=== PATIENT | male | born 1935 | race Caucasian/White ===

== ENCOUNTER 2020-12-04 18:33 | Emergency (ER) | payer MEDICARE, OTHER, SELFPAY ==
--- NOTE | ~2020-12-04 | CT_ITS ---
EXAMINATION: CT HEAD WITHOUT CONTRAST CLINICAL INFORMATION: Fall and head injury. COMPARISON: No similar priors. TECHNIQUE: Contiguous axial imaging was performed from the skull base to vertex without intravenous administration of contrast. This CT examination was performed using dose optimization techniques as appropriate, variously including the following: *Automated exposure control *Adjustment of mA and/or kV according to patient size (this includes techniques or standardized protocols for targeted exams where dose is matched to indication/reason for exam; i.e. extremities or head) *Use of iterative reconstruction technique DLP: 1154 mGy-cm FINDINGS: There is a small amount of subarachnoid blood products to the right of the interhemispheric falx on images 5253 of series 7 and to the left of the interhemispheric pole on image 50 of series 7. These are also identified on coronal images 87 and 100 of series 11. There is no evidence of edematous territorial infarction. Maldonado-white matter differentiation is preserved. Scattered hypodensities in the periventricular and deep white matter, most consistent with chronic microangiopathy. Proportional prominence of the ventricles and sulcal spaces. No evidence for obstructive hydrocephalus. No abnormal mass effect or midline shift. No extra-axial fluid collections. Hematoma in the occipital scalp. No acute osseous findings. Mucosal thickening of the right maxillary sinus. Other paranasal sinuses and mastoids are clear. CT/CT head/brain wo con IMPRESSION: Small amount of subarachnoid blood products adjacent to the interhemispheric fall as above. Recommend close observation and short-term follow-up imaging to ensure resolution. This critical result was discussed with Efra Jo at 12/04/2020 8:10 PM and it was ascertained that the content and urgency of the report was understood at the time of direct communication.
--- NOTE | ~2020-12-04 | CT_ITS ---
EXAMINATION: CT ABDOMEN AND PELVIS WITHOUT CONTRAST CLINICAL INFORMATION: Abdominal pain after fall COMPARISON: None TECHNIQUE: Multidetector volumetric imaging was performed from the superior aspect of the liver through the pubic symphysis. Sagittal and coronal reformatted images were obtained on the technologist's workstation. This CT examination was performed using dose optimization techniques as appropriate, variously including the following: *Automated exposure control *Adjustment of mA and/or kV according to patient size (this includes techniques or standardized protocols for targeted exams where dose is matched to indication/reason for exam; i.e. extremities or head) *Use of iterative reconstruction technique DLP: 1858 mGy-cm FINDINGS: Visualized lung bases demonstrate mild dependent atelectasis versus scarring. Coronary artery calcifications are partially visualized. The liver is normal in size but demonstrates diffusely decreased attenuation. Gallstones are noted within otherwise unremarkable appearing gallbladder. Fatty atrophy of the pancreas. The spleen and adrenal glands are unremarkable. Symmetrically sized kidneys. There are several nonobstructing renal calculi of the left kidney, largest is located within the lower pole measures approximately 1 cm. There is only a single 1 mm nonobstructing calculus of the right kidney. There is no hydronephrosis of either kidney. Bilateral renal cysts are demonstrated. Normal caliber loops of small and large bowel. Normal appendix. There is mild diffuse circumferential thickening of the rectum, nonspecific. Normal caliber abdominal aorta which demonstrates moderate atherosclerotic disease. No retroperitoneal lymphadenopathy. Punctate focus of air within the subcutaneous tissues of the right anterior abdomen are likely injection related. The bladder is well-distended. There is suspicion for mild diffuse bladder wall thickening. Coarse calcifications are noted within a mildly enlarged prostate gland. There is no gross pelvic fluid. No inguinal lymphadenopathy. Diffuse osteopenia. Moderate diffuse degenerative changes of the spine. Sternotomy wires are partially visualized. CT/CT abdomen pelvis wo con IMPRESSION: 1. No CT evidence for acute abnormality within the abdomen or pelvis. 2. Hepatic steatosis. 3. Cholelithiasis. 4. Bilateral nonobstructing renal calculi without hydronephrosis. 5. Colonic diverticulosis. 6. Mildly enlarged prostate gland with mild diffuse bladder wall thickening suggesting bladder outlet obstruction.
--- NOTE | ~2020-12-04 | XR_ITS ---
EXAMINATION: XR LUMBOSACRAL SPINE CLINICAL INFORMATION: Fall. Back injury. COMPARISON: None TECHNIQUE: Three views of the lumbosacral spine. FINDINGS: 5 nonrib-bearing lumbar vertebral bodies are visualized. Alignment is within normal limits. Vertebral body heights are maintained. Mild narrowing of the L3/4, L4/5 and L5/S1 disc space heights. Prominent anterior osteophytes are noted throughout the lumbar spine. There are mild degenerative changes of the posterior elements of the lower lumbar spine. Vascular calcifications noted. XR/XR lumbar spine 2-3V IMPRESSION: Mild to moderate degenerative changes of the lumbar spine without compression deformity.
[2020-12-04 18:39] VITALS: BP 115/74; BP 138/61; PULSE 69; PULSE 75; RESP 18; TEMP 36.9; O2SAT 99; BMI 29.6
--- NOTE | 2020-12-04 19:15 | ED.FALL ---
HPI - Fall General Chief Complaint: Fall Stated Complaint: slip and fall Time Seen by Provider: 12/04/20 19:13 Source: patient and EMS Mode of arrival: EMS Limitations: no limitations History of Present Illness HPI Narrative: Patient was taking a shower slipped on the wet floor and fell hit his head, no LOC, sustain small laceration on the back of his scalp, patient hit his low back complain of back pain, patient also complained of left side of the abdomen. No neck pain. Patient was able to get himself up and ambulate, came to the emergency department for further evaluation. Related Data Allergies Allergy/AdvReac Type Severity Reaction Status Date / Time No Known Allergies Allergy Verified 12/04/20 19:14 Review of Systems Review of Systems: All other systems are reviewed and are negative Constitutional: Reports as per HPI and Reports no additional constitutional complaints Eyes: Reports as per HPI and Reports no additional eye complaints Reports system reviewed and no additional complaints, except as documented Cardiovascular: Reports as per HPI and Reports no additional cardiovascular complaints Respiratory: Reports as per HPI and Reports no additional respiratory complaints Gastrointestinal: Reports as per HPI and Reports no additional gastrointestinal complaints Genitourinary: Reports no additional female genitourinary complaints Musculoskeletal: Reports no additional musculoskeletal complaints Skin/Breast: Reports system reviewed and no additional complaints, except as docu Psychiatric: Reports no additional psychiatric complaints Endocrine: Reports no additional endocrine complaints Hematologic/Lymphatic: Reports no additional hematologic/lymphatic complaints Allergic/Immunologic: Reports no additional allergic/immunologic complaints Reports system reviewed and no additional complaints, except as documented and Reports Abnormal speech present [facility] Social History Social History Advance Directives: No Advance Directives Information Provided: Yes Physical Exam Vital Signs: Vital Signs: Last Vital Signs Temp 98.2 F 12/04/20 22:03 Pulse 78 12/04/20 22:03 Resp 14 12/04/20 22:03 BP 160/64 H 12/04/20 22:03 Pulse Ox 100 12/04/20 22:03 Body Mass Index 29.6 Vital signs have been reviewed as appeared to be correct. Blood pressure normal. Heart rate normal. Respiration rate normal. Temperature normal. Oxygen saturation normal. Appearance: Alert. Oriented X3. No acute distress. Head: Normal external exam. Normocephalic. Atraumatic. 4 cm laceration on the back of the occiput, no active bleeding Eyes: PERRLA. EOMI. Conjunctiva and sclera normal. Eyelids normal. ENT: TM's Normal. Pharynx normal. Uvula midline. Moist mucous membranes. No trismus noted. No drooling noted. No muffled voice noted. Neck: Normal inspection. Neck supple. FROM. No adenopathy. Thyroid Normal. No meningeal signs. No neck mass noted. CVS: Normal heart rate and rhythm. Heart sound normal. No murmurs noted. Pulses normal throughout. Respiratory: No respiratory distress. Painless inspiration. Breath sounds normal. No wheezes/rales/rhonchi noted. Chest nontender. No accessory muscle usage noted or decreased air movement noted. Abdomen: Soft and nontender. Bowel sounds normal in all 4 quadrants. No distention noted. No organomegaly noted. No visible injury noted. Back: No CVA tenderness. Lumbar spine stable no step-off, no deformity. Skin: Skin warm and dry. Normal skin color. Normal skin turgor. No rashes/lesions/lacerations noted. Extremities: No lower extremity edema. Extremities exhibit normal range of motion. Extremities nontender. Neuro: Oriented X 3. Cranial nerve exam: II-XII are grossly intact No motor deficit. No sensory deficit. Reflexes normal. Course Course Course Narrative: Assessment and plan. 85-year-old male status post mechanical fall while taking a shower, GCS of 15, normal neural exam, CT of the head showed traumatic subarachnoid hemorrhage, case discussed with Dr. Leong trauma surgeon at [facility] who accepted the patient to be evaluated for trauma. Procedures Laceration Laceration 1: Site: scalp Size (cm): 4 Description: linear Depth: simple, single layer Local Anesthetic: lidocaine 1% Amount of anesthesia used (mL): 5 Pre-repair: wound explored Skin layer closed with: other (Nine staple) MDM - Fall Medical Records Attestation: I reviewed the patient's medical records. Lab Data Attestation: I reviewed the patient's lab results. Imaging Data Abdomen and pelvis CT: Radiologist's impression: 1.? No CT evidence for acute abnormality within the abdomen or pelvis. 2.? Hepatic steatosis. 3.? Cholelithiasis. 4.? Bilateral nonobstructing renal calculi without hydronephrosis. 5.? Colonic diverticulosis. 6.? Mildly enlarged prostate gland with mild diffuse bladder wall thickening suggesting bladder outlet obstruction.? CT scan - head: Radiologist's impression: mall amount of subarachnoid blood products adjacent to the interhemispheric fall as above. Recommend close observation and short-term follow-up imaging to ensure resolution. ? Discharge Plan Discharge Clinical Impression: Fall, Traumatic subarachnoid hemorrhage Patient Disposition: Xfer Other Transfer Details: [facility] emergency Department
[2020-12-04] MEDS: Lidocaine HCl 1 % MPF 5 ML VIAL SUBCUT (20:00)
[2020-12-04 20:22] VITALS: BP 154/53; PULSE 67; RESP 20; TEMP 36.6; O2SAT 100
--- NOTE | 2020-12-04 20:23 | PC.NURSE ---
PATIENT HEAD LAC WAS CLEAN BY THIS PCT .
--- NOTE | 2020-12-04 20:24 | PC.NURSE ---
PATIENT WAS CHANGE INTO HOSPITAL ATTIRE BY THIS PCT .
[2020-12-04 22:03] VITALS: BP 160/64; PULSE 78; RESP 14; TEMP 36.8; O2SAT 100
== END 2020-12-06 22:47 | disposition short-term general hospital (02) ==
PROVIDERS: Emergency Provider Emergency Medicine; PCP Internal Medicine
DX: S06.6X9A Traumatic subarachnoid hemorrhage with loss of consciousness of unspecified duration, initial encounter (principal); S01.01XA Laceration without foreign body of scalp, initial encounter; W18.2XXA Fall in (into) shower or empty bathtub, initial encounter; Y93.9 Activity, unspecified; Y92.002 Bathroom of unspecified non-institutional (private) residence as the place of occurrence of the external cause; Y99.9 Unspecified external cause status
CPT/HCPCS: 12002; 70450; 72100; 74176; 99283; 99284

== ENCOUNTER 2021-12-16 17:42 | Emergency (ER) | payer MEDICARE, OTHER, SELFPAY ==
[2021-12-16] VITALS (7 sets, daily range): BP systolic 144–170; BP diastolic 50–68; PULSE 55–63; RESP 16–18; TEMP 36.4–36.5; O2SAT 99; BMI 30.9
--- NOTE | ~2021-12-16 | CT_ITS ---
CT HEAD WITHOUT IV CONTRAST CT CERVICAL SPINE WITHOUT IV CONTRAST INDICATION: Fall. Head strike. COMPARISON: None available. TECHNIQUE: Multidetector CT acquisitions of the head and cervical spine were obtained without IV contrast. Multiplanar reformats were acquired and utilized for image interpretation. This CT examination was performed using dose optimization techniques as appropriate, variously including the following: *Automated exposure control *Adjustment of mA and/or kV according to patient size (this includes techniques or standardized protocols for targeted exams where dose is matched to indication/reason for exam; i.e. extremities or head) *Use of iterative reconstruction technique FINDINGS: HEAD: There is no intracranial hemorrhage, hydrocephalus, extra-axial surface collection, midline shift, or other herniation pattern. Maldonado to white matter differentiation is diffusely maintained without evidence of an evolved acute territorial infarct. The basilar cisterns are preserved. No significant soft tissue abnormality. No acute osseous abnormality. The paranasal sinuses and the mastoid air cells are well aerated. CERVICAL SPINE: No acute fractures and no acute subluxations. Bridging multilevel anterior plate osteophytes within the lower cervical and thoracic spine in keeping with diffuse idiopathic skeletal hyperostosis. There is multilevel hypertrophic facet arthropathy throughout the cervical spine. There is no prevertebral soft tissue swelling. CT/CT cervical spine wo IV con IMPRESSION: - No acute intracranial findings. 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 - No acute osseous findings within the cervical spine. There is multilevel cervical spondylosis and there is diffuse idiopathic skeletal hyperostosis within the lower cervical and partially imaged thoracic spine.
--- NOTE | ~2021-12-16 | CT_ITS ---
EXAMINATION: CT CHEST, ABDOMEN AND PELVIS WITH CONTRAST. CLINICAL INFORMATION: Trauma. Fall. Abdominal pain.. COMPARISON: CT abdomen and pelvis 12/04/2020. TECHNIQUE: Multidetector volumetric imaging was performed from the thoracic inlet through the pubic symphysis following administration of 85 mL Omnipaque 350.. Sagittal and coronal reformatted images were obtained on the technologist workstation. This CT examination was performed using dose optimization techniques as appropriate, variously including the following: * Automated exposure control * Adjustment of mA and/or kV according to patient size (this includes techniques or standardized protocols for targeted exams where dose is matched to indication/reason for exam; i.e. extremities or head) * Use of iterative reconstruction technique DLP: 684 mGy-cm FINDINGS: CHEST: LUNG: Chronic mild to moderate pulmonary fibrosis. Mild chronic airways disease. No endotracheal filling defect. No suspicious pulmonary mass or consolidation. MEDIASTINUM: Status post median sternotomy for bypass surgery with severe coronary disease. No mass or adenopathy. Aortic valve leaflet calcifications. Normal caliber thoracic aorta without aneurysm or dissection. No mediastinal hematoma. PERICARDIUM/PLEURA: No significant effusion. No pleural mass or thickening. CHEST WALL/AXILLA: Unremarkable. ABDOMEN/PELVIS: PERITONEAL SPACE:No significant free air or free fluid identified. LIVER, GALLBLADDER, BILIARY TREE: The liver is normal in size, shape, and attenuation. No focal hepatic lesion or biliary ductal dilatation is present. Small layering gallstones again noted without acute inflammation. PANCREAS: The pancreas is atrophic. SPLEEN: Unremarkable. ADRENAL GLANDS: Unremarkable. KIDNEYS AND URETERS: Multiple left-sided renal calculi. No hydronephrosis. Chronic perinephric fat stranding. Left renal cortical scarring. Right renal cyst. No follow-up indicated. BLADDER: The bladder is thick-walled. Similar appearance on prior. GASTROINTESTINAL TRACT: There is distention of the distal ileum by stool. No inflammation. This likely reflects incompetence of the ileocecal valve. Moderate stool burden throughout the large intestine. Sigmoid diverticulosis without diverticulitis. Normal retrocecal appendix. A few mildly dilated proximal jejunal bowel loops are noted without transition point to suggest obstruction. This may reflect a localized ileus. ABDOMINAL WALL: Subcutaneous fat stranding on the right likely injection site. Thinning of the anterior abdominal wall musculature without ventral hernia. LYMPHOVASCULAR STRUCTURES: Severe atherosclerotic peripheral vascular disease without aneurysm. No retroperitoneal adenopathy.. PELVIC VISCERA: Prostatomegaly. No pelvic free fluid or adenopathy. OSSEUS STRUCTURES: The sternum is well united. There appears to be bony ankylosis of the sacroiliac joints. No acute fracture identified. SPINE: Axial images are read in conjunction with coronal and sagittal reformats. There are flowing anterior dorsal osteophytes. No compression deformity or malalignment. Possible ankylosing spondylitis. CT/CT abdomen pelvis w IV con IMPRESSION: 1. No acute traumatic injury. 2. Chronic pulmonary fibrosis. 3. Constipation with stool reflux. 4. Possible jejunal ileus. 5. Nonspecific perinephric fat stranding. Left renal calculi without hydronephrosis. Chronically thick-walled bladder. 6. Diverticulosis without diverticulitis. 7. Possible ankylosing spondylitis. Fleischner criteria utilized.
--- NOTE | ~2021-12-16 | CT_ITS ---
CT HEAD WITHOUT IV CONTRAST CT CERVICAL SPINE WITHOUT IV CONTRAST INDICATION: Fall. Head strike. COMPARISON: None available. TECHNIQUE: Multidetector CT acquisitions of the head and cervical spine were obtained without IV contrast. Multiplanar reformats were acquired and utilized for image interpretation. This CT examination was performed using dose optimization techniques as appropriate, variously including the following: *Automated exposure control *Adjustment of mA and/or kV according to patient size (this includes techniques or standardized protocols for targeted exams where dose is matched to indication/reason for exam; i.e. extremities or head) *Use of iterative reconstruction technique FINDINGS: HEAD: There is no intracranial hemorrhage, hydrocephalus, extra-axial surface collection, midline shift, or other herniation pattern. [place] to white matter differentiation is diffusely maintained without evidence of an evolved acute territorial infarct. The basilar cisterns are preserved. No significant soft tissue abnormality. No acute osseous abnormality. The paranasal sinuses and the mastoid air cells are well aerated. CERVICAL SPINE: No acute fractures and no acute subluxations. Bridging multilevel anterior plate osteophytes within the lower cervical and thoracic spine in keeping with diffuse idiopathic skeletal hyperostosis. There is multilevel hypertrophic facet arthropathy throughout the cervical spine. There is no prevertebral soft tissue swelling. CT/CT head/brain wo IV con IMPRESSION: - No acute intracranial findings. 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 - No acute osseous findings within the cervical spine. There is multilevel cervical spondylosis and there is diffuse idiopathic skeletal hyperostosis within the lower cervical and partially imaged thoracic spine.
--- NOTE | 2021-12-16 17:48 | ECG_ITS ---
Test Reason : FALL Blood Pressure : / mmHG Vent. Rate : 054 BPM Atrial Rate : 054 BPM P-R Int : 158 ms QRS Dur : 090 ms QT Int : 442 ms P-R-T Axes : -06 -12 035 degrees QTc Int : 419 ms Sinus bradycardia Left axis deviation Otherwise normal ECG No previous ECGs available Referred By: Delfino Putnam Electronically Signed By:NICK SANTIAGO MD
--- NOTE | 2021-12-16 17:51 | ED.FALL ---
HPI - Fall General Chief Complaint: Fall Stated Complaint: fall n/v Time Seen by Provider: 12/16/21 18:06 Source: patient Mode of arrival: ambulatory Limitations: no limitations History of Present Illness HPI Narrative: This is an 86-year-old male presenting to the emergency department status post trip and fall with head strike, unknown down time. Patient is coming from [facility], he typically goes out for a walk without difficulties however today he tells me he tripped going down a hill, fell to the ground and was unable to get up. He tells me his whole body hurts. He also reports after he hit hit his head and felt he started having episodes of nausea and vomiting reports having a few episodes prior to arrival, he denies loss of consciousness, not on blood thinners. Patient is sitting with his eyes closed he tells me it is more comfortable however denies headache, vision changes, dizziness, neck pain. Patient also denies chest pain, shortness of breath, abdominal pain. Related Data Allergies Allergy/AdvReac Type Severity Reaction Status Date / Time Unable to Assess Allergy Verified 12/16/21 19:55 Review of Systems Review of Systems: Constitutional : No Weight loss, No Fever, No Chills, No Fatigue, No Malaise ENT/Mouth : No sore throat, No Rhinorrhea Eyes: No Eye Pain, No Swelling, No Redness Cardiovascular : No Chest Pain, No SOB, No Dyspnea on Exertion, No Orthopnea, No Edema, No Palpitations Respiratory : No Cough, No Sputum, No Wheezing Gastrointestinal : No Nausea, No Vomiting, No Diarrhea, No Constipation, No abdominal Pain, No Hematochezia, No Melena Genitourinary : No Dysuria, No Urinary Frequency, No Hematuria, Musculoskeletal : No joint pain, + Myalgias, No Joint Swelling Skin : No Skin Lesions, No rash Neuro : + Weakness, No Numbness, No Dizziness, No Headache Psych : No Anxiety/Panic, No Depression All other systems reviewed and are negative Yes all other systems are reviewed and are negative [facility] Past Medical History Attestation statement: The following information was validated with the patient. Source: old records reviewed and nursing notes reviewed Social History Social History Advance Directives: No Advance Directives Information Provided: No Physical Exam Vital Signs: Vital Signs: Last Vital Signs Temp 97.7 F 12/16/21 23:09 Pulse 66 12/17/21 01:19 Resp 16 12/16/21 23:09 BP 146/65 H 12/17/21 01:19 Pulse Ox 99 12/16/21 23:09 O2 Del Method 12/16/21 23:09 BMI result Body Mass Index 30.9 vss Patient hypothermic placed on Varun Hugger Appearance: Alert.? Oriented X3.? No acute distress.? Head: Normocephalic, atraumatic, no step-offs or deformities Eyes: Pupils equal, round and reactive to light.? Neck: Normal inspection.? Neck supple.?In collar. CVS: Normal heart rate and rhythm.? Pulses normal.? Respiratory: No respiratory distress.? Breath sounds normal.? Abdomen: Soft and nontender.?Mild ecchymosis to right lower abdomen Skin: Skin warm and dry.? Normal skin color.? Normal skin turgor.? Extremities: No lower extremity edema.? No calf ttp. 5/5 strength to bilateral upper and lower extremities Neuro: Oriented X 3.? No motor deficit.? No sensory deficit. CN 2-12 intact . Patient ambulating with steady gait normal coordination. Course Course Course Narrative: Discussed this case with my attending Dr. Hernandez Reevaluation(s) Reevaluation #1: Patient's CBC appears to be around normal limits. Chemistry with no acute findings requiring intervention. Patient's lactic acid noted to be 2.3, however likely likely lactic acidosis secondary to metformin unlikely infectious. Time: 20:00 Reevaluation #2: Second lactic acid normalized, again I suspect lactic acidosis unlikely that this is infectious in origin. Patient feeling better, no complaints. Patient's urine is clean. COVID negative. CT of the chest with no acute traumatic injury, chronic pulmonary fibrosis constipation is noted a possible jejunal ileus however patient having normal bowel movements therefore therefore low suspicion. CT of the head and cervical spine with no acute findings. Dr. Hernandez to review chart prior to DC back. Orthostatic vitals pending. Time: 23:22 Reevaluation #3: Nicole Hernandez to chart review on patient and feels as though he is comfortable for discharge home as long as orthostatics are negative, Time: 23:26 Additional Reevaluation(s): 2350 Patient with positive orthostatic vital signs likely secondary to nausea vomiting, poor p.o. intake/dehydration. Will hydrate and recheck. At this time patient eating and drinking without difficulty. Ambulating with steady gait. Will hydrate and repeat orthostatics. 0141 Discuss this case with my attending Dr. Hernandez, reviewed orthostatic vitals, patient eating and drinking, appears well, able to ambulate without difficulties this time patient will be discharged back to facility. Advised to return with new or worsening symptoms. At this time I feel comfortable discharge. Medications Administered Discontinued Medications Generic Name Dose Route Start Last Admin Trade Name Ronnyq PRN Reason Stop Dose Admin Sodium Chloride 1,000 mls @ 999 mls/hr 12/16/21 21:00 12/16/21 23:14 Ns IV 12/16/21 22:00 999 mls/hr .Q1H1M AISHA Administration Iohexol 100 ml 12/16/21 21:22 12/16/21 21:23 Iohexol 350 Mg/Ml 100 Ml Infus..Btl IV 12/16/21 21:23 85 ml ONCE ONE Administration MDM - Fall MDM Narrative Medical decision making narrative: 1750 86-year-old male presents via ambulance status post trip and fall, unwitnessed, unknown down time, patient not on blood thinners. After head strike patient had nausea, vomiting multiple times was given Zofran with some relief. Denies any preceding symptoms. Tells me that he just tripped. He was able to call for help with his Life Alert. Denies loss of consciousness. Physical examination with slight ecchymosis to the right lower abdomen, regular rate and rhythm, lungs clear, abdomen soft nontender nondistended, pupils equal round and reactive to light, neuro nonfocal, cerebellar intact. GCS of 15 NIH stroke scale negative. Concerns for possible intracranial hemorrhage. Will rule out traumatic injuries in the chest, abdomen and pelvis. As well as cervical spine. Will rule out electrolyte abnormalities, infection. Will also rule out orthostatic hypotension. Plan at this time is labs, imaging, urine, EKG, troponin. Medical Records Attestation: I reviewed the patient's medical records. Lab Data Attestation: I reviewed the patient's lab results. Result diagrams: 12/16/21 18:05 12/16/21 19:10 Labs: Lab Results 12/16/21 12/16/21 12/16/21 Range/Units 18:05 18:05 18:05 WBC 8.1 (4.8-10.8) X10*3/uL RBC 3.69 L (4.60-5.80) X10*6/uL Hgb 12.4 L (14.0-18.0) g/dl Hct 34.6 L (42.0-52.0) % MCV 93.8 (80.0-98.0) fL MCH 33.6 H (27.0-33.0) pg MCHC 35.8 (31.0-36.0) g/dl RDW 13.5 (11.0-16.0) % Plt Count 121 L (160-400) X10*3/uL MPV 9.6 (9.4-12.4) fL Immature Gran % (Auto) 0.4 (0.0-0.4) % Neut % (Auto) 75.7 H (45-73) % Lymph % (Auto) 16.6 L (20-40) % [place] % (Auto) 4.2 (2-11) % Eos % (Auto) 2.7 (0-4) % Baso % (Auto) 0.4 (0-2) % Lymph # (Auto) 1.4 (1.2-4.9) X10*3/uL [place] # (Auto) 0.3 (0.1-1.2) X10*3/uL Eos # (Auto) 0.2 (0.0-0.4) X10*3/uL Baso # (Auto) 0.0 (0.0-0.2) X10*3/uL Abs Immat Gran (auto) 0.03 (0.00-0.03) X10*3/uL Absolute Neuts (auto) 6.1 (2.0-8.3) x10*3/uL Absolute Nucleated RBC 0.000 (0.0-0.012) X10*3/uL Nucleated RBC % (auto) 0.0 (0.0-0.2) /100WBC PT 13.5 H (10.0-13.1) SEC INR 1.2 H (0.9-1.1) Sodium (135-145) mmol/L Potassium (3.3-5.1) mmol/L Chloride (96-108) mmol/L Carbon Dioxide (22-29) mmol/L Anion Gap (12-20) BUN (9-16) mg/dL Creatinine (0.5-1.4) mg/dL Estim Creat Clear Calc Estimated GFR Random Glucose (60-115) mg/dL Lactic Acid (0.5-2.0) mmol/L Lactic Acid F/U @ 2Hr (0.5-2.0) mmol/L Calcium (8.4-10.2) mg/dL Magnesium (1.6-2.6) mg/dL Total Bilirubin (0.0-1.0) mg/dL AST (5-37) U/L ALT (0-40) U/L Alkaline Phosphatase (39-117) U/L Total Creatine Kinase (38-174) U/L Troponin I High Sens 3.7 (<3.5-35.0) ng/L B-Natriuretic Peptide (<100) pg/mL Total Protein (6.5-8.0) g/dL Albumin (3.5-5.0) g/dL Lipase (8-78) U/L Urine Color Urine Appearance Urine pH (5.0-9.0) Ur Specific [place] (1.005-1.025) Urine Protein (Neg-Trace) mg/dL Urine Glucose (UA) (Negative) mg/dL Urine Ketones (Negative) mg/dL Urine Blood (Negative) Urine Nitrite (Negative) Ur Leukocyte Esterase (Negative) Urine RBC (0-2) /HPF Urine WBC (0-5) /HPF Ur Squamous Epith Cells (0-2) /HPF Urine Bacteria (None Seen) Hyaline Casts (0-2) /LPF COVID-19 (ZACKARY) (Negative) COVID-19 Clin Com 12/16/21 12/16/21 12/16/21 Range/Units 18:06 19:09 19:10 WBC (4.8-10.8) X10*3/uL RBC (4.60-5.80) X10*6/uL Hgb (14.0-18.0) g/dl Hct (42.0-52.0) % MCV (80.0-98.0) fL MCH (27.0-33.0) pg MCHC (31.0-36.0) g/dl RDW (11.0-16.0) % Plt Count (160-400) X10*3/uL MPV (9.4-12.4) fL Immature Gran % (Auto) (0.0-0.4) % Neut % (Auto) (45-73) % Lymph % (Auto) (20-40) % [place] % (Auto) (2-11) % Eos % (Auto) (0-4) % Baso % (Auto) (0-2) % Lymph # (Auto) (1.2-4.9) X10*3/uL [place] # (Auto) (0.1-1.2) X10*3/uL Eos # (Auto) (0.0-0.4) X10*3/uL Baso # (Auto) (0.0-0.2) X10*3/uL Abs Immat Gran (auto) (0.00-0.03) X10*3/uL Absolute Neuts (auto) (2.0-8.3) x10*3/uL Absolute Nucleated RBC (0.0-0.012) X10*3/uL Nucleated RBC % (auto) (0.0-0.2) /100WBC PT (10.0-13.1) SEC INR (0.9-1.1) Sodium 141 (135-145) mmol/L Potassium 4.7 (3.3-5.1) mmol/L Chloride 106 (96-108) mmol/L Carbon Dioxide 21 L (22-29) mmol/L Anion Gap 19 (12-20) BUN 22 H (9-16) mg/dL Creatinine 1.40 (0.5-1.4) mg/dL Estim Creat Clear Calc 44.4 Estimated GFR 48 Random Glucose 123 H (60-115) mg/dL Lactic Acid 2.3 H* (0.5-2.0) mmol/L Lactic Acid F/U @ 2Hr (0.5-2.0) mmol/L Calcium 9.1 (8.4-10.2) mg/dL Magnesium 1.9 (1.6-2.6) mg/dL Total Bilirubin 0.9 (0.0-1.0) mg/dL AST 16 (5-37) U/L ALT 13 (0-40) U/L Alkaline Phosphatase 64 (39-117) U/L Total Creatine Kinase 52 (38-174) U/L Troponin I High Sens (<3.5-35.0) ng/L B-Natriuretic Peptide 36 (<100) pg/mL Total Protein 7.0 (6.5-8.0) g/dL Albumin 4.3 (3.5-5.0) g/dL Lipase 36 (8-78) U/L Urine Color Urine Appearance Urine pH (5.0-9.0) Ur Specific [place] (1.005-1.025) Urine Protein (Neg-Trace) mg/dL Urine Glucose (UA) (Negative) mg/dL Urine Ketones (Negative) mg/dL Urine Blood (Negative) Urine Nitrite (Negative) Ur Leukocyte Esterase (Negative) Urine RBC (0-2) /HPF Urine WBC (0-5) /HPF Ur Squamous Epith Cells (0-2) /HPF Urine Bacteria (None Seen) Hyaline Casts (0-2) /LPF COVID-19 (ZACKARY) (Negative) COVID-19 Clin Com 12/16/21 12/16/21 12/16/21 Range/Units 19:10 22:02 22:02 WBC (4.8-10.8) X10*3/uL RBC (4.60-5.80) X10*6/uL Hgb (14.0-18.0) g/dl Hct (42.0-52.0) % MCV (80.0-98.0) fL MCH (27.0-33.0) pg MCHC (31.0-36.0) g/dl RDW (11.0-16.0) % Plt Count (160-400) X10*3/uL MPV (9.4-12.4) fL Immature Gran % (Auto) (0.0-0.4) % Neut % (Auto) (45-73) % Lymph % (Auto) (20-40) % [place] % (Auto) (2-11) % Eos % (Auto) (0-4) % Baso % (Auto) (0-2) % Lymph # (Auto) (1.2-4.9) X10*3/uL [place] # (Auto) (0.1-1.2) X10*3/uL Eos # (Auto) (0.0-0.4) X10*3/uL Baso # (Auto) (0.0-0.2) X10*3/uL Abs Immat Gran (auto) (0.00-0.03) X10*3/uL Absolute Neuts (auto) (2.0-8.3) x10*3/uL Absolute Nucleated RBC (0.0-0.012) X10*3/uL Nucleated RBC % (auto) (0.0-0.2) /100WBC PT (10.0-13.1) SEC INR (0.9-1.1) Sodium (135-145) mmol/L Potassium (3.3-5.1) mmol/L Chloride (96-108) mmol/L Carbon Dioxide (22-29) mmol/L Anion Gap (12-20) BUN (9-16) mg/dL Creatinine (0.5-1.4) mg/dL Estim Creat Clear Calc Estimated GFR Random Glucose (60-115) mg/dL Lactic Acid (0.5-2.0) mmol/L Lactic Acid F/U @ 2Hr 1.1 (0.5-2.0) mmol/L Calcium (8.4-10.2) mg/dL Magnesium (1.6-2.6) mg/dL Total Bilirubin (0.0-1.0) mg/dL AST (5-37) U/L ALT (0-40) U/L Alkaline Phosphatase (39-117) U/L Total Creatine Kinase (38-174) U/L Troponin I High Sens (<3.5-35.0) ng/L B-Natriuretic Peptide (<100) pg/mL Total Protein (6.5-8.0) g/dL Albumin (3.5-5.0) g/dL Lipase (8-78) U/L Urine Color Yellow Urine Appearance Clear Urine pH 6.5 (5.0-9.0) Ur Specific [place] 1.015 (1.005-1.025) Urine Protein 100 (2+) H (Neg-Trace) mg/dL Urine Glucose (UA) Negative (Negative) mg/dL Urine Ketones Negative (Negative) mg/dL Urine Blood Negative (Negative) Urine Nitrite Negative (Negative) Ur Leukocyte Esterase Negative (Negative) Urine RBC 0-2 (0-2) /HPF Urine WBC 0-5 (0-5) /HPF Ur Squamous Epith Cells 0-2 (0-2) /HPF Urine Bacteria None Seen (None Seen) Hyaline Casts 0-2 (0-2) /LPF COVID-19 (ZACKARY) Negative (Negative) COVID-19 Clin Com See Note ECG Data Attestation: I personally reviewed and interpreted this ECG as follows: ECG interpretation date: 12/16/21 ECG interpretation time: 18:13 Prior ECG tracings: not available for review Interpretation: Ventricular rate of 54, DE normal, QRS normal, QT/QTC normal, EKG with sinus bradycardia, no ST elevations or inversions concerning for ischemia, no previous EKGs to compare with. Critical Care Time Critical Care Time Critical Care Time: No Discharge Plan Discharge Clinical Impression: Fall, Nausea & vomiting, Hypothermia, Concussion without loss of consciousness Patient Disposition: Still a Patient Instructions: Concussion (ED), Fall Prevention for Older Adults (ED), Acute Nausea and Vomiting (ED), Acute Hypothermia (ED), Post Concussion Syndrome (ED), Fall Prevention (ED) Additional Instructions: Take your medications as prescribed. If you were prescribed antibiotics today, it is important that you take your medication to their entirety, do not skip any doses, do not finish them early. Follow-up with your primary care provider this week. Return to the emergency department with new or worsening symptoms. Such as fevers, chills, chest pain, shortness of breath, nausea, vomiting, dizziness, headache, vision changes, lethargy In case of emergency call 911 Drink plenty of fluids. Referrals: Physician,Unknown J [Primary Care Provider] - 2 days Stand Alone Forms: Work/School Release
[2021-12-16 18:11] LABS: MANUAL DIFF FLAG NO
[2021-12-16 18:15] LABS: Basophils Percent Auto 0.4 % (0-2); Eosinophils Absolute Auto 0.2 X10*3/uL (0.0-0.4); Eosinophils Percent Auto 2.7 % (0-4); Hematocrit 34.6 % (42.0-52.0); Hemoglobin 12.4 g/dl (14.0-18.0); Imm Gran Abs Auto 0.03 X10*3/uL (0.00-0.03); Imm Gran Pct Auto 0.4 % (0.0-0.4); Lymphocytes Absolute Auto 1.4 X10*3/uL (1.2-4.9); Lymphocytes Percent Auto 16.6 % (20-40); Mean Corpuscular HGB Conc 35.8 g/dl (31.0-36.0); Mean Corpuscular Hemoglobin 33.6 pg (27.0-33.0); Mean Corpuscular Volume 93.8 fL (80.0-98.0); Mean Platelet Volume 9.6 fL (9.4-12.4); Monocytes Absolute Auto 0.3 X10*3/uL (0.1-1.2); Monocytes Percent Auto 4.2 % (2-11); Neutrophils Absolute Auto 6.1 x10*3/uL (2.0-8.3); Neutrophils Percent Auto 75.7 % (45-73); Platelet Count 121 X10*3/uL (160-400); Red Blood Count 3.69 X10*6/uL (4.60-5.80); Red Cell Distribution Width 13.5 % (11.0-16.0); White Blood Count 8.1 X10*3/uL (4.8-10.8)
[2021-12-16 18:21] LABS: INTERNATIONAL NORM RATIO 1.2 (0.9-1.1); Prothrombin Time 13.5 SEC (10.0-13.1)
[2021-12-16 18:35] LABS: Troponin-I High Sensitivity 3.7 ng/L (<3.5-35.0)
[2021-12-16 18:38] LABS: B Type Natriuretic Peptide 36 pg/mL (<100)
[2021-12-16 19:32] LABS: Alanine Aminotransferase 13 U/L (0-40); Albumin Level 4.3 g/dL (3.5-5.0); Alkaline Phosphatase 64 U/L (39-117); Anion Gap 19 (12-20); Aspartate Amino Transferase 16 U/L (5-37); Bilirubin Total 0.9 mg/dL (0.0-1.0); Blood Urea Nitrogen 22 mg/dL (9-16); Calcium 9.1 mg/dL (8.4-10.2); Carbon Dioxide 21 mmol/L (22-29); Chloride 106 mmol/L (96-108); Creatinine Clr Calc Pharmacy 44.4; Estimated Glomerular Filt Rate 48; Glucose Random 123 mg/dL (60-115); Lipase 36 U/L (8-78); Magnesium 1.9 mg/dL (1.6-2.6); Potassium 4.7 mmol/L (3.3-5.1); Sodium 141 mmol/L (135-145)
[2021-12-16 19:35] LABS: COVID-19 Test Negative (Negative)
[2021-12-16 19:44] LABS: Lactic Acid 2.3 mmol/L (0.5-2.0)
[2021-12-16 21:13] LABS: Reflex Lactate? Lactic Acid Added
[2021-12-16] MEDS: iohexoL 350 MG/ML 100 ML INFUS..BTL IV (21:23)
[2021-12-16 22:09] LABS: Appearance Urine Clear; Color Urine Yellow; Glucose Urine UA Negative (Negative); Leukocyte Esterase Urine Negative (Negative); Nitrite Urine Negative (Negative); PH 6.5 (5.0-9.0); Specific Gravity - Urine 1.015 (1.005-1.025); UMIC TRIGGER UACC YES; Urine Blood Negative (Negative); Urine Ketones Negative (Negative); Urine Protein 100 (2+) mg/dL (Neg-Trace)
[2021-12-16 22:14] LABS: Bacteria Urine None Seen (None Seen); Hyaline Casts Urine 0-2 /LPF (0-2); RBC Urine 0-2 /HPF (0-2); Squamous Epithelial Cell Urine 0-2 /HPF (0-2); WBC Urine 0-5 /HPF (0-5)
[2021-12-16 22:17] LABS: ~Lactic Acid-LAB USE ONLY 1.1 mmol/L (0.5-2.0)
[2021-12-16] MEDS: 0.9 % Sodium Chloride 1,000 ML 999 ML IV (23:14)
[2021-12-17] VITALS (9 sets, daily range): BP systolic 124–164; BP diastolic 47–75; PULSE 51–73; RESP 18–24; TEMP 36.4–36.7; O2SAT 97–99
--- NOTE | 2021-12-17 | PC.NURSE ---
Patient ambulated about 80 ft independently with supervision of this RN. Gait is slow, but steady. Patient denies dizziness, lightheadedness with position changes/ambulation.
[2021-12-17] MEDS: 0.9 % Sodium Chloride 1,000 ML 999 ML IV ×2 (03:00→06:37)
--- NOTE | 2021-12-17 06:53 | PC.NURSE ---
NS scanned apt appropiately at 0300 medication did not save.
--- NOTE | 2021-12-17 07:56 | PC.NURSE ---
Patient a/ox4 . went over discharge instructions as ordered by provider . patient to return if symptoms worsen . patient transported via EMS . has no questions at this time . follow up with primary care .
== END 2021-12-17 07:58 | disposition still patient (30) ==
PROVIDERS: Physician Assistant; Emergency Provider Internal Medicine
DX: S06.0X0A Concussion without loss of consciousness, initial encounter (principal); S30.1XXA Contusion of abdominal wall, initial encounter; W17.81XA Fall down embankment (hill), initial encounter; T68.XXXA Hypothermia, initial encounter; X31.XXXA Exposure to excessive natural cold, initial encounter; R11.2 Nausea with vomiting, unspecified; M79.10 Myalgia, unspecified site; Z91.81 History of falling; Y93.01 Activity, walking, marching and hiking; Y92.410 Unspecified street and highway as the place of occurrence of the external cause; Y99.9 Unspecified external cause status; Z20.822 Contact with and (suspected) exposure to COVID-19
CPT/HCPCS: 36415; 70450; 71260; 72125; 74177; 80053; 81001; 82550; 83605; 83690; 83735; 83880; 84484; 85025; 85610; 87040; 87635; 93005; 96360; 96361; 99285; Q9967

== ENCOUNTER 2022-08-22 02:25 | Inpatient (IN) | payer MEDICARE, OTHER, SELFPAY ==
--- NOTE | ~2022-08-22 | XR_ITS ---
EXAMINATION: XR HIP, RIGHT CLINICAL INFORMATION: Fall, right hip pain COMPARISON: 12/16/2021 TECHNIQUE: Two views of the right hip. AP pelvis. FINDINGS: There is a mildly displaced intertrochanteric fracture of the right femur. Alignment across the hips appears anatomic with severe degenerative change including joint space narrowing and spurring. Sacroiliac joints and pubic symphysis are intact. There are extensive vascular calcifications. XR/XR hip RT min 2V IMPRESSION: Mildly displaced intertrochanteric fracture of the right femur.
--- NOTE | ~2022-08-22 | FL_ITS ---
EXAMINATION: XR FLUOROSCOPY WITH IMAGES CLINICAL INFORMATION: ORIF fracture of right hip COMPARISON: Right hip 08/22/2022 TECHNIQUE: DOSE-43.7 mGy DAP-0.733 mGym2 TIME-1.3 min IMAGES-4 PERFORMED BY FL/FL guidance in OR FINDINGS/IMPRESSION: Status post placement of compression screw and intramedullary ursula transfixing fracture of the hip.
--- NOTE | ~2022-08-22 | XR_ITS ---
EXAMINATION: XR CHEST CLINICAL INFORMATION: Hip fracture COMPARISON: 12/16/2021 TECHNIQUE: Frontal view of the chest was obtained. FINDINGS: The lungs are clear with no focal consolidation. No evidence of pneumothorax, pulmonary edema, or pleural effusions. Cardiac size is within normal limits. Calcification is present at the aortic arch. Sternal wires are present. No acute osseous findings are seen. XR/XR chest 1V IMPRESSION: No acute cardiopulmonary findings.
[2022-08-22 02:39] VITALS: BP 150/67; PULSE 68; RESP 20; TEMP 36.6; O2SAT 99; BMI 30.7
[2022-08-22] MEDS: oxyCODONE HCl Immed Release 5 MG TABLET PO (03:27)
[2022-08-22 03:41] LABS: Basophils Percent Auto 0.2 % (0-2); Eosinophils Absolute Auto 0.1 X10*3/uL (0.0-0.4); Eosinophils Percent Auto 1.3 % (0-4); Hematocrit 34.6 % (42.0-52.0); Hemoglobin 12.1 g/dl (14.0-18.0); Imm Gran Abs Auto 0.04 X10*3/uL (0.00-0.03); Imm Gran Pct Auto 0.4 % (0.0-0.4); Lymphocytes Absolute Auto 1.4 X10*3/uL (1.2-4.9); Lymphocytes Percent Auto 14.2 % (20-40); MANUAL DIFF FLAG NO; Mean Corpuscular Hemoglobin 33.2 pg (27.0-33.0); Mean Corpuscular Volume 95.1 fL (80.0-98.0); Mean Platelet Volume 9.4 fL (9.4-12.4); Monocytes Absolute Auto 0.5 X10*3/uL (0.1-1.2); Monocytes Percent Auto 4.9 % (2-11); Neutrophils Absolute Auto 7.7 x10*3/uL (2.0-8.3); Platelet Count 130 X10*3/uL (160-400); Red Blood Count 3.64 X10*6/uL (4.60-5.80); Red Cell Distribution Width 13.3 % (11.0-16.0); White Blood Count 9.8 X10*3/uL (4.8-10.8)
--- NOTE | 2022-08-22 03:45 | ED_ITS ---
HPI - Fall General Chief Complaint: Fall Stated Complaint: FALL Time Seen by Provider: 08/22/22 03:16 Source: patient Mode of arrival: EMS Limitations: no limitations History of Present Illness HPI Narrative: Patient comes to the emergency room complaining of severe right hip pain after falling. Patient states that this was a mechanical fall, patient landed on the right side of his body, did not hit his head, did not lose consciousness, patient on blood thinners. Patient states that he was able to drag himself from the kitchen to the phone and call 911. Patient complaining of severe pain in the right hip, unable to move the leg/hip in any direction due to severe pain Related Data Allergies Allergy/AdvReac Type Severity Reaction Status Date / Time No Known Allergies Allergy Verified 08/22/22 02:38 Review of Systems Review of Systems: Constitutional : No Weight loss, No Fever, No Chills, No Night Sweats, No Fatigue, No Malaise ENT/Mouth : No Hearing loss, No Ear Pain, No Nasal Congestion, No Sinus Pain, No Hoarseness, No sore throat, No Rhinorrhea, No Swallowing Difficulty Eyes: No Eye Pain, No Swelling, No Redness, No Foreign Body, No Discharge, No Vision Changes Cardiovascular : No Chest Pain, No SOB, No Dyspnea on Exertion, No Orthopnea, No Edema, No Palpitations Respiratory : No Cough, No Sputum, No Wheezing, No Smoke Exposure, No Dyspnea Gastrointestinal : No Nausea, No Vomiting, No Diarrhea, No Constipation, No abdominal Pain, No Hematochezia, No Melena Genitourinary : no irregular bleeding, No Dysuria, No Urinary Frequency, No H ematuria, No Urinary Incontinence, No Urgency, No Flank Pain, No Urinary Flow Changes, No Hesitancy Musculoskeletal : Complaining of severe right-sided hip pain No Myalgias, No Joint Swelling Skin : No Skin Lesions, No rash Neuro : No Weakness, No Numbness, No Paresthesias, No Loss of Consciousness, No Dizziness, No Headache Psych : No Anxiety/Panic, No Depression, No SI/HI/AH/VH, No Social Issues, Heme/Lymph: No Bruising, No Bleeding,No Lymphadenopathy Endocrine : No Polyuria, No Polydipsia, No Temperature Intolerance PMFSH Past Medical History Medical History Diabetes Glaucoma Hyperlipidemia Hypertension Social History Social History Alcohol intake: current Alcohol intake frequency: a few times a week Alcohol type: wine and hard liquor Advance Directives: No Advance Directives Information Provided: No Physical Exam Vital Signs: Vital Signs: Last Vital Signs Temp 97.8 F 08/22/22 02:39 Pulse 66 08/22/22 05:09 Resp 17 08/22/22 05:09 BP 145/56 H 08/22/22 05:09 Pulse Ox 99 08/22/22 05:09 O2 Del Method Room Air 08/22/22 05:09 BMI result Body Mass Index 30.7 Const: Other: Appearance: Alert. Oriented X3. Seems to be in pain Eyes: Pupils equal, round and reactive to light. ENT: Pharynx normal. Neck: Normal inspection. Neck supple. No lymph nodes noted. No crepitus CVS: Normal heart rate and rhythm. Pulses normal. Normal S1 and S2 Respiratory: No respiratory distress. Breath sounds normal. No Wheezing. No rales Abdomen: Soft and nontender. No rigidity. No distention. Skin: Skin warm and dry. Normal skin color. Normal skin turgor. Extremities: No lower extremity edema. Shortened externally rotated right leg Neuro: Oriented X 3. No motor deficit. No sensory deficit. Moving all extremities. No slurred speech. CN 2 through 12 grossly intact Psych: calm, cooperative, normal affect Course Course Course Narrative: -patient's physical exam, patient likely has a hip fracture -labs and imaging pending Medications Administered Generic Name Dose Route Start Last Admin Trade Name Freq PRN Reason Stop Dose Admin Sodium Chloride 1,000 mls @ 999 mls/hr 08/22/22 04:45 08/22/22 05:10 Ns IVCONT 08/22/22 05:45 999 mls/hr .Q1H1M ONE Administration Discontinued Medications Generic Name Dose Route Start Last Admin Trade Name Freq PRN Reason Stop Dose Admin Morphine Sulfate 4 mg 08/22/22 04:47 08/22/22 05:10 Morphine Sulfate 4 Mg/Ml Cartridge IVPUSH 08/22/22 04:48 4 mg ONCE ONE Administration Protocol Ondansetron HCl 4 mg 08/22/22 04:47 08/22/22 05:10 Ondansetron Hcl 4 Mg/2 Ml Vial IVPUSH 08/22/22 04:48 4 mg ONCE ONE Administration Oxycodone HCl 5 mg 08/22/22 03:16 08/22/22 03:27 Oxycodone Hcl Immed Release 5 Mg Tablet PO 08/22/22 03:17 5 mg ONCE ONE Administration Medical Decision Making Medical Decision Making [facility] Narrative: -my interpretation of x-rays of the hip: Displaced intertrochanteric fracture of the right femur -I discussed the imaging with the patient, patient will need to be admitted and get surgery -I discussed the patient and imaging with orthopedics on-call, patient is to be NPO -I discussed the patient with Dr. Menchaca, patient being admitted My interpretation of labs, patient has mild ORION, patient receiving fluids Differential Diagnosis Differential Diagnoses: The differential diagnosis associated with the presentation includes (Hip fracture, dislocation, contusion) Admission/Observation Consideration of admission/observation: Escalation of care including admission/observation considered Consult Healthcare Provider Management of the patient was discussed with: Hospitalist and Director Of Intelligence Lab Data [facility] Lab Attestation statement: I reviewed the patient's lab results. 08/22/22 03:36 08/22/22 03:36 Labs: Lab Results 08/22/22 08/22/22 08/22/22 Range/Units 03:36 03:36 03:36 WBC 9.8 (4.8-10.8) X10*3/uL RBC 3.64 L (4.60-5.80) X10*6/uL Hgb 12.1 L (14.0-18.0) g/dl Hct 34.6 L (42.0-52.0) % MCV 95.1 (80.0-98.0) fL MCH 33.2 H (27.0-33.0) pg MCHC 35.0 (31.0-36.0) g/dl RDW 13.3 (11.0-16.0) % Plt Count 130 L (160-400) X10*3/uL MPV 9.4 (9.4-12.4) fL Immature Gran % (Auto) 0.4 (0.0-0.4) % Neut % (Auto) 79.0 H (45-73) % Lymph % (Auto) 14.2 L (20-40) % [place] % (Auto) 4.9 (2-11) % Eos % (Auto) 1.3 (0-4) % Baso % (Auto) 0.2 (0-2) % Lymph # (Auto) 1.4 (1.2-4.9) X10*3/uL [place] # (Auto) 0.5 (0.1-1.2) X10*3/uL Eos # (Auto) 0.1 (0.0-0.4) X10*3/uL Baso # (Auto) 0.0 (0.0-0.2) X10*3/uL Abs Immat Gran (auto) 0.04 H (0.00-0.03) X10*3/uL Absolute Neuts (auto) 7.7 (2.0-8.3) x10*3/uL Absolute Nucleated RBC 0.000 (0.0-0.012) X10*3/uL Nucleated RBC % (auto) 0.0 (0.0-0.2) /100WBC PT 12.7 (10.0-13.1) SEC INR 1.1 (0.9-1.1) Sodium 140 (135-145) mmol/L Potassium 4.6 (3.3-5.1) mmol/L Chloride 108 (96-108) mmol/L Carbon Dioxide 19 L (22-29) mmol/L Anion Gap 18 (12-20) BUN 28 H (9-16) mg/dL Creatinine 1.58 H (0.5-1.4) mg/dL Estim Creat Clear Calc 38.5 Estimated GFR 42 Random Glucose 123 H (60-115) mg/dL Calcium 9.6 (8.4-10.2) mg/dL Total Bilirubin 0.9 (0.0-1.0) mg/dL Direct Bilirubin 0.4 (0.0-0.5) mg/dL AST 21 (5-37) U/L ALT 14 (0-40) U/L Alkaline Phosphatase 65 (39-117) U/L Total Creatine Kinase 123 (38-174) U/L Total Protein 6.8 (6.5-8.0) g/dL Albumin 4.0 (3.5-5.0) g/dL Independent Interpretation I performed an independent interpretation of an: Plain X-Ray Radiology Impression Discussion of test interpretation with radiology: I have reviewed the radiologist's reading. Radiologist Impression: FINDINGS: There is a mildly displaced intertrochanteric fracture of the right femur. Alignment across the hips appears anatomic with severe degenerative change including joint space narrowing and spurring. Sacroiliac joints and pubic symphysis are intact. There are extensive vascular calcifications.? XR/XR hip RT min 2V IMPRESSION: Mildly displaced intertrochanteric fracture of the right femur. Critical Care Time Critical Care Time Critical Care Time: Yes Total Critical Care Time: 60 Attestation: I have personally provided critical care time. Time includes review of lab data, radiology results, discussion with consultants, and monitoring for potential decompensation. Intervention performed as documented. Discharge Plan Discharge Clinical Impression: Closed intertrochanteric fracture of right femur, ORION (acute kidney injury) Patient Disposition: Admitted As Inpatient
[2022-08-22 03:46] LABS: INTERNATIONAL NORM RATIO 1.1 (0.9-1.1); Prothrombin Time 12.7 SEC (10.0-13.1)
[2022-08-22 04:01] LABS: Alanine Aminotransferase 14 U/L (0-40); Alkaline Phosphatase 65 U/L (39-117); Anion Gap 18 (12-20); Aspartate Amino Transferase 21 U/L (5-37); Bilirubin Direct 0.4 mg/dL (0.0-0.5); Bilirubin Total 0.9 mg/dL (0.0-1.0); Blood Urea Nitrogen 28 mg/dL (9-16); Calcium 9.6 mg/dL (8.4-10.2); Carbon Dioxide 19 mmol/L (22-29); Chloride 108 mmol/L (96-108); Creatinine Clr Calc Pharmacy 38.5; Estimated Glomerular Filt Rate 42; Glucose Random 123 mg/dL (60-115); Potassium 4.6 mmol/L (3.3-5.1); Sodium 140 mmol/L (135-145); Total Protein 6.8 g/dL (6.5-8.0)
[2022-08-22 05:09] VITALS: BP 145/56; PULSE 66; RESP 17; O2SAT 99
[2022-08-22] MEDS: ondansetron HCL 4 MG/2 ML VIAL IVPUSH ×2 (05:10→07:44)
[2022-08-22] MEDS: 0.9 % Sodium Chloride 1,000 ML 999 ML IVCONT (05:10)
[2022-08-22] MEDS: Morphine Sulfate 4 MG/ML CARTRIDGE IVPUSH ×4 (05:10→18:02)
--- NOTE | 2022-08-22 06:34 | PM.IMHP ---
History of Present Illness Date of Service: 08/22/22 Chief Complaint: Fall 87-year-old male past medical history of hyperlipidemia, HTN, diabetes comes into the hospital after slipping and falling. Patient reports that he was awake, alert, when walking around his house, he slipped and fell. Denies any loss of consciousness, no PE trauma or postictal symptoms. Had significant right-sided pain after falling on the right side. Including get up. Called EMS. Now found to have mildly displaced intertrochanteric fracture of the right femur. Patient now denies any chest pain, no shortness of breath, no abdominal pain nausea vomiting, no diarrhea constipation, no urinary symptoms and no lower extremity edema. On arrival to the ED patient hemodynamically stable no significant abnormal vitals Labs are significant for WBC count of 9.8, hemoglobin 12.1, hematocrit 34.6, creatinine of 1.58, BUN of 28, creatinine of baseline around 1.4, labs otherwise unremarkable, Chest x-ray negative Review of Systems Review of Systems: Yes all other systems are reviewed and are negative [facility] Medical History Diabetes Glaucoma Hyperlipidemia Hypertension Social History Alcohol intake: current Alcohol intake frequency: a few times a week Alcohol type: wine and hard liquor Advance Directives: No Advance Directives Information Provided: No Meds Allergies Allergy/AdvReac Type Severity Reaction Status Date / Time No Known Allergies Allergy Verified 08/22/22 02:38 Physical Exam Vital Signs and Narrative: Vital Signs: Last Vital Signs Temp 97.8 F 08/22/22 02:39 Pulse 66 08/22/22 05:09 Resp 17 08/22/22 05:09 BP 145/56 H 08/22/22 05:09 Pulse Ox 99 08/22/22 05:09 O2 Del Method Room Air 08/22/22 05:09 BMI result Body Mass Index 30.7 Const: General: cooperative and no acute distress Orientation/consciousness: patient oriented x3 Eyes: General: appearance normal, both eyes and all related structures Pupils: Equal, round and reactive pupils present Resp: Effort & Inspection: normal respiratory effort Auscultation: clear to auscultation bilaterally Cardio: Rate: regular rate Rhythm: regular rhythm GI: Palpation (GI): Soft to palpation Auscultation: normal bowel sounds Skin: General skin exam: no rashes or lesions noted Neuro: General: patient oriented x3 Cranial nerves: Yes Equal, round and reactive pupils present Cognition (Neuro): normal cognition Extrem: Other: Right lower extremity externally rotated General: Yes normal to inspection and Yes no pedal edema Results Labs 08/22/22 03:36 08/22/22 03:36 Labs: Laboratory Results - last 24 hr 08/22/22 08/22/22 08/22/22 03:36 03:36 03:36 MCV 95.1 MCH 33.2 H MCHC 35.0 RDW 13.3 Plt Count 130 L MPV 9.4 Immature Gran % (Auto) 0.4 Neut % (Auto) 79.0 H Lymph % (Auto) 14.2 L [place] % (Auto) 4.9 Eos % (Auto) 1.3 Baso % (Auto) 0.2 Lymph # (Auto) 1.4 [place] # (Auto) 0.5 Eos # (Auto) 0.1 Baso # (Auto) 0.0 Abs Immat Gran (auto) 0.04 H Absolute Neuts (auto) 7.7 Absolute Nucleated RBC 0.000 Nucleated RBC % (auto) 0.0 PT 12.7 INR 1.1 Anion Gap 18 Estim Creat Clear Calc 38.5 Estimated GFR 42 Random Glucose 123 H Calcium 9.6 Total Bilirubin 0.9 Direct Bilirubin 0.4 AST 21 ALT 14 Alkaline Phosphatase 65 Total Creatine Kinase 123 Total Protein 6.8 Albumin 4.0 Imaging Radiologist's Impressions: Impressions Hip X-Ray 08/22/22 04:05 IMPRESSION: Mildly displaced intertrochanteric fracture of the right femur. Chest X-Ray 08/22/22 04:15 IMPRESSION: No acute cardiopulmonary findings. Assessment and Plan (1) Closed intertrochanteric fracture of right femur: Status: Acute (2) ORION (acute kidney injury): Status: Acute Plan 87-year-old male with past medical history of hypertension, diabetes, hyperlipidemia comes into the hospital after falling found to have right intertrochanteric femur fracture # acute femur fracture right - secondary to mechanical fall - will make NPO, orthopedic surgery consulted - pain management # ORION - likely secondary to dehydration - will treat with IV fluids, , normal CPK - follow BMP # HTN - stable - continue home antihypertensives # diabetes - will place on low-dose sliding scale insulin - diabetic diet # hyperlipidemia - continue statin DVT prophylaxis: SCDs Given patient's need for surgical intervention patient require minimum 2 nights inpatient hospital stay for further management and monitoring Time Spent With Patient Time: Total time managing care of this patient today ____ minutes. Quality Stroke Does the patient have a stroke diagnosis?: No VTE Prior VTE?: No VTE Risk Level:: Surgical - very high VTE Device Contraindication: N/A - Device Ordered VTE Drug Contraindication: Treatment Not Indicated
[2022-08-22 07:19] VITALS: BP 134/61; PULSE 70; RESP 18; O2SAT 99
--- NOTE | 2022-08-22 07:39 | PM.HPOR ---
History of Present Illness History of Present Illness Date of Service: 08/22/22 Chief complaint: Hip Fracture Narrative: Ryan Magallon is a 87 year old male who was at home, [facility], he sustained a mechanical fall while at home and landed on his right hip. he felt immediate pain and was unable to ambulate. He presented to the ED via EMS where x-rays were obtained and he was found to have a right intertrochanteric hip fracture. The patient was admitted to the medicine service with orthopedic consult for further evaluation and treatment. PMH: DM, HLD, HTN Review of Systems Review of Systems: Yes all other systems are reviewed and are negative PMFSH Past Medical History Medical History Diabetes Glaucoma Hyperlipidemia Hypertension Social History Social History Alcohol intake: current Alcohol intake frequency: a few times a week Alcohol type: wine and hard liquor Advance Directives: No Advance Directives Information Provided: No Meds Allergies Allergy/AdvReac Type Severity Reaction Status Date / Time No Known Allergies Allergy Verified 08/22/22 02:38 Active Medications: Current Medications Acetaminophen (Acetaminophen 325 Mg Tablet) 650 mg PO Q6H PRN PRN Reason: Pain, Mild (Pain Scale 1-3) Dextrose (Dextrose 50 % 25 Gm/50 Ml Syringe) 25 gm IVPUSH Q15M PRN; Protocol PRN Reason: per Hypoglycemia Standing Ord. Glucose (Glucose Gel 15 Gm Gel..Gram.) 15 gm PO Q15M PRN; Protocol PRN Reason: per Hypoglycemia Standing Ord. Lactated Ringer's (Lr) 1,000 mls @ 100 mls/hr IVCONT .Q10H AISHA Insulin Human Lispro (Insulin Lispro 100 Unit/Ml 3 Ml Vial) 0 unit SUBCUT QIDACHS AISHA; Protocol Morphine Sulfate (Morphine Sulfate 4 Mg/Ml Cartridge) 4 mg IVPUSH Q4H PRN; Protocol PRN Reason: Pain, Severe (Pain Scale 7-10) Ondansetron HCl (Ondansetron Hcl 4 Mg/2 Ml Vial) 4 mg IVPUSH Q8H PRN PRN Reason: Nausea and Vomiting Oxycodone HCl (Oxycodone Hcl Immed Release 5 Mg Tablet) 5 mg PO Q6H PRN PRN Reason: Pain, Severe (Pain Scale 7-10) Sodium Chloride (0.9 % Sodium Chloride Flush 3 Ml Syringe) 3 ml IVFLUSH QSHIFT AISHA Physical Exam Vital Signs: Vital Signs: Last Vital Signs Temp 97.8 F 08/22/22 02:39 Pulse 70 08/22/22 07:19 Resp 18 08/22/22 07:19 BP 134/61 08/22/22 07:19 Pulse Ox 99 08/22/22 07:19 O2 Del Method Room Air 08/22/22 07:19 BMI result Body Mass Index 30.7 Const: General: cooperative, healthy appearing and no acute distress Resp: Effort & Inspection: normal respiratory effort and able to speak in complete sentences Cardio: Rate: regular rate Peripheral pulses: Peripheral pulses 2+ throughout GI: Palpation (GI): Soft to palpation Skin: Lesions: no lesions Rashes: no rashes Extrem: Other: Right lower extremity is shortened and externally rotated. Able to dorsi/plantar flex. Sensation intact. Pedal pulse intact. Results Labs 08/22/22 03:36 08/22/22 03:36 Labs: Abnormal lab results 08/22/22 08/22/22 Range/Units 03:36 03:36 RBC 3.64 L (4.60-5.80) X10*6/uL Hgb 12.1 L (14.0-18.0) g/dl Hct 34.6 L (42.0-52.0) % MCH 33.2 H (27.0-33.0) pg Plt Count 130 L (160-400) X10*3/uL Neut % (Auto) 79.0 H (45-73) % Lymph % (Auto) 14.2 L (20-40) % Abs Immat Gran (auto) 0.04 H (0.00-0.03) X10*3/uL Carbon Dioxide 19 L (22-29) mmol/L BUN 28 H (9-16) mg/dL Creatinine 1.58 H (0.5-1.4) mg/dL Random Glucose 123 H (60-115) mg/dL H & H 08/22/22 Range/Units 03:36 Hgb 12.1 L (14.0-18.0) g/dl Hct 34.6 L (42.0-52.0) % Coagulation 08/22/22 Range/Units 03:36 INR 1.1 (0.9-1.1) All other labs normal. Assessment and Plan (1) Closed intertrochanteric fracture of right femur: Status: Acute I discussed the case with Dr. Victoria and explained the extent of the injury to the patient and options available which include surgical intervention. I explained the procedure in detail along with the length of recovery and rehab course. I explained the risk, benefits and alternatives. Risk including, but not limited to infection, blood clots, bleeding, non union or malunion and nerve/tissue damage to surrounding areas. I answered all their questions and with their understanding they have consented to move forward with Operative Fixation of the right hip. The patient will be T&S, med clearance obtained and NPO after midnight. Time Spent With Patient Time: Total time managing care of this patient today ____ minutes. Quality Stroke Does the patient have a stroke diagnosis?: No VTE Prior VTE?: No VTE Risk Level:: Surgical - very high VTE Device Contraindication: N/A - Device Ordered VTE Drug Contraindication: Treatment Not Indicated Procedures Date of Service Date of Service: 08/22/22
[2022-08-22] MEDS: Lactated Ringers 1,000 ML 100 ML IVCONT ×2 (07:41→17:56)
--- NOTE | 2022-08-22 09:05 | PHA.MEDREC ---
Pharmacy Consult ? Medication Reconciliation Pharmacy has completed the medication reconciliation. Spoke with patient. Confirmed his medications including insulin.
--- NOTE | 2022-08-22 09:08 | PC.NURSE ---
pt resting comfortably in bed, call cardenas within reach. LR running at this time.
[2022-08-22 11:45] VITALS: BP 133/51; PULSE 65; RESP 18; TEMP 36.7; O2SAT 98
--- NOTE | 2022-08-22 12:24 | PC.NURSE ---
pt continues to offer no complaints, resting quietly in room. PRN for pain given. call cardenas within reach
--- NOTE | 2022-08-22 15:29 | HO.PM.IMPN ---
Subjective Subjective Date of Service: 08/22/22 Review of Systems Follow up fall, hip fracture pain with movement alert and oriented Physical Exam Vital Signs: Vital Signs: Last Vital Signs Temp 98.1 F 08/22/22 11:45 Pulse 65 08/22/22 11:45 Resp 18 08/22/22 11:45 BP 133/51 L 08/22/22 11:45 Pulse Ox 98 08/22/22 11:45 O2 Del Method Room Air 08/22/22 11:45 BMI result Body Mass Index 30.7 Appearing in no acute distress lung sounds are clear to auscultation heart regular rate rhythm, clear S1, S2 positive bowel sounds, abdomen is soft, nontender neuro patient is alert x3, no focal deficits Objective Data Active Medications Acetaminophen (Acetaminophen 325 Mg Tablet) 650 mg PO Q6H PRN PRN Reason: Pain, Mild (Pain Scale 1-3) Dextrose (Dextrose 50 % 25 Gm/50 Ml Syringe) 25 gm IVPUSH Q15M PRN; Protocol PRN Reason: per Hypoglycemia Standing Ord. Glucose (Glucose Gel 15 Gm Gel..Gram.) 15 gm PO Q15M PRN; Protocol PRN Reason: per Hypoglycemia Standing Ord. Lactated Ringer's (Lr) 1,000 mls @ 100 mls/hr IVCONT .Q10H [facility] Last Admin: 08/22/22 07:41 Dose: 100 mls/hr Documented By: FELICIA Insulin Human Lispro (Insulin Lispro 100 Unit/Ml 3 Ml Vial) 0 unit SUBCUT QIDACHS [facility]; Protocol Last Admin: 08/22/22 12:19 Dose: Not Given Documented By: FELICIA Non-Admin Reason: NPO Morphine Sulfate (Morphine Sulfate 4 Mg/Ml Cartridge) 4 mg IVPUSH Q4H PRN; Protocol PRN Reason: Pain, Severe (Pain Scale 7-10) Last Admin: 08/22/22 12:23 Dose: 4 mg Documented By: FELICIA Ondansetron HCl (Ondansetron Hcl 4 Mg/2 Ml Vial) 4 mg IVPUSH Q8H PRN PRN Reason: Nausea and Vomiting Last Admin: 08/22/22 07:44 Dose: 4 mg Documented By: FELICIA Oxycodone HCl (Oxycodone Hcl Immed Release 5 Mg Tablet) 5 mg PO Q6H PRN PRN Reason: Pain, Severe (Pain Scale 7-10) Sodium Chloride (0.9 % Sodium Chloride Flush 3 Ml Syringe) 3 ml IVFLUSH QSHIFT AISHA Last Admin: 08/22/22 07:39 Dose: Not Given Documented By: FELICIA Non-Admin Reason: IV Running Labs 08/22/22 03:36 08/22/22 03:36 Labs: Laboratory Results - last 24 hr 08/22/22 08/22/22 08/22/22 03:36 03:36 03:36 MCV 95.1 MCH 33.2 H MCHC 35.0 RDW 13.3 Plt Count 130 L MPV 9.4 Immature Gran % (Auto) 0.4 Neut % (Auto) 79.0 H Lymph % (Auto) 14.2 L [place] % (Auto) 4.9 Eos % (Auto) 1.3 Baso % (Auto) 0.2 Lymph # (Auto) 1.4 [place] # (Auto) 0.5 Eos # (Auto) 0.1 Baso # (Auto) 0.0 Abs Immat Gran (auto) 0.04 H Absolute Neuts (auto) 7.7 Absolute Nucleated RBC 0.000 Nucleated RBC % (auto) 0.0 PT 12.7 INR 1.1 Anion Gap 18 Estim Creat Clear Calc 38.5 Estimated GFR 42 Random Glucose 123 H Calcium 9.6 Total Bilirubin 0.9 Direct Bilirubin 0.4 AST 21 ALT 14 Alkaline Phosphatase 65 Total Creatine Kinase 123 Total Protein 6.8 Albumin 4.0 Assessment and Plan (1) Closed intertrochanteric fracture of right femur: Status: Acute Plan 87-year-old male with past medical history of hypertension, diabetes, hyperlipidemia comes into the hospital after falling found to have right intertrochanteric? femur fracture Acute right femur fracture secondary to mechanical fall seen evaluated by Orthopedic surgery, plan for surgical correction tomorrow NPO after midnight Pain management ORION on CKD 3 likely secondary to dehydration IV fluids, normal CPK follow BMP HTN stable continue home antihypertensives diabetes ss, ada diet hyperlipidemia continue statin DVT prophylaxis: SCDs Attending Dr. Lamas continue hospitalization for surgical intervention tomorrow of femur fracture Time Spent With Patient Time: Total time managing care of this patient today ____ minutes. Quality Stroke Does the patient have a stroke diagnosis?: No VTE Prior VTE?: No VTE Risk Level:: Surgical - very high VTE Device Contraindication: N/A - Device Ordered VTE Drug Contraindication: Treatment Not Indicated
[2022-08-22 16:00] VITALS: BP 150/60; PULSE 62; RESP 18; TEMP 36; O2SAT 97
[2022-08-22 20:00] VITALS: BP 121/56; PULSE 71; RESP 20; TEMP 36.2; O2SAT 99
[2022-08-22] MEDS: Insulin Lispro 100 UNIT/ML 3 ML VIAL SUBCUT (21:14)
[2022-08-22] MEDS: Latanoprost 0.005 % Ophth Sol 2.5 ML DROPS 1 DROP EYE-BOTH (21:14)
[2022-08-23] VITALS (16 sets, daily range): BP systolic 113–155; BP diastolic 40–90; PULSE 73–83; RESP 12–20; TEMP 36.4–37.4; O2SAT 94–100
[2022-08-23] MEDS: Lactated Ringers 1,000 ML 100 ML IVCONT ×2 (02:36→13:23)
[2022-08-23 06:34] LABS: Basophils Percent Auto 0.3 % (0-2); Eosinophils Absolute Auto 0.2 X10*3/uL (0.0-0.4); Eosinophils Percent Auto 2.2 % (0-4); Hematocrit 24.7 % (42.0-52.0); Hemoglobin 8.6 g/dl (14.0-18.0); Imm Gran Abs Auto 0.03 X10*3/uL (0.00-0.03); Imm Gran Pct Auto 0.4 % (0.0-0.4); Lymphocytes Absolute Auto 1.2 X10*3/uL (1.2-4.9); Lymphocytes Percent Auto 16.1 % (20-40); MANUAL DIFF FLAG NO; Mean Corpuscular HGB Conc 34.8 g/dl (31.0-36.0); Mean Corpuscular Hemoglobin 34.3 pg (27.0-33.0); Mean Corpuscular Volume 98.4 fL (80.0-98.0); Mean Platelet Volume 10.2 fL (9.4-12.4); Monocytes Absolute Auto 0.6 X10*3/uL (0.1-1.2); Monocytes Percent Auto 7.8 % (2-11); Neutrophils Absolute Auto 5.2 x10*3/uL (2.0-8.3); Neutrophils Percent Auto 73.2 % (45-73); Platelet Count 113 X10*3/uL (160-400); Red Blood Count 2.51 X10*6/uL (4.60-5.80); Red Cell Distribution Width 13.7 % (11.0-16.0); White Blood Count 7.2 X10*3/uL (4.8-10.8)
[2022-08-23 06:53] LABS: Anion Gap 11 (12-20); Blood Urea Nitrogen 25 mg/dL (9-16); Calcium 8.5 mg/dL (8.4-10.2); Carbon Dioxide 24 mmol/L (22-29); Chloride 109 mmol/L (96-108); Creatinine Clr Calc Pharmacy 41.6; Estimated Glomerular Filt Rate 46; Glucose Random 218 mg/dL (60-115); Potassium 4.7 mmol/L (3.3-5.1); Sodium 139 mmol/L (135-145)
[2022-08-23] MEDS: Losartan Potassium 25 MG TABLET PO (07:59)
[2022-08-23] MEDS: Morphine Sulfate 4 MG/ML CARTRIDGE IVPUSH ×2 (07:59→13:28)
[2022-08-23] MEDS: Atorvastatin Calcium 20 MG TABLET PO (07:59)
[2022-08-23] MEDS: Tamsulosin HCL 0.4 MG CAPSULE PO (07:59)
[2022-08-23] MEDS: buPROPion HCl XL 300 MG TAB.ER.24H PO (07:59)
[2022-08-23 08:04] LABS: Iron 44 mcg/dL (45-160); Percent Iron Saturation 21 % (15-50); Total Iron Binding Capacity 213 mcg/dL (228-428); Unsaturated Iron Binding 169 ug/dL
[2022-08-23] MEDS: Insulin Lispro 100 UNIT/ML 3 ML VIAL SUBCUT (08:23)
[2022-08-23] MEDS: Latanoprost 0.005 % Ophth Sol 2.5 ML DROPS 1 DROP EYE-BOTH ×2 (08:25→23:05)
--- NOTE | 2022-08-23 12:29 | P.PNIM_ITS ---
Subjective Subjective Date of Service: 08/23/22 Review of Systems Follow up fall, hip fracture pain with movement alert and oriented plan for OR today Physical Exam Vital Signs: Vital Signs: Last Vital Signs Temp 99 F 08/23/22 07:08 Pulse 80 08/23/22 07:08 Resp 20 08/23/22 07:08 BP 155/67 H 08/23/22 07:08 Pulse Ox 94 08/23/22 07:08 O2 Del Method Room Air 08/23/22 07:08 BMI result Body Mass Index 30.7 Appearing in no acute distress lung sounds are clear to auscultation heart regular rate rhythm, clear S1, S2 positive bowel sounds, abdomen is soft, nontender neuro patient is alert x3, no focal deficits Objective Data Active Medications Acetaminophen (Acetaminophen 325 Mg Tablet) 650 mg PO Q6H PRN PRN Reason: Pain, Mild (Pain Scale 1-3) Atorvastatin Calcium (Atorvastatin Calcium 20 Mg Tablet) 20 mg PO DAILY [facility] Last Admin: 08/23/22 07:59 Dose: 20 mg Documented By: SUSHILA Bupropion HCl (Bupropion Hcl Xl 300 Mg Tab.Er.24h) 300 mg PO DAILY [facility] Last Admin: 08/23/22 07:59 Dose: 300 mg Documented By: SUSHILA Dextrose (Dextrose 50 % 25 Gm/50 Ml Syringe) 25 gm IVPUSH Q15M PRN; Protocol PRN Reason: per Hypoglycemia Standing Ord. Dorzolamide/Timolol (Dorzolamide/Timolo 2.23%/0.68% 10 Ml Drbtl) 1 drop EYE- BOTH BID [facility] Last Admin: 08/23/22 09:01 Dose: Not Given Documented By: SUSHILA Non-Admin Reason: Patient Refused Glucose (Glucose Gel 15 Gm Gel..Gram.) 15 gm PO Q15M PRN; Protocol PRN Reason: per Hypoglycemia Standing Ord. Lactated Ringer's (Lr) 1,000 mls @ 100 mls/hr IVCONT .Q10H [facility] Last Admin: 08/23/22 02:36 Dose: 100 mls/hr Documented By: MILY Insulin Glargine (Insulin Glargine,Hum.Rec.Anlog 100 Unit/Ml 10 Ml Vial) 14 unit SUBCUT DAILY [facility] Last Admin: 08/23/22 08:26 Dose: Not Given Documented By: SUSHILA Non-Admin Reason: NPO Insulin Human Lispro (Insulin Lispro 100 Unit/Ml 3 Ml Vial) 0 unit SUBCUT QIDACHS [facility]; Protocol Last Admin: 08/23/22 11:49 Dose: Not Given Documented By: SUSHILA Non-Admin Reason: NPO Latanoprost (Latanoprost 0.005 % Ophth Lauryn 2.5 Ml Drops) 1 drop EYE-BOTH BID [facility] Last Admin: 08/23/22 08:25 Dose: 1 drop Documented By: SUSHILA Losartan Potassium (Losartan Potassium 25 Mg Tablet) 25 mg PO DAILY [facility]; Protocol Last Admin: 08/23/22 07:59 Dose: 25 mg Documented By: SUSHILA Morphine Sulfate (Morphine Sulfate 4 Mg/Ml Cartridge) 4 mg IVPUSH Q4H PRN; Protocol PRN Reason: Pain, Severe (Pain Scale 7-10) Last Admin: 08/23/22 07:59 Dose: 4 mg Documented By: SUSHILA Non-Formulary Medication (Brimonidine [Alphagan P]) 1 drop EYE-BOTH BEDTIME [facility] Non-Formulary Medication (Dulaglutide [Trulicity]) 3 mg SUBCUT QWEEK [facility] Non-Formulary Medication (Netarsudil [Rhopressa]) 1 drop EYE-BOTH BEDTIME [facility] Non-Formulary Medication (Ramelteon) 8 mg PO BEDTIME [facility] Ondansetron HCl (Ondansetron Hcl 4 Mg/2 Ml Vial) 4 mg IVPUSH Q8H PRN PRN Reason: Nausea and Vomiting Last Admin: 08/22/22 07:44 Dose: 4 mg Documented By: FELICIA Oxycodone HCl (Oxycodone Hcl Immed Release 5 Mg Tablet) 5 mg PO Q6H PRN PRN Reason: Pain, Severe (Pain Scale 7-10) Sodium Chloride (0.9 % Sodium Chloride Flush 3 Ml Syringe) 3 ml IVFLUSH QSHIFT [facility] Last Admin: 08/23/22 07:51 Dose: Not Given Documented By: SUSHILA Non-Admin Reason: IV Running Tamsulosin HCl (Tamsulosin Hcl 0.4 Mg Capsule) 0.4 mg PO DAILY [facility] Last Admin: 08/23/22 07:59 Dose: 0.4 mg Documented By: SUSHILA Labs 08/23/22 05:51 08/23/22 05:51 Labs: Laboratory Results - last 24 hr 08/22/22 08/23/22 08/23/22 17:27 05:51 05:51 MCV 98.4 H MCH 34.3 H MCHC 34.8 RDW 13.7 Plt Count 113 L MPV 10.2 Immature Gran % (Auto) 0.4 Neut % (Auto) 73.2 H Lymph % (Auto) 16.1 L [place] % (Auto) 7.8 Eos % (Auto) 2.2 Baso % (Auto) 0.3 Lymph # (Auto) 1.2 [place] # (Auto) 0.6 Eos # (Auto) 0.2 Baso # (Auto) 0.0 Abs Immat Gran (auto) 0.03 Absolute Neuts (auto) 5.2 Absolute Nucleated RBC 0.000 Nucleated RBC % (auto) 0.0 Anion Gap 11 L Estim Creat Clear Calc 41.6 Estimated GFR 46 Random Glucose 218 H Calcium 8.5 D Iron 44 L TIBC 213 L % Saturation 21 Unsat Iron Binding 169 Blood Type B Positive Antibody Screen NEGATIVE Assessment and Plan (1) Closed intertrochanteric fracture of right femur: Status: Acute Plan 87-year-old male with past medical history of hypertension, diabetes, hyperlipidemia comes into the hospital after falling found to have right intertrochanteric? femur fracture Acute right femur fracture secondary to mechanical fall Down to OR today for surgical correction PT eval post op post op pain management ORION on CKD 3. trending down likely secondary to dehydration IV fluids, normal CPK follow BMP Acute on chronic non blood loss anemia Iron 44/TIBC 213 some component of chronic anemia and dilution monitor HH closely post op HTN stable continue home antihypertensives diabetes ss, ada diet hyperlipidemia continue statin DVT prophylaxis: SCDs Attending Dr. Lamas continue hospitalization for surgical intervention tomorrow of femur fracture Time Spent With Patient Time: Total time managing care of this patient today ____ minutes. Quality Stroke Does the patient have a stroke diagnosis?: No VTE Prior VTE?: No VTE Risk Level:: Surgical - very high VTE Device Contraindication: N/A - Device Ordered VTE Drug Contraindication: Treatment Not Indicated
--- NOTE | 2022-08-23 13:37 | P.CONAN_ITS ---
HPI - Anesthesia Eval Consult details Narrative: Orif intertrochanteric fx PMFSH Active Problems Active Problems: All Active Problems (Updated 08/22/22 @ 05:58 by Zoraida Crespo MD) Closed intertrochanteric fracture of right femur (Acute) ORION (acute kidney injury) (Acute) Past Medical History Medical History Diabetes Glaucoma Hyperlipidemia Hypertension Family History Family history of problems with anesthesia: No Surgical History History of Problems with Anesthesia: No Social History Social History Housing: Assisted Living Facility Do you presently have visiting nurse or other home services: No Alcohol intake: current Alcohol intake frequency: a few times a week Alcohol type: wine and hard liquor Patient Tobacco Use Status: Never used Tobacco Meds Allergies Allergy/AdvReac Type Severity Reaction Status Date / Time No Known Allergies Allergy Verified 08/22/22 02:38 Active Medications: Current Medications Acetaminophen (Acetaminophen 325 Mg Tablet) 650 mg PO Q6H PRN PRN Reason: Pain, Mild (Pain Scale 1-3) Atorvastatin Calcium (Atorvastatin Calcium 20 Mg Tablet) 20 mg PO DAILY [facility] Last Admin: 08/23/22 07:59 Dose: 20 mg Bupropion HCl (Bupropion Hcl Xl 300 Mg Tab.Er.24h) 300 mg PO DAILY [facility] Last Admin: 08/23/22 07:59 Dose: 300 mg Dextrose (Dextrose 50 % 25 Gm/50 Ml Syringe) 25 gm IVPUSH Q15M PRN; Protocol PRN Reason: per Hypoglycemia Standing Ord. Dorzolamide/Timolol (Dorzolamide/Timolo 2.23%/0.68% 10 Ml Drbtl) 1 drop EYE- BOTH BID [facility] Last Admin: 08/23/22 09:01 Dose: Not Given Glucose (Glucose Gel 15 Gm Gel..Gram.) 15 gm PO Q15M PRN; Protocol PRN Reason: per Hypoglycemia Standing Ord. Lactated Ringer's (Lr) 1,000 mls @ 100 mls/hr IVCONT .Q10H [facility] Last Admin: 08/23/22 13:23 Dose: 100 mls/hr Insulin Glargine (Insulin Glargine,Hum.Rec.Anlog 100 Unit/Ml 10 Ml Vial) 14 unit SUBCUT DAILY [facility] Last Admin: 08/23/22 08:26 Dose: Not Given Insulin Human Lispro (Insulin Lispro 100 Unit/Ml 3 Ml Vial) 0 unit SUBCUT QIDACHS [facility]; Protocol Last Admin: 08/23/22 11:49 Dose: Not Given Latanoprost (Latanoprost 0.005 % Ophth Lauryn 2.5 Ml Drops) 1 drop EYE-BOTH BID [facility] Last Admin: 08/23/22 08:25 Dose: 1 drop Losartan Potassium (Losartan Potassium 25 Mg Tablet) 25 mg PO DAILY [facility]; Protocol Last Admin: 08/23/22 07:59 Dose: 25 mg Morphine Sulfate (Morphine Sulfate 4 Mg/Ml Cartridge) 4 mg IVPUSH Q4H PRN; Protocol PRN Reason: Pain, Severe (Pain Scale 7-10) Last Admin: 08/23/22 13:28 Dose: 4 mg Non-Formulary Medication (Brimonidine [Alphagan P]) 1 drop EYE-BOTH BEDTIME [facility] Non-Formulary Medication (Dulaglutide [Trulicity]) 3 mg SUBCUT QWEEK [facility] Non-Formulary Medication (Netarsudil [Rhopressa]) 1 drop EYE-BOTH BEDTIME [facility] Non-Formulary Medication (Ramelteon) 8 mg PO BEDTIME [facility] Ondansetron HCl (Ondansetron Hcl 4 Mg/2 Ml Vial) 4 mg IVPUSH Q8H PRN PRN Reason: Nausea and Vomiting Last Admin: 08/22/22 07:44 Dose: 4 mg Oxycodone HCl (Oxycodone Hcl Immed Release 5 Mg Tablet) 5 mg PO Q6H PRN PRN Reason: Pain, Severe (Pain Scale 7-10) Sodium Chloride (0.9 % Sodium Chloride Flush 3 Ml Syringe) 3 ml IVFLUSH QSHIFT [facility] Last Admin: 08/23/22 07:51 Dose: Not Given Tamsulosin HCl (Tamsulosin Hcl 0.4 Mg Capsule) 0.4 mg PO DAILY [facility] Last Admin: 08/23/22 07:59 Dose: 0.4 mg Home Medications Medication Instructions Recorded Confirmed Last Taken Type atorvastatin 20 mg tablet 20 mg PO DAILY 08/22/22 08/22/22 Unknown History brimonidine 0.1 % eye drops 1 drp ophthalmic (eye) BEDTIME 08/22/22 08/22/22 Unknown History (Alphagan P) bupropion HCl 300 mg 24 hr tablet, 300 mg PO DAILY 08/22/22 08/22/22 Unknown History extended release dorzolamide 22.3 mg-timolol 6.8 1 drp ophthalmic (eye) BID 08/22/22 08/22/22 Unknown History mg/mL eye drops dulaglutide 3 mg/0.5 mL 3 mg subcut QWEEK 08/22/22 08/22/22 08/19/22 History subcutaneous pen injector (Trulicity) insulin degludec 100 unit/mL (3 20 unit subcut DAILY 08/22/22 08/22/22 08/21/22 History mL) subcutaneous pen (Tresiba FlexTouch U-100 insulin) latanoprost 0.005 % eye drops 1 drp ophthalmic (eye) BID 08/22/22 08/22/22 Unknown History losartan 25 mg tablet 25 mg PO DAILY 08/22/22 08/22/22 Unknown History metformin 1,000 mg tablet 1,000 mg PO BID 08/22/22 08/22/22 Unknown History netarsudil 0.02 % eye drops 1 drp ophthalmic (eye) BEDTIME 08/22/22 08/22/22 Unknown History (Rhopressa) ramelteon 8 mg tablet 8 mg PO BEDTIME 08/22/22 08/22/22 Unknown History tamsulosin 0.4 mg capsule 0.4 mg PO DAILY 08/22/22 08/22/22 Unknown History Exam Exam Date and Time: August 23, 2022 1337 Height,Weight and Vital Signs: Height 5 ft 10 in Weight 97.2 kg Last Vital Signs Temp 99 F 08/23/22 07:08 Pulse 80 08/23/22 07:08 Resp 20 08/23/22 07:08 BP 155/67 H 08/23/22 07:08 Pulse Ox 94 08/23/22 07:08 O2 Del Method Room Air 08/23/22 07:08 Pertinent Lab Results Pertinent Lab Results: Laboratory Tests 08/22/22 08/22/22 08/22/22 03:36 03:36 03:36 WBC 9.8 RBC 3.64 L Hgb 12.1 L Hct 34.6 L MCV 95.1 MCH 33.2 H MCHC 35.0 RDW 13.3 Plt Count 130 L MPV 9.4 Immature Gran % (Auto) 0.4 Neut % (Auto) 79.0 H Lymph % (Auto) 14.2 L [place] % (Auto) 4.9 Eos % (Auto) 1.3 Baso % (Auto) 0.2 Lymph # (Auto) 1.4 [place] # (Auto) 0.5 Eos # (Auto) 0.1 Baso # (Auto) 0.0 Abs Immat Gran (auto) 0.04 H Absolute Neuts (auto) 7.7 Absolute Nucleated RBC 0.000 Nucleated RBC % (auto) 0.0 PT 12.7 INR 1.1 Sodium 140 Potassium 4.6 Chloride 108 Carbon Dioxide 19 L Anion Gap 18 BUN 28 H Creatinine 1.58 H Estim Creat Clear Calc 38.5 Estimated GFR 42 Random Glucose 123 H Calcium 9.6 Iron TIBC % Saturation Unsat Iron Binding Total Bilirubin 0.9 Direct Bilirubin 0.4 AST 21 ALT 14 Alkaline Phosphatase 65 Total Creatine Kinase 123 Total Protein 6.8 Albumin 4.0 Blood Type Antibody Screen 08/22/22 08/23/22 08/23/22 17:27 05:51 05:51 WBC 7.2 RBC 2.51 L D Hgb 8.6 L D Hct 24.7 L D MCV 98.4 H MCH 34.3 H MCHC 34.8 RDW 13.7 Plt Count 113 L MPV 10.2 Immature Gran % (Auto) 0.4 Neut % (Auto) 73.2 H Lymph % (Auto) 16.1 L [place] % (Auto) 7.8 Eos % (Auto) 2.2 Baso % (Auto) 0.3 Lymph # (Auto) 1.2 [place] # (Auto) 0.6 Eos # (Auto) 0.2 Baso # (Auto) 0.0 Abs Immat Gran (auto) 0.03 Absolute Neuts (auto) 5.2 Absolute Nucleated RBC 0.000 Nucleated RBC % (auto) 0.0 PT INR Sodium 139 Potassium 4.7 Chloride 109 H Carbon Dioxide 24 Anion Gap 11 L BUN 25 H Creatinine 1.46 H Estim Creat Clear Calc 41.6 Estimated GFR 46 Random Glucose 218 H Calcium 8.5 D Iron 44 L TIBC 213 L % Saturation 21 Unsat Iron Binding 169 Total Bilirubin Direct Bilirubin AST ALT Alkaline Phosphatase Total Creatine Kinase Total Protein Albumin Blood Type B Positive Antibody Screen NEGATIVE Airway Mallampati Class: II TM Dist: >3cm Neck ROM: Limited Heart: rrr Lungs: cta Assessment and Plan Assessment Anesthesia Assessment: Anesthesia Plan Discussed and Chart Reviewed Final Anesthetic Review Family History of Problems with Anesthesia: No History of Problems with Anesthesia: No ASA Class: III Final Preanesthetic Review: No Changes in Pt Med Stat, Meds/Allgs Chart Reviewed, Consent Obtained/Reviewed and Anes Risks/Benef Reviewed Patient Risk: Intermediate Procedure Risk: Intermediate Anesthetic Plan Anesthetic Plan: GA and Agree w/ Assess. and Plan Disposition: Standard PACU
--- NOTE | 2022-08-23 14:30 | PC.NURSE ---
IV from floor, 22 gauge to left wrist is patent and in place. Second IV placed with 20 gauge to left forearm, unable to document due to duplicity documentation.
--- NOTE | 2022-08-23 14:43 | PC.NURSE ---
Dr. Mayer updated regarding H&H results from the labs drawn on the floor this morning. And also that patient has a temperature of 99.4. Dr. Mayer stated that orders will follow. Patient has T&S to right wrist.
--- NOTE | 2022-08-23 14:56 | MHC.SHP ---
Pre-Procedural Eval Section A Date of Service: 08/23/22 The patient is an INPATIENT: Yes Changes since office visit: No Cold of Flu in the past 2 weeks, No New Medical Problems, No Changes in Medication and No Patient answered all questions The History & Physical has been completed within 30 days and I have reviewed it.: Yes Section B Chief Complaint: Hip Fracture Allergies: Allergies Allergy/AdvReac Type Severity Reaction Status Date / Time No Known Allergies Allergy Verified 08/22/22 02:38 Plan I have reviewed the history and physical and performed a pertinent physical examination on my patient. No changes have occurred unless specified. Time Spent With Patient Time: Total time managing care of this patient today ____ minutes.
--- NOTE | 2022-08-23 15:08 | PC.NURSE ---
18 gauge IV inserted by matt amaya rn
--- NOTE | 2022-08-23 15:35 | PC.NURSE ---
Dr. Mayer ordered for patient to have 2 units RBC. started preop, to finish in OR. Started in [facility], paper to continue in OR.
--- NOTE | 2022-08-23 15:59 | MHC.CM.PN ---
pt not on floor calld and spoke with son pt lives in [facility] if pt requires str son wants to stay within [facility] referral will be made to [facility] pending pt kaitlin
--- NOTE | 2022-08-23 17:01 | P.BOP_ITS ---
Brief Operative Note Date of Service: 08/23/22 Pre-op diagnosis: Right IT fracture Procedure: IMN right hip Implants: Kamila [id number] 125 deg imn with 105 mm hip screw and 50 mm distal interlock Surgeon: Gilbert Victoria MD Anesthesia: GETA and local Was an Evaluation Analyst used for this Procedure?: No Estimated blood loss (mL): 150 IV fluids (mL): 800 Pathology: none sent Condition: stable Disposition: PACU
--- NOTE | 2022-08-23 17:48 | PC.NURSE ---
Mistake in blood end vitals and not allowing to edit. Post blood unit BP 149/40 not 149/90
[2022-08-23] MEDS: Dorzolamide/Timolo 2.23%/0.68% 10 ML DRBTL 1 DROP EYE-BOTH (23:05)
[2022-08-23] MEDS: 0.9 % Sodium Chloride Flush 3 ML SYRINGE IVFLUSH (23:12)
[2022-08-24 00:10] VITALS: BP 128/62; PULSE 89; RESP 18; TEMP 36.8
[2022-08-24 00:33] VITALS: BP 125/55; PULSE 84; RESP 18; TEMP 36.6
[2022-08-24] MEDS: oxyCODONE HCl Immed Release 5 MG TABLET PO ×2 (00:44→11:57)
[2022-08-24 02:55] VITALS: BP 125/57; PULSE 87; RESP 18; TEMP 36.8
[2022-08-24 02:56] VITALS: BP 125/57; PULSE 87; RESP 18; TEMP 36.8
[2022-08-24 06:03] LABS: MANUAL DIFF FLAG NO
[2022-08-24 06:06] LABS: Basophils Percent Auto 0.5 % (0-2); Eosinophils Absolute Auto 0.1 X10*3/uL (0.0-0.4); Eosinophils Percent Auto 1.8 % (0-4); Hematocrit 25.8 % (42.0-52.0); Hemoglobin 8.8 g/dl (14.0-18.0); Imm Gran Abs Auto 0.03 X10*3/uL (0.00-0.03); Imm Gran Pct Auto 0.5 % (0.0-0.4); Lymphocytes Absolute Auto 1.2 X10*3/uL (1.2-4.9); Lymphocytes Percent Auto 19.3 % (20-40); Mean Corpuscular HGB Conc 34.1 g/dl (31.0-36.0); Mean Corpuscular Hemoglobin 33.5 pg (27.0-33.0); Mean Corpuscular Volume 98.1 fL (80.0-98.0); Mean Platelet Volume 9.9 fL (9.4-12.4); Monocytes Absolute Auto 0.5 X10*3/uL (0.1-1.2); Monocytes Percent Auto 8.1 % (2-11); Neutrophils Absolute Auto 4.2 x10*3/uL (2.0-8.3); Neutrophils Percent Auto 69.8 % (45-73); Platelet Count 89 X10*3/uL (160-400); Red Blood Count 2.63 X10*6/uL (4.60-5.80); Red Cell Distribution Width 14.3 % (11.0-16.0); White Blood Count 6.1 X10*3/uL (4.8-10.8)
[2022-08-24 06:20] LABS: Anion Gap 12 (12-20); Blood Urea Nitrogen 21 mg/dL (9-16); Calcium 8.3 mg/dL (8.4-10.2); Carbon Dioxide 24 mmol/L (22-29); Chloride 109 mmol/L (96-108); Creatinine Clr Calc Pharmacy 44.1; Estimated Glomerular Filt Rate 49; Glucose Random 182 mg/dL (60-115); Potassium 4.5 mmol/L (3.3-5.1); Sodium 140 mmol/L (135-145)
--- NOTE | 2022-08-24 07:37 | PM.PNORT ---
Subjective Subjective Date of Service: 08/24/22 Interval history: POD1 s/p right hip IM Nail. No overnight events. Pain is managed. No additional complaints. Physical Exam Vital Signs: Vital Signs: Last Vital Signs Temp 98.2 F 08/24/22 02:56 Pulse 87 08/24/22 02:56 Resp 18 08/24/22 02:56 BP 125/57 L 08/24/22 02:56 Pulse Ox 100 08/23/22 18:45 O2 Del Method Nasal Cannula 08/23/22 18:45 O2 Flow Rate 2 08/23/22 18:45 BMI result Body Mass Index 30.7 Const: General: cooperative, healthy appearing and no acute distress Resp: Effort & Inspection: normal respiratory effort and able to speak in complete sentences Cardio: Rate: regular rate Peripheral pulses: Peripheral pulses 2+ throughout GI: Palpation (GI): Soft to palpation Skin: Lesions: no lesions Rashes: no rashes Extrem: Other: Right hip dressings are c/d/i. Able to dorsi/plantar flex. NVI. Procedures Date of Service Date of Service: 08/24/22 Progress Note: A&P Assessment and plan (1) Closed intertrochanteric fracture of right femur: Status: Acute (2) ORION (acute kidney injury): Status: Acute Plan Continue pain mgmnt Begin Lovenox for dvt ppx begin PT for right hip IM Nail - WBAT Dispo planning-Pending PT eval, pain mgmnt Time Spent With Patient Time: Total time managing care of this patient today ____ minutes. Quality Stroke Does the patient have a stroke diagnosis?: No VTE Prior VTE?: No VTE Risk Level:: Surgical - very high VTE Device Contraindication: N/A - Device Ordered VTE Drug Contraindication: Treatment Not Indicated
[2022-08-24 07:47] VITALS: BP 137/64; PULSE 89; RESP 18; TEMP 36.6; O2SAT 94
[2022-08-24] MEDS: Insulin Glargine,Hum.rec.anlog 100 UNIT/ML 10 ML VIAL 14 UNIT SUBCUT (07:47)
[2022-08-24] MEDS: Morphine Sulfate 4 MG/ML CARTRIDGE IVPUSH ×2 (07:47→17:55)
[2022-08-24] MEDS: Insulin Lispro 100 UNIT/ML 3 ML VIAL SUBCUT ×4 (07:47→21:14)
[2022-08-24] MEDS: Latanoprost 0.005 % Ophth Sol 2.5 ML DROPS 1 DROP EYE-BOTH ×2 (07:48→21:14)
[2022-08-24] MEDS: Losartan Potassium 25 MG TABLET PO (07:48)
[2022-08-24] MEDS: Tamsulosin HCL 0.4 MG CAPSULE PO (07:48)
[2022-08-24] MEDS: Atorvastatin Calcium 20 MG TABLET PO (07:48)
[2022-08-24] MEDS: Dorzolamide/Timolo 2.23%/0.68% 10 ML DRBTL 1 DROP EYE-BOTH ×2 (07:48→21:14)
[2022-08-24] MEDS: buPROPion HCl XL 300 MG TAB.ER.24H PO (07:48)
--- NOTE | 2022-08-24 12:59 | HO.PM.IMPN ---
Subjective Subjective Date of Service: 08/24/22 Interval History: seen and examined this morning follow up for right femur fracture s/p IMN no overnight events no specific complaints this am Review of Systems Review of Systems: Yes all other systems are reviewed and are negative Constitutional Constitutional: Denies chills and Denies fever(s) ENT Ears, Nose, Mouth, and Throat: Denies dizziness Cardiovascular Cardiovascular: Denies chest pain, Denies palpitations and Denies dyspnea Respiratory Respiratory: Denies cough and Denies dyspnea Gastrointestinal Gastrointestinal: Denies abdominal pain Neurologic Neurologic: Denies dizziness Endocrine Endocrine: Denies palpitations Physical Exam Vital Signs: Vital Signs: Last Vital Signs Temp 97.8 F 08/24/22 07:47 Pulse 89 08/24/22 07:47 Resp 18 08/24/22 07:47 BP 137/64 08/24/22 07:47 Pulse Ox 94 08/24/22 07:47 O2 Del Method Room Air 08/24/22 07:47 O2 Flow Rate 2 08/23/22 18:45 BMI result Body Mass Index 30.7 Const: Other: forgetful General: cooperative, comfortable, no acute distress, alert and awake Resp: Effort & Inspection: normal respiratory effort, able to speak in complete sentences, no respiratory distress and no use of accessory muscles Auscultation: clear to auscultation bilaterally Cardio: Rate: regular rate Heart sounds: S1 normal heart sound present and S2 normal heart sound present GI: Inspection: No distended Palpation (GI): Soft to palpation and nontender Neuro: General: moves all extremities and CN's II-XI intact bilaterally Extrem: Other: bandage right hip/leg without staining Objective Data Active Medications Acetaminophen (Acetaminophen 325 Mg Tablet) 650 mg PO Q6H PRN PRN Reason: Pain, Mild (Pain Scale 1-3) Atorvastatin Calcium (Atorvastatin Calcium 20 Mg Tablet) 20 mg PO DAILY [facility] Last Admin: 08/24/22 07:48 Dose: 20 mg Documented By: SUSHILA Bupropion HCl (Bupropion Hcl Xl 300 Mg Tab.Er.24h) 300 mg PO DAILY [facility] Last Admin: 08/24/22 07:48 Dose: 300 mg Documented By: SUSHILA Dextrose (Dextrose 50 % 25 Gm/50 Ml Syringe) 25 gm IVPUSH Q15M PRN; Protocol PRN Reason: per Hypoglycemia Standing Ord. Dorzolamide/Timolol (Dorzolamide/Timolo 2.23%/0.68% 10 Ml Drbtl) 1 drop EYE-BOTH BID [facility] Last Admin: 08/24/22 07:48 Dose: 1 drop Documented By: SUSHILA Enoxaparin Sodium (Enoxaparin Sodium 40 Mg/0.4 Ml Syringe) 40 mg SUBCUT Q24H [facility] Glucose (Glucose Gel 15 Gm Gel..Gram.) 15 gm PO Q15M PRN; Protocol PRN Reason: per Hypoglycemia Standing Ord. Cefazolin Sodium/Dextrose (Ancef) 2 gm in 50 mls @ 100 mls/hr IV POSTOP [facility] Insulin Glargine (Insulin Glargine,Hum.Rec.Anlog 100 Unit/Ml 10 Ml Vial) 14 unit SUBCUT DAILY [facility] Last Admin: 08/24/22 07:47 Dose: 14 unit Documented By: SUSHILA Insulin Human Lispro (Insulin Lispro 100 Unit/Ml 3 Ml Vial) 0 unit SUBCUT QIDACHS [facility]; Protocol Last Admin: 08/24/22 11:58 Dose: 8 unit Documented By: SUSHILA Latanoprost (Latanoprost 0.005 % Ophth Lauryn 2.5 Ml Drops) 1 drop EYE-BOTH BID [facility] Last Admin: 08/24/22 07:48 Dose: 1 drop Documented By: SUSHILA Losartan Potassium (Losartan Potassium 25 Mg Tablet) 25 mg PO DAILY [facility]; Protocol Last Admin: 08/24/22 07:48 Dose: 25 mg Documented By: SUSHILA Morphine Sulfate (Morphine Sulfate 4 Mg/Ml Cartridge) 4 mg IVPUSH Q4H PRN; Protocol PRN Reason: Pain, Severe (Pain Scale 7-10) Last Admin: 08/24/22 07:47 Dose: 4 mg Documented By: SUSHILA Non-Formulary Medication (Brimonidine [Alphagan P]) 1 drop EYE-BOTH BEDTIME [facility] Non-Formulary Medication (Dulaglutide [Trulicity]) 3 mg SUBCUT QWEEK [facility] Non-Formulary Medication (Netarsudil [Rhopressa]) 1 drop EYE-BOTH BEDTIME [facility] Non-Formulary Medication (Ramelteon) 8 mg PO BEDTIME [facility] Ondansetron HCl (Ondansetron Hcl 4 Mg/2 Ml Vial) 4 mg IVPUSH Q8H PRN PRN Reason: Nausea and Vomiting Last Admin: 08/22/22 07:44 Dose: 4 mg Documented By: FELICIA Oxycodone HCl (Oxycodone Hcl Immed Release 5 Mg Tablet) 5 mg PO Q6H PRN PRN Reason: Pain, Severe (Pain Scale 7-10) Last Admin: 08/24/22 11:57 Dose: 5 mg Documented By: SUSHILA Sodium Chloride (0.9 % Sodium Chloride Flush 3 Ml Syringe) 3 ml IVFLUSH QSHIFT [facility] Last Admin: 08/24/22 09:50 Dose: Not Given Documented By: SUSHILA Non-Admin Reason: IV Running Tamsulosin HCl (Tamsulosin Hcl 0.4 Mg Capsule) 0.4 mg PO DAILY [facility] Last Admin: 08/24/22 07:48 Dose: 0.4 mg Documented By: SUSHILA Labs 08/24/22 05:47 08/24/22 05:47 Labs: Laboratory Results - last 24 hr 08/22/22 08/24/22 08/24/22 17:27 05:47 05:47 MCV 98.1 H MCH 33.5 H MCHC 34.1 RDW 14.3 Plt Count 89 L MPV 9.9 Immature Gran % (Auto) 0.5 H Neut % (Auto) 69.8 Lymph % (Auto) 19.3 L [place] % (Auto) 8.1 Eos % (Auto) 1.8 Baso % (Auto) 0.5 Lymph # (Auto) 1.2 [place] # (Auto) 0.5 Eos # (Auto) 0.1 Baso # (Auto) 0.0 Abs Immat Gran (auto) 0.03 Absolute Neuts (auto) 4.2 Absolute Nucleated RBC 0.000 Nucleated RBC % (auto) 0.0 Anion Gap 12 Estim Creat Clear Calc 44.1 Estimated GFR 49 Random Glucose 182 H Calcium 8.3 L Blood Type B Positive Antibody Screen NEGATIVE Crossmatch See Detail Assessment and Plan (1) Closed intertrochanteric fracture of right femur: Status: Acute (2) ORION (acute kidney injury): Status: Acute Plan 87-year-old male with past medical history of hypertension, diabetes, hyperlipidemia comes into the hospital after falling found to have right intertrochanteric? femur fracture Acute right femur fracture secondary to mechanical fall POD #1 s/p IMN PT eval post op post op pain management ORION on CKD 3. seems back to baseline likely secondary to dehydration IV fluids, normal CPK Acute on chronic non blood loss anemia Iron 44/TIBC 213 some component of chronic anemia and dilution H/H stable overnight HTN stable continue home antihypertensives diabetes on trulicity, treseiba converted to lantus ss, ada diet hyperlipidemia continue statin Mood continue bupropion bph continue flomax DVT prophylaxis: lovenox Attending Dr. Lamas seen by PT - rec STR continue hospitalization for safe dispo Time Spent With Patient Time: Total time managing care of this patient today ____ minutes. Quality Stroke Does the patient have a stroke diagnosis?: No VTE Prior VTE?: No VTE Risk Level:: Surgical - very high VTE Device Contraindication: N/A - Device Ordered VTE Drug Contraindication: Treatment Not Indicated
[2022-08-24 13:20] LABS: Glucose, Whole Blood 174 mg/dL (60-115)
[2022-08-24 13:20] LABS: Glucose, Whole Blood 184 mg/dL (60-115)
[2022-08-24 13:20] LABS: Glucose, Whole Blood 159 mg/dL (60-115)
[2022-08-24 13:20] LABS: Glucose, Whole Blood 88 mg/dL (60-115)
[2022-08-24 13:20] LABS: Glucose, Whole Blood 169 mg/dL (60-115)
[2022-08-24 13:20] LABS: Glucose, Whole Blood 332 mg/dL (60-115)
[2022-08-24 13:20] LABS: Glucose, Whole Blood 165 mg/dL (60-115)
--- NOTE | 2022-08-24 14:08 | HO.POSTANES ---
Post Anesthesia Evaluation Post Anesthesia Evaluation Date of Service: 08/24/22 Vital Signs: Vital Signs Temp Pulse Resp BP Pulse Ox O2 Del Method 08/24/22 07:47 97.8 F 89 18 137/64 94 Room Air 08/24/22 02:56 98.2 F 87 18 125/57 L 08/24/22 02:55 98.2 F 87 18 125/57 L Anesthesia: General Mental Status: Awake Pain Control: Satisfactory Nausea/Vomiting: None Hydration: Adequate Anesthesia-Related Issues: No Anes. Related Issues
--- NOTE | 2022-08-24 14:54 | MHC.CM.PN ---
per rounds pt expected to dc referral to analilia in anticapation of dc
--- NOTE | 2022-08-24 15:52 | MHC.CM.PN ---
spoke with son made aware of possible dc completed a new hcp w/pt
[2022-08-24 16:43] LABS: Glucose, Whole Blood 226 mg/dL (60-115)
[2022-08-24] MEDS: Enoxaparin Sodium 40 MG/0.4 ML SYRINGE SUBCUT (16:45)
[2022-08-24 19:59] VITALS: BP 121/28; PULSE 75; RESP 19; TEMP 36.8; O2SAT 95
[2022-08-24 20:31] LABS: Glucose, Whole Blood 203 mg/dL (60-115)
[2022-08-25 03:36] VITALS: BP 132/60; PULSE 78; RESP 19; TEMP 37.1; O2SAT 94
[2022-08-25 07:15] LABS: Glucose, Whole Blood 146 mg/dL (60-115)
[2022-08-25 07:49] VITALS: BP 132/60; PULSE 80; RESP 16; TEMP 36.4; O2SAT 98
[2022-08-25] MEDS: oxyCODONE HCl Immed Release 5 MG TABLET PO ×2 (08:39→14:39)
[2022-08-25] MEDS: buPROPion HCl XL 300 MG TAB.ER.24H PO (08:39)
[2022-08-25] MEDS: Tamsulosin HCL 0.4 MG CAPSULE PO (08:40)
[2022-08-25] MEDS: Losartan Potassium 25 MG TABLET PO (08:40)
[2022-08-25] MEDS: Atorvastatin Calcium 20 MG TABLET PO (08:40)
[2022-08-25] MEDS: 0.9 % Sodium Chloride Flush 3 ML SYRINGE IVFLUSH (08:45)
[2022-08-25] MEDS: Latanoprost 0.005 % Ophth Sol 2.5 ML DROPS 1 DROP EYE-BOTH (08:52)
[2022-08-25] MEDS: Dorzolamide/Timolo 2.23%/0.68% 10 ML DRBTL 1 DROP EYE-BOTH (08:52)
[2022-08-25] MEDS: Insulin Glargine,Hum.rec.anlog 100 UNIT/ML 10 ML VIAL 14 UNIT SUBCUT (08:57)
--- NOTE | 2022-08-25 09:06 | PM.PNORT ---
Subjective Subjective Date of Service: 08/25/22 Interval history: POD2 s/p right hip IM Nail. No overnight events. Pain is managed. No additional complaints. Physical Exam Vital Signs: Vital Signs: Last Vital Signs Temp 97.6 F 08/25/22 07:49 Pulse 80 08/25/22 07:49 Resp 16 08/25/22 07:49 BP 132/60 08/25/22 07:49 Pulse Ox 98 08/25/22 07:49 O2 Del Method Room Air 08/25/22 07:49 O2 Flow Rate 2 08/23/22 18:45 BMI result Body Mass Index 30.7 Const: General: cooperative, healthy appearing and no acute distress Resp: Effort & Inspection: normal respiratory effort and able to speak in complete sentences Cardio: Rate: regular rate Peripheral pulses: Peripheral pulses 2+ throughout GI: Palpation (GI): Soft to palpation Skin: Lesions: no lesions Rashes: no rashes Extrem: Other: Right hip dressings are c/d/i. Able to dorsi/plantar flex. NVI. Procedures Date of Service Date of Service: 08/25/22 Progress Note: A&P Assessment and plan (1) Closed intertrochanteric fracture of right femur: Status: Acute (2) ORION (acute kidney injury): Status: Acute Plan Continue pain mgmnt Continue Lovenox for dvt ppx Continue PT for right hip IM Nail - WBAT Dispo planning-Pending PT eval, pain mgmnt Time Spent With Patient Time: Total time managing care of this patient today ____ minutes. Quality Stroke Does the patient have a stroke diagnosis?: No VTE Prior VTE?: No VTE Risk Level:: Surgical - very high VTE Device Contraindication: N/A - Device Ordered VTE Drug Contraindication: Treatment Not Indicated
[2022-08-25] MEDS: Morphine Sulfate 4 MG/ML CARTRIDGE IVPUSH (11:05)
[2022-08-25] MEDS: Sennosides 8.6 MG TABLET PO (11:05)
[2022-08-25 11:17] LABS: Glucose, Whole Blood 340 mg/dL (60-115)
[2022-08-25] MEDS: Insulin Lispro 100 UNIT/ML 3 ML VIAL SUBCUT (11:49)
--- NOTE | 2022-08-25 12:08 | PM.DS ---
DS: Providers Provider Date of Service: 08/25/22 Date of admission: 08/22/22 06:33 Date of discharge: 08/25/22 Primary care physician: Uli Arevalo MD Consults: 08/22/22 06:37 Consult to Orthopedics Routine Consulting Provider: [facility] [place] [facility] Reason for consultation: Fall, right intertrochanteric fracture Has provider been notified: Yes Attending physician on discharge: Rommel Lamas Discharging clinician: Veronica Childs DS: Diagnosis Discharge Diagnosis (1) Closed intertrochanteric fracture of right femur: Status: Acute (2) ORION (acute kidney injury): Status: Acute (3) Anemia: Status: Acute DS: Summary Hospital Course Hospital Course: From H&P on day of admission 87-year-old male past medical history of hyperlipidemia, HTN, diabetes comes into the hospital after slipping and falling.? Patient reports that he was awake, alert, when walking around his house, he slipped and fell.? Denies any loss of consciousness, no PE trauma or postictal symptoms.? Had significant right-sided pain after falling on the right side.? Including get up.? Called EMS.? Now found to have? mildly displaced intertrochanteric fracture of the right femur.? Patient now denies any chest pain, no shortness of breath, no abdominal pain nausea vomiting, no diarrhea constipation, no urinary symptoms and no lower extremity edema.? On arrival to the ED patient hemodynamically stable no significant abnormal vitals Labs are significant for WBC count of 9.8, hemoglobin 12.1, hematocrit 34.6, creatinine of 1.58, BUN of 28, creatinine of baseline around 1.4, ?labs otherwise unremarkable Acute right femur fracture secondary to mechanical fall. was seen by Orthopedic surgery and underwent right IMN placement on 08/23. He has had uneventful postoperative course. Pain is adequately controlled. he was seen by Physical therapy who recommended short-term rehab. Will need outpatient follow-up with Orthopedic surgery. ORION on CKD 3. likely secondary to dehydration. renal function improved to previous baseline with IVF. Acute on chronic non blood loss anemia Iron 44/TIBC 213 likely combination of anemia and dilution H/H stable overnight. patient remains asymptomatic. periodic outpatient follow up recommended Thrombocytopenia. chronic. Time Spent with Patient Time attestation: Total time managing care of this patient today ____ minutes. Discharge coordination time: Greater than 30 minutes Quality: Safe Use of Opioids Does Pt have an Active Cancer Diagnosis on the Problem List?: No Quality: Stroke Does the patient have a stroke diagnosis?: No Physical Exam Vital Signs: Vital Signs: Last Vital Signs Temp 97.6 F 08/25/22 07:49 Pulse 80 08/25/22 07:49 Resp 16 08/25/22 07:49 BP 132/60 08/25/22 07:49 Pulse Ox 98 08/25/22 07:49 O2 Del Method Room Air 08/25/22 07:49 O2 Flow Rate 2 08/23/22 18:45 BMI result Body Mass Index 30.7 Const: General: cooperative, comfortable, no acute distress, alert and awake Resp: Effort & Inspection: normal respiratory effort, able to speak in complete sentences, no respiratory distress and no use of accessory muscles Auscultation: clear to auscultation bilaterally Cardio: Rate: regular rate Heart sounds: S1 normal heart sound present and S2 normal heart sound present GI: Inspection: No distended Palpation (GI): Soft to palpation and nontender Neuro: General: moves all extremities and CN's II-XI intact bilaterally Extrem: Other: bandage right hip/leg without staining DS: Data Data Completed and Pending Labs on day of discharge: Laboratory Results - last 24 hr 08/22/22 08/22/22 08/23/22 16:45 20:28 11:04 POC Glucose 88 184 H 159 H 08/23/22 08/23/22 08/24/22 14:11 21:14 07:32 POC Glucose 165 H 169 H 174 H 08/24/22 08/24/22 08/24/22 11:19 16:39 20:27 POC Glucose 332 H 226 H 203 H 08/25/22 08/25/22 07:07 11:10 POC Glucose 146 H 340 H Discharge Plan Discharge Anticipated Discharge Date/Time: 08/25/22 15:30 Patient Disposition: Xfer SNF Discharge Diagnosis: acute right intertrochanteric fracture of right femur s/p IMN ORION Anemia Referrals: Uli Arevalo MD [Primary Care Provider] - 1 Week Megha Cervantes PA-C [Physician [facility]] - 2 Weeks (09/06/22 @ 11:30am ) Discharge Medications: New enoxaparin 40 mg/0.4 mL Syringe 40 mg subcut Q24H 42 Days Qty: 16.8 0RF polyethylene glycol 3350 17 gram Powder In Packet 17 g PO DAILY PRN (Reason: constipation ) Qty: 30 0RF docusate sodium 100 mg Capsule 100 mg PO BEDTIME Qty: 30 0RF oxycodone 5 mg Tablet 5 mg PO Q6H PRN (Reason: Pain, Severe (Pain Scale 7-10)) Qty: 12 0RF Rx Instructions: Partial Fill upon patient request. Continued latanoprost 0.005 % drops 1 drp ophthalmic (eye) BID atorvastatin 20 mg tablet 20 mg PO DAILY tamsulosin 0.4 mg capsule 0.4 mg PO DAILY metformin 1,000 mg tablet 1,000 mg PO BID losartan 25 mg tablet 25 mg PO DAILY dorzolamide-timolol 22.3-6.8 mg/mL drops 1 drp ophthalmic (eye) BID bupropion HCl 300 mg tablet extended release 24 hr 300 mg PO DAILY ramelteon 8 mg tablet 8 mg PO BEDTIME Alphagan P 0.1 % drops 1 drp ophthalmic (eye) BEDTIME insulin degludec [Tresiba FlexTouch U-100] 100 unit/mL (3 mL) insulin pen 20 unit subcut DAILY Rhopressa 0.02 % drops 1 drp ophthalmic (eye) BEDTIME Trulicity 3 mg/0.5 mL pen injector 3 mg subcut QWEEK Discharge Orders: Discharge Order (Routine); Ordered 08/25/22 Ordered By: Veronica Childs Diet: Regular diet Activity on Discharge: Use cane or walker Stand Alone Forms: Patient Portal Discharge page Care Plan Goals: see below Health Concerns: acute right intertrochanteric fracture of right femur s/p IMN ORION. resolved. Anemia Plan of Treatment: Gait training, strengthening, ADLs Continue Lovenox x6 weeks Keep dressing clean,dry and intact-no showering or tub baths Follow up with Orthopedics in 2 weeks Periodic monitoring of anemia Assessment: see discharge summary
--- NOTE | 2022-08-25 12:35 | MHC.CM.PN ---
PT MEDICALLY CLEARED FOR D/C TO [facility] FOR [facility]SPORT
[2022-08-25] MEDS: Enoxaparin Sodium 40 MG/0.4 ML SYRINGE SUBCUT (13:57)
--- NOTE | 2022-08-25 15:50 | W.PM.OPN ---
Operative Note Operative Note Date of Service: 08/23/22 Narrative: Date of Service: 08/23/22 Pre-op diagnosis: Right IT fracture Procedure: IMN right hip Implants: [place] [id number] 125 deg imn with 105 mm hip screw and 50 mm distal interlock Surgeon: Giblert Victoria MD Anesthesia: GETA and local Was an [employer] used for this Procedure?: No Estimated blood loss (mL): 150 IV fluids (mL): 800 Pathology: none sent Condition: stable Disposition: PACU Procedure in detail: Patient was brought to the operating room and prepped and draped in standard sterile fashion. Time-out was called to identify proper site procedure proper surgeon and IV antibiotics per weight were administered. She was positioned on the fracture table and a traction and slight internal rotation were performed and biplanar fluoroscopy confirmed initial fracture reduction. I then made a stab incision proximal to the greater trochanter in using a guidewire made a entry point just lateral to the tip of the greater trochanter and placed a guidewire into the femoral metadiaphysis. I then over-reamed with 15 mm Reamer placed my ball-tip guidewire down distally in the femur and measured my length. I selected a [id number] nail and reamed up to a 13. I then placed the nail. I then turned my attention to the hip screw where I used a guidewire and a tip apex distance of less than 1.5 measured my hip screw. I then pre drilled and placed a 105mm hip screw using biplanar fluoroscopy. Once I was satisfied with the position of the hip screw I turned my attention to the distal aspect of the nail. Using perfect otoe-[place] technique I placed 1 static distal interlocking screw in standard AO technique. I then removed all I then placed my set screw proximally and removed all extraneous instrumentation. Final biplanar radiographs were taken. I was satisfied with the position of the hardware and the fracture reduction. I think copiously irrigated closed with absorbable sutures black and injected 30 mL of into the area of the incisions. Traction was let down patient was placed in sterile dressing awakened from anesthesia brought to recovery room stable condition there were no known complications.
[2022-08-29 09:55] LABS: Glucose, Whole Blood 108 mg/dL (60-115)
[2022-08-29 10:01] LABS: Glucose, Whole Blood 184 mg/dL (60-115)
[2022-08-29 10:03] LABS: Glucose, Whole Blood 106 mg/dL (60-115)
== END 2022-08-25 15:34 | disposition skilled nursing facility (03) | DRG 481 ==
LOC: HO.ED 06:30 → HO.EDOVER 07:18 → HO.S3 14:53
PROVIDERS: Nurse Practitioner Acute Care; Orthopaedic Surgery; Admitting Provider Internal Medicine; Emergency Provider Emergency Medicine; PCP Internal Medicine; Visit Provider Physician Assistant Medical
PROC: 0QS636Z Reposition Right Upper Femur with Intramedullary Internal Fixation Device, Percutaneous Approach (ICD-10-PCS; principal; 2022-08-23 14:00)
DX: S72.141A Displaced intertrochanteric fracture of right femur, initial encounter for closed fracture (principal); N17.9 Acute kidney failure, unspecified; E86.0 Dehydration; W19.XXXA Unspecified fall, initial encounter; D63.1 Anemia in chronic kidney disease; E78.5 Hyperlipidemia, unspecified; I12.9 Hypertensive chronic kidney disease with stage 1 through stage 4 chronic kidney disease, or unspecified chronic kidney disease; N18.30 Chronic kidney disease, stage 3 unspecified; E11.22 Type 2 diabetes mellitus with diabetic chronic kidney disease; Z79.4 Long term (current) use of insulin; Z79.84 Long term (current) use of oral hypoglycemic drugs; Z79.899 Other long term (current) drug therapy
CPT/HCPCS: 36415; 71045; 73502; 80048; 80076; 82550; 82947; 83540; 85025; 85610; 86850; 86900; 86901; 86923; 97161; 97166; 97530; 99285; C1713; C1769; J0131; J0690; J1650; J2270; J2370; J2371; J2405; J2795; P9016

== ENCOUNTER → 2022-08-22 03:17 | Outpatient (BNV) | payer MEDICARE, OTHER, SELFPAY | PROVIDERS: Emergency Provider Emergency Medicine; PCP Internal Medicine; Visit Provider Internal Medicine | DX: S72.141A Displaced intertrochanteric fracture of right femur, initial encounter for closed fracture (principal); N17.9 Acute kidney failure, unspecified; D64.9 Anemia, unspecified | CPT/HCPCS: 99223; 99232; 99239; 99499 ==

== ENCOUNTER → 2022-08-22 06:33 | Outpatient (BNV) | payer MEDICARE, OTHER, SELFPAY | PROVIDERS: Admitting Provider Internal Medicine; Emergency Provider Emergency Medicine; PCP Internal Medicine; Visit Provider Physician Assistant | DX: N17.9 Acute kidney failure, unspecified (principal) | CPT/HCPCS: 27245; 99024; 99221; 99231 ==

== ENCOUNTER 2022-09-06 11:12 | Outpatient (AMB) | payer MEDICARE, OTHER, SELFPAY ==
--- NOTE | 2022-09-06 11:27 | MHC.OFFVIS ---
Intake Intake Visit Reasons: PO RT IMW 08/23/22NE Allergies No Known Allergies Allergy (Verified 08/22/22 02:38) HPI PO RT IMW 08/23/22NE HPI Details 87-year-old male who presents in the office today 2 weeks status post right hip intramedullary nailing, which was performed on 08/23/[address] Victoria. He is currently at an acute rehab. He confirms he has been working with physical therapy. He states he has been walking but it is painful. He has been using a walker to assist with ambulation. He presents today in a wheelchair. [facility] Medical History Diabetes Glaucoma Hyperlipidemia Hypertension Social History Housing: Assisted Living Facility Do you presently have visiting nurse or other home services: No Alcohol intake: current Alcohol intake frequency: a few times a week Alcohol type: wine and hard liquor Patient Tobacco Use Status: Never used Tobacco service: No Review of Systems Const All systems reviewed & are unremarkable except as noted in HPI and below Physical Exam Extrem Other: Right hip: Incision site is clean, dry, and intact. Able to slightly flex and extend with limitation due to pain. NVI. Assessment & Plan Assessment & Plan (1) Closed intertrochanteric fracture of right femur: Comment: Right hip IM nailing 08/23/2022 NE Code(s): S72.141A - Displaced intertrochanteric fracture of right femur, initial encounter for closed fracture Plan Mr. Magallon is an 87-year-old male who presents in the office today 2 weeks status post right hip intramedullary nailing, which was performed on 08/23/[address] Victoria. He is currently at an acute rehab. He confirms he has been working with physical therapy. He states he has been walking but it is painful. He has been using a walker to assist with ambulation. He presents today in a wheelchair. [place] were removed and steri-stripes were applied while in the office today. He will continue to work with physical therapy on glute, quad, and core strengthening. He should continue to ambulate with the walker. Follow up will be in 4 weeks with x-rays, or sooner if needed. Patient Instructions: Scribed for Megha Cervantes PA-C by Richa Baig behavioral medical director, on 09/06/2022 at 11:17 am, EST. Your attestation Coding Level of Care Code Global (30571) Diagnoses Closed intertrochanteric fracture of right femur S72.141A
== END 2022-09-06 12:12 | disposition home or self-care (01) ==
PROVIDERS: PCP Internal Medicine; Visit Provider Physician Assistant
DX: S72.141A Displaced intertrochanteric fracture of right femur, initial encounter for closed fracture (principal)
CPT/HCPCS: 99024

== ENCOUNTER → 2022-09-06 11:12 | Outpatient (BNVA) | payer MEDICARE, OTHER, SELFPAY | PROVIDERS: PCP Internal Medicine; Visit Provider Physician Assistant ==

== ENCOUNTER 2022-10-06 14:04 | Outpatient (AMB) | payer MEDICARE, OTHER, SELFPAY ==
--- NOTE | 2022-10-06 14:11 | A.OFFVIS_ITS ---
Intake Intake Visit Reasons: PO-RT IMW 08/23/22NE-w/Xrays Intake Note: Ryan is a 87 year old male who presents today for a post op visit s/p RT IMW 08/23/22NE. Patient reports feeling a little better after the surgery. He states having some discomfort when he walks around. Allergies No Known Allergies Allergy (Verified 10/06/22 14:11) HPI PO-RT IMW 08/23/22NE-w/Xrays HPI Details 87-year-old male who presents in the office today 1 month status post right hip intramedullary nailing, which was performed on 08/23/[address] Victoria. [facility] Medical History Diabetes Glaucoma Hyperlipidemia Hypertension Social History Housing: Assisted Living Facility Do you presently have visiting nurse or other home services: No Alcohol intake: current Alcohol intake frequency: a few times a week Alcohol type: wine and hard liquor Patient Tobacco Use Status: Never used Tobacco service: No Review of Systems Const All systems reviewed & are unremarkable except as noted in HPI and below Physical Exam Const General: cooperative, healthy appearing and no acute distress Resp Effort & Inspection: normal respiratory effort and able to speak in complete sentences Cardio Rate: regular rate Peripheral pulses: Peripheral pulses 2+ throughout GI Palpation (GI): Soft to palpation Skin Lesions: no lesions Rashes: no rashes Extrem Other: Right hip: Incision site is well approximated and completely healed. No signs of infection. Full passive ROM with flexion, extension, internal and external rotation with minimal discomfort. Weakness with straight leg raise, but is able to activate gait to quad. NVI. Assessment & Plan Assessment & Plan (1) Closed intertrochanteric fracture of right femur: Comment: Right hip IM nailing 08/23/2022 NE Code(s): S72.141A - Displaced intertrochanteric fracture of right femur, initial encounter for closed fracture Plan Mr. Magallon is an 87-year-old male who presents in the office today 1 month status post right hip intramedullary nailing, which was performed on 08/23/[address] Victoria. The patient will continue to work with physical therapy on glute, quad, and core strengthening, as well as gait training. He reports he is anticipating discharge from rehab tomorrow, recommendation for home services. I would like to see him back in 5 weeks, or sooner if needed. Patient Instructions: Scribed for Megha Cervantes PA-C by Richa Baig center medical and lab director, on 10/06/2022 at 2:06 pm, EST. Coding Level of Care Code Global (37082) Diagnoses Closed intertrochanteric fracture of right femur S72.141A
== END 2022-10-06 14:49 | disposition home or self-care (01) ==
PROVIDERS: PCP Internal Medicine; Visit Provider Physician Assistant
DX: S72.141A Displaced intertrochanteric fracture of right femur, initial encounter for closed fracture (principal)
CPT/HCPCS: 99024

== ENCOUNTER → 2022-10-06 14:04 | Outpatient (BNVA) | payer MEDICARE, OTHER, SELFPAY | PROVIDERS: PCP Internal Medicine; Visit Provider Physician Assistant ==

== ENCOUNTER 2022-11-08 12:25 | Outpatient (REF) | payer MEDICARE, OTHER, SELFPAY ==
--- NOTE | ~2022-11-08 | XR_ITS ---
EXAMINATION: XR FEMUR, RIGHT CLINICAL INFORMATION: Displaced intertrochanteric fracture COMPARISON: Hip radiograph 07/23/2022 TECHNIQUE: AP and lateral views of the right femur were obtained. FINDINGS: Status post ORIF of the right intertrochanteric hip fracture in improved alignment with periosteal reaction and no definite bridging bony callus formation. Subtle lucency only appreciated on a single view along the lateral aspect of the proximal femoral diaphysis, unclear if this could reflect a nondisplaced periprosthetic fracture versus possibly a nutrient channel, CT could be considered for further evaluation. A dense focus of heterotopic ossification adjacent to the greater trochanter. Mild degenerative changes of the hip with acetabular osteophytes. Atherosclerotic vascular calcification. Calcified phleboliths in the pelvis. XR/XR femur RT 2V IMPRESSION: 1. Status post ORIF of the right intertrochanteric hip fracture in improved alignment with periosteal reaction and no definite bridging bony callus formation. 2. Subtle lucency only appreciated on a single view along the lateral aspect of the proximal femoral diaphysis, unclear if this could reflect a nondisplaced periprosthetic fracture versus possibly a nutrient channel, a CT could be considered for further evaluation if warranted.
== END 2022-11-08 12:26 | disposition home or self-care (01) ==
LOC: HO.HOSX 12:25
PROVIDERS: Visit Provider Physician Assistant
DX: Z13.89 Encounter for screening for other disorder (principal)

== ENCOUNTER 2022-11-11 12:54 | Outpatient (AMB) | payer MEDICARE, OTHER, SELFPAY ==
--- NOTE | 2022-11-11 13:13 | MHC.OFFVIS ---
Intake Vital Signs 11/11/22 13:28 Height 5 ft 10 in Weight 200 lb BMI 28.7 Intake Visit Reasons: PO-RT IMW 08/23/22NE-w/Xrays Intake Note: Ryan is a 87 year old male who presents today for a follow up visit s/p RT IMW 08/23/22 NE. Patient reports his symptoms has improved after the surgery. He states that he feels some soreness when he walks. Allergies No Known Allergies Allergy (Verified 11/11/22 13:28) HPI PO-RT IMW 08/23/22NE-w/Xrays HPI Details 87-year-old male who presents in the office today 3 month status post right hip intramedullary nailing, which was performed on 08/23/[address] Victoria. The patient reports his symptoms have improved after surgery. He states he does have some soreness when ambulating. [facility] Medical History Diabetes Glaucoma Hyperlipidemia Hypertension Social History Housing: Assisted Living Facility Do you presently have visiting nurse or other home services: No Alcohol intake: current Alcohol intake frequency: a few times a week Alcohol type: wine and hard liquor Patient Tobacco Use Status: Never used Tobacco service: No Review of Systems Const All systems reviewed & are unremarkable except as noted in HPI and below Physical Exam Vital Signs: BMI result Body Mass Index 28.7 Const General: cooperative, healthy appearing and no acute distress Resp Effort & Inspection: normal respiratory effort and able to speak in complete sentences Cardio Rate: regular rate Peripheral pulses: Peripheral pulses 2+ throughout GI Palpation (GI): Soft to palpation Skin Lesions: no lesions Rashes: no rashes Extrem Other: Right hip: Incision site is clean, dry, and intact. No signs of infection. Full ROM. NVI. Assessment & Plan Assessment & Plan (1) Closed intertrochanteric fracture of right femur: Comment: Right hip IM nailing 08/23/2022 NE Code(s): S72.141A - Displaced intertrochanteric fracture of right femur, initial encounter for closed fracture Qualifiers: Encounter type: subsequent encounter Fracture alignment: nondisplaced Fracture healing: with routine healing Qualified Code(s): S72.144D - Nondisplaced intertrochanteric fracture of right femur, subsequent encounter for closed fracture with routine healing Plan Mr. Magallon is an 87-year-old male who presents in the office today 3 month status post right hip intramedullary nailing, which was performed on 08/23/[address] Victoria. The patient reports his symptoms have improved after surgery. He states he does have some soreness when ambulating. The patient will need home VNA services to work with physical therapy. I would like for him to work on glue, quad, core strengthening, and gait training. He does not drive therefore, will require at home services. Follow up will be in 6-8 weeks, or sooner if needed. X-rays of the right hip obtained while in the office today and reviewed by me, Megha Cervantes PA-C, revealed intact orthopedic hardware with routine healing. Orders: Orders XR femur RT 2V Today S72.141A - Displaced intertrochanteric fracture of right femur, initial encounter for closed fracture [facility]errals [facility] Referral S72.141A - Displaced intertrochanteric fracture of right femur, initial encounter for closed fracture Patient Instructions: Scribed for Megha Cervantes PA-C by Richa Baig medical billing representative, on 11/11/2022 at 1:02 pm, EST. Coding Level of Care Code Global (38139) Diagnoses Closed nondisplaced intertrochanteric fracture of right femur with routine healing, subsequent encounter S72.144D Encounter type: subsequent encounter Fracture alignment: nondisplaced Fracture healing: with routine healing
[2022-11-11 13:28] VITALS: BMI 28.7
== END 2022-11-11 13:46 | disposition home or self-care (01) ==
PROVIDERS: PCP Internal Medicine; Visit Provider Physician Assistant
DX: S72.144D Nondisplaced intertrochanteric fracture of right femur, subsequent encounter for closed fracture with routine healing (principal)
CPT/HCPCS: 99024

== ENCOUNTER → 2022-11-11 12:54 | Outpatient (BNVA) | payer MEDICARE, OTHER, SELFPAY | PROVIDERS: PCP Internal Medicine; Visit Provider Physician Assistant | DX: S72.144D Nondisplaced intertrochanteric fracture of right femur, subsequent encounter for closed fracture with routine healing (principal) | CPT/HCPCS: 73552 ==

== ENCOUNTER 2022-12-23 14:09 | Outpatient (AMB) | payer MEDICARE, OTHER, SELFPAY ==
--- NOTE | 2022-12-23 14:24 | MHC.OFFVIS ---
Intake Intake Visit Reasons: OV-RT IMW 08/23/22NE-w/Xrays Intake Note: Ryan is a 87 year old male who presents today for a follow up visit s/p RT IMW 08/23/22 NE. Patient reports he is having some pain in his hip but feels a bit better. Allergies No Known Allergies Allergy (Verified 12/23/22 14:26) HPI OV-RT IMW 08/23/22NE-w/Xrays HPI Details 87-year-old male who presents in the office today 4 month status post right hip intramedullary nailing, which was performed on 08/23/[address] Victoria. The patient is ambulating with a walker in the office today. [facility] Medical History Diabetes Glaucoma Hyperlipidemia Hypertension Social History Housing: Assisted Living Facility Do you presently have visiting nurse or other home services: No Alcohol intake: current Alcohol intake frequency: a few times a week Alcohol type: wine and hard liquor Patient Tobacco Use Status: Never used Tobacco service: No Review of Systems Const All systems reviewed & are unremarkable except as noted in HPI and below Physical Exam Const General: cooperative, healthy appearing and no acute distress Resp Effort & Inspection: normal respiratory effort and able to speak in complete sentences Cardio Rate: regular rate Peripheral pulses: Peripheral pulses 2+ throughout GI Palpation (GI): Soft to palpation Skin Lesions: no lesions Rashes: no rashes Extrem Other: Right hip: Incision site is clean, dry, and intact. No signs of infection. Well aproximated and healed. Full ROM. NVI. Assessment & Plan Assessment & Plan (1) Closed intertrochanteric fracture of right femur: Comment: Right hip IM nailing 08/23/2022 NE Code(s): S72.141A - Displaced intertrochanteric fracture of right femur, initial encounter for closed fracture Qualifiers: Encounter type: subsequent encounter Fracture alignment: nondisplaced Fracture healing: with routine healing Qualified Code(s): S72.144D - Nondisplaced intertrochanteric fracture of right femur, subsequent encounter for closed fracture with routine healing Plan Mr. Magallon is an 87-year-old male who presents in the office today 4 month status post right hip intramedullary nailing, which was performed on 08/23/[address] Victoria. The patient is ambulating with a walker in the office today. The patient presents with a progress note from his at home physical therapy requesting for him to transition to a cane with physical therapy supervision. I feel this is appropriate at this time. They have also requested out patient physical therapy, which an order has been placed today. I would like to see him back in 8 weeks, or sooner if needed. Orders: Orders PT Evaluation and Treatment Today S72.141A - Displaced intertrochanteric fracture of right femur, initial encounter for closed fracture Patient Instructions: Scribed for Megha Cervantes PA-C by Richa Baig nurses medical assistants phlebotomists, on 12/23/2022 at 2:13 pm, EST. Coding Level of Care Code Est Pt Level 3 (40627) Diagnoses Closed nondisplaced intertrochanteric fracture of right femur with routine healing, subsequent encounter S72.144D Encounter type: subsequent encounter Fracture alignment: nondisplaced Fracture healing: with routine healing
== END 2022-12-23 14:32 | disposition home or self-care (01) ==
PROVIDERS: PCP Internal Medicine; Visit Provider Physician Assistant
DX: S72.144D Nondisplaced intertrochanteric fracture of right femur, subsequent encounter for closed fracture with routine healing (principal)
CPT/HCPCS: 99213

== ENCOUNTER → 2022-12-23 14:09 | Outpatient (BNVA) | payer MEDICARE, OTHER, SELFPAY | PROVIDERS: PCP Internal Medicine; Visit Provider Physician Assistant | DX: S72.144D Nondisplaced intertrochanteric fracture of right femur, subsequent encounter for closed fracture with routine healing (principal) | CPT/HCPCS: 99212 ==

== ENCOUNTER 2023-02-11 11:15 | Outpatient (REF) | payer MEDICARE, OTHER, SELFPAY | END 2023-02-11 11:16 | disposition home or self-care (01) | LOC: HO.HOSX 11:15 | PROVIDERS: Visit Provider Physician Assistant | DX: Z13.89 Encounter for screening for other disorder (principal) ==

== ENCOUNTER 2023-02-17 10:29 | Outpatient (REF) | payer MEDICARE, OTHER, SELFPAY | END 2023-02-17 10:30 | disposition home or self-care (01) | LOC: HO.HOSX 10:29 | PROVIDERS: Visit Provider Physician Assistant | DX: Z13.89 Encounter for screening for other disorder (principal) ==

== ENCOUNTER 2023-02-28 10:18 | Outpatient (REF) | payer MEDICARE, OTHER, SELFPAY ==
--- NOTE | ~2023-02-28 | XR_ITS ---
EXAMINATION: XR FEMUR, RIGHT CLINICAL INFORMATION: Follow-up displaced intertrochanteric fracture. COMPARISON: Prior radiographs dated 11/11/2022, 08/23/2022 and 08/22/2022. TECHNIQUE: AP and lateral views of the right femur were obtained. FINDINGS: A healing fracture is redemonstrated of the intertrochanteric region of the proximal right femur, in stable alignment. There is a persistent fracture line, and there is increased periosteal callus formation. There is an intact intramedullary ursula with intact proximal compression screw and distal fixator screw. No hardware failure or loosening is seen. 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 The right femoral head remains smooth. There are diffuse iliofemoropopliteal atherosclerotic calcifications. XR/XR femur RT 2V IMPRESSION: There is stable alignment of a healing fracture of the intertrochanteric region of the proximal right femur. No hardware failure or loosening is seen.
== END 2023-02-28 10:19 | disposition home or self-care (01) ==
LOC: HO.HOSX 10:18
PROVIDERS: Visit Provider Physician Assistant
DX: S72.141D Displaced intertrochanteric fracture of right femur, subsequent encounter for closed fracture with routine healing (principal); X58.XXXD Exposure to other specified factors, subsequent encounter
CPT/HCPCS: 73552; 99212

== ENCOUNTER 2023-02-28 11:15 | Outpatient (AMB) | payer MEDICARE, OTHER, SELFPAY ==
[2023-02-28 11:23] VITALS: BMI 28.7
--- NOTE | 2023-02-28 11:23 | A.OFFVIS_ITS ---
Intake Vital Signs 02/28/23 11:23 Height 5 ft 10 in Weight 200 lb BMI 28.7 Intake Visit Reasons: OV - RT IMW 08/23/22NE-w/Xrays Intake Note: Ryan is a 87 year old male who presents today with a walker for a follow up visit s/p RT IMW 08/23/22 NE. Patient report he is doing good, no pain or discomfort. He states that he uses his walking when he is walking out side for more support, however when he is home he doesn't use the walker. Allergies No Known Allergies Allergy (Verified 02/28/23 11:24) HPI OV - RT IMW 08/23/22NE-w/Xrays HPI Details 87-year-old male who presents in the off ice today 6 month status post right hip intramedullary nailing, which was performed on 08/23/[address] Victoria. I last saw the patient in the office on 12/23/2022 where he was rodriguez sitioned to the use of a cane. He was also transitioned to out patient physical therapy. The patient reports he is doing good with no pain or discomfort. He states he has been walking outside with the assistance of his walker for more support, however, when he is at home he states he does not use the walker. [facility] Medical History Diabetes Glaucoma Hyperlipidemia Hypertension Social History Housing: Assisted Living Facility Do you presently have visiting nurse or other home services: No Alcohol intake: current Alcohol intake frequency: a few times a week Alcohol type: wine and hard liquor Patient Tobacco Use Status: Never used Tobacco service: No Review of Systems Const All systems reviewed & are unremarkable except as noted in HPI and below Physical Exam Vital Signs: BMI result Body Mass Index 28.7 Const General: cooperative, healthy appearing and no acute distress Resp Effort & Inspection: normal respiratory effort and able to speak in complete sentences Cardio Rate: regular rate Peripheral pulses: Peripheral pulses 2+ throughout GI Palpation (GI): Soft to palpation Skin Lesions: no lesions Rashes: no rashes Extrem Other: Right hip: Incision site is well healed. No signs of infection. Full ROM. NVI. Assessment & Plan Assessment & Plan (1) Closed intertrochanteric fracture of right femur: Comment: Right hip IM nailing 08/23/2022 NE Code(s): S72.141A - Displaced intertrochanteric fracture of right femur, initial encounter for closed fracture Qualifiers: Encounter type: subsequent encounter Fracture alignment: nondisplaced Fracture healing: with routine healing Qualified Code(s): S72.144D - Nondisplaced intertrochanteric fracture of right femur, subsequent encounter for closed fracture with routine healing Plan Mr. Magallon is an 87-year-old male who presents in the office today 6 month status post right hip intramedullary nailing, which was performed on 08/23/[address] Victoria. I last saw the patient in the office on 12/23/2022 where he was transitioned to the use of a cane. He was also transitioned to out patient physical therapy. The patient reports he is doing good with no pain or discomfort. He states he has been walking outside with the assistance of his walker for more support, however, when he is at home he states he does not use the walker. The patient presents to the office today ambulating with a walker. He reports he only uses the walker when he leaves the house, otherwise he does not use it while at home. He reports he has discontinued physical therapy. Follow up will be PRN, or sooner if needed. X-rays of the right hip which were obtained while in the office today and were reviewed by me, Megha Cervantes PA-C, revealed intact orthopedic hardware. Orders: Orders XR femur RT 2V Today S72.141A - Displaced intertrochanteric fracture of right femur, initial encounter for closed fracture Patient Instructions: Scribed for Megha Cervantes PA-C by Richa Baig medical technologist prn, on 02/28/2023 at 11:19 am, EST. Coding Level of Care Code Est Pt Level 3 (35837) Diagnoses Closed nondisplaced intertrochanteric fracture of right femur with routine healing, subsequent encounter S72.144D Encounter type: subsequent encounter Fracture alignment: nondisplaced Fracture healing: with routine healing
== END 2023-02-28 11:36 | disposition home or self-care (01) ==
PROVIDERS: PCP Internal Medicine; Visit Provider Physician Assistant
DX: S72.144D Nondisplaced intertrochanteric fracture of right femur, subsequent encounter for closed fracture with routine healing (principal)
CPT/HCPCS: 99212

== ENCOUNTER 2023-04-27 13:42 | Emergency (ER) | payer MEDICARE, OTHER, SELFPAY ==
--- NOTE | ~2023-04-27 | CT_ITS ---
EXAMINATION: CT brain and CT cervical spine without contrast. CLINICAL INDICATION: Syncope and head injury. Fall. COMPARISON: Negative CT brain and cervical spine 12/16/2021 TECHNIQUE: 5 mm thin axial and reformatted 2 mm thin sagittal and coronal images of brain were obtained. Subsequently axial 3 mm thin and reformatted 2 mm thin sagittal and coronal images of cervical spine were obtained. DLP 1212 mGy/cm. : This CT examination was performed using dose optimization technique as appropriate, variously including the following: Automated exposure control Adjustment of MA and/or KV according to patient size(this includes techniques or standardized protocols for targeted exams where dose is matched to indication/reason for exam; extremities or head. Use of iterative reconstruction techniques. FINDINGS: Brain: There is no acute intra-axial, extra-axial bleed, masses or midline shift. There is no acute infarction in evolution. There is no edema. The ramirez to white matter differentiation is maintained normal. The lateral ventricles are symmetrical in size but moderately enlarged. No abnormality seen in the posterior fossa. Bone windows reveal no calvarial abnormality. There is diffuse mucoperiosteal thickening bilateral maxillary sinuses. Cervical spine: There is mild straightening of cervical lordosis. The vertebral heights and alignment is normal. The craniovertebral junction and C1-C2 alignment is normal. There is moderate left C3-C4, moderate right C4-C5, C5-C6 facet joint arthropathy and hypertrophy. No aggressive lytic or sclerotic process seen. There is a subtle lucency and enthesophytes seen along the top of the C2 dense likely degeneration changes. No acute fracture or dislocation seen. The C1-C2 alignment is preserved. There are large bridging ventral osteophytes from C4 through T3 vertebra and below. The prevertebral and paravertebral soft tissues are normal. The tracheal airway is widely patent. There is mild emphysematous changes in lung apices.. CT/CT cervical spine wo IV con IMPRESSION: 1. No acute intracranial process seen. 2. Moderate cerebral volume loss. 3. Chronic bilateral maxillary sinus inflammatory changes. 4. Degenerative facet joint arthropathy. No visible acute fracture or dislocation seen.
--- NOTE | ~2023-04-27 | XR_ITS ---
EXAMINATION: XR THORACOLUMBAR SPINE CLINICAL INFORMATION: Fall and mid back pain. COMPARISON: None available. TECHNIQUE: 3 views. FINDINGS: There is normal thoracic kyphosis. The vertebral heights and alignment are normal. No visible acute fracture, dislocation or subluxation seen. XR/XR thoracic spine 2V IMPRESSION: Degenerative disc changes throughout dorsal spine. No visible acute fracture, dislocation or subluxation seen.
--- NOTE | ~2023-04-27 | XR_ITS ---
EXAMINATION: XR CHEST CLINICAL INFORMATION: Syncope COMPARISON: None available. TECHNIQUE: Frontal view of the chest was obtained. FINDINGS: The lungs are well-expanded and clear. Heart size and pulmonary vascularity is normal. 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 No gross bony abnormality. XR/XR chest 1V IMPRESSION: Unremarkable chest exam.
--- NOTE | 2023-04-27 13:52 | ECG_ITS ---
Test Reason : FALL Blood Pressure : / mmHG Vent. Rate : 065 BPM Atrial Rate : 065 BPM P-R Int : 162 ms QRS Dur : 092 ms QT Int : 420 ms P-R-T Axes : 055 -13 068 degrees QTc Int : 436 ms Normal sinus rhythm Septal infarct (cited on or before 27-APR-2023) Abnormal ECG When compared with ECG of 16-DEC-2021 17:51, No significant change was found Referred By: Efra Jo Electronically Signed By:ALTAF PERRY
--- NOTE | 2023-04-27 13:57 | ED_ITS ---
HPI - Fall General Chief Complaint: Fall Stated Complaint: STROKE SYMPTOMS Time Seen by Provider: 04/27/23 13:52 Source: patient and EMS Mode of arrival: EMS Limitations: no limitations History of Present Illness HPI Narrative: 87-year-old male brought in by ambulance for evaluation after a mechanical fall. Patient lives independently in his house use walker to ambulate, was trying to sit down on a moving chair in his office the chair moved backward and patient lost consciousness fell backward patient attempt to ease the fall by grabbing into the chair which kept moving ending up falling backward and causing small laceration on right side of the head, patient denies LOC, no headache, no weakness, no numbness, no AC, no neck pain, no extremity pain. Patient had a history of falls at home and right hip fracture s/p intramedullary nailing, patient currently is receiving outpatient physical therapy. Patient brought in by ambulance as a stroke protocol my initial screening patient is AAO x3 with NIH score 0. Related Data Home Medications Medication Instructions Recorded Confirmed atorvastatin 20 mg tablet 20 mg PO DAILY 08/22/22 08/22/22 brimonidine 0.1 % eye drops 1 drp ophthalmic (eye) BEDTIME 08/22/22 08/22/22 (Alphagan P) bupropion HCl 300 mg 24 hr tablet, 300 mg PO DAILY 08/22/22 08/22/22 extended release dorzolamide 22.3 mg-timolol 6.8 1 drp ophthalmic (eye) BID 08/22/22 08/22/22 mg/mL eye drops dulaglutide 3 mg/0.5 mL 3 mg subcut QWEEK 08/22/22 08/22/22 subcutaneous pen injector (Trulicity) insulin degludec 100 unit/mL (3 20 unit subcut DAILY 08/22/22 08/22/22 mL) subcutaneous pen (Tresiba FlexTouch U-100 insulin) latanoprost 0.005 % eye drops 1 drp ophthalmic (eye) BID 08/22/22 08/22/22 losartan 25 mg tablet 25 mg PO DAILY 08/22/22 08/22/22 metformin 1,000 mg tablet 1,000 mg PO BID 08/22/22 08/22/22 netarsudil 0.02 % eye drops 1 drp ophthalmic (eye) BEDTIME 08/22/22 08/22/22 (Rhopressa) ramelteon 8 mg tablet 8 mg PO BEDTIME 08/22/22 08/22/22 tamsulosin 0.4 mg capsule 0.4 mg PO DAILY 08/22/22 08/22/22 Previous Rx's Medication Instructions Recorded docusate sodium 100 mg capsule 100 mg PO BEDTIME #30 caps 08/25/22 enoxaparin 40 mg/0.4 mL 40 mg (0.4 mL) subcut Q24H 42 days 08/25/22 subcutaneous syringe #16.8 mL oxycodone 5 mg tablet 5 mg PO Q6H PRN Pain, Severe (Pain 08/25/22 Scale 7-10) #12 tabs polyethylene glycol 3350 17 gram 17 g PO DAILY PRN constipation 08/25/22 oral powder packet #30 ea Allergies Allergy/AdvReac Type Severity Reaction Status Date / Time No Known Allergies Allergy Verified 02/28/23 11:24 Review of Systems 2 Review of Systems: All other systems are reviewed and are negative Constitutional: Reports as per HPI and Reports no additional constitutional complaints Eyes: Reports as per HPI and Reports no additional eye complaints Reports system reviewed and no additional complaints, except as documented Cardiovascular: Reports as per HPI and Reports no additional cardiovascular complaints Respiratory: Reports as per HPI and Reports no additional respiratory complaints Gastrointestinal: Reports as per HPI and Reports no additional gastrointestinal complaints Genitourinary: Reports no additional female genitourinary complaints Musculoskeletal: Reports no additional musculoskeletal complaints Skin/Breast: Reports system reviewed and no additional complaints, except as docu Psychiatric: Reports no additional psychiatric complaints Endocrine: Reports no additional endocrine complaints Hematologic/Lymphatic: Reports no additional hematologic/lymphatic complaints Allergic/Immunologic: Reports no additional allergic/immunologic complaints Reports system reviewed and no additional complaints, except as documented and Reports Abnormal speech present [facility] Past Medical History Medical History Diabetes Hyperlipidemia Glaucoma Hypertension Social History Social History Housing: Assisted Living Facility Do you presently have visiting nurse or other home services: No Alcohol intake: current Alcohol intake frequency: a few times a week Alcohol type: wine and hard liquor Patient Tobacco Use Status: Never used Tobacco Smoked in Last 30 Days: Yes Use of substances other than those prescribed or required for medical reasons: No Advance Directives: No service: No Physical Exam 2 Vital Signs: Vital Signs: Last Vital Signs Temp 98.2 F 04/27/23 19:51 Pulse 57 04/27/23 19:51 Resp 20 04/27/23 19:51 BP 172/70 H 04/27/23 19:51 Pulse Ox 100 04/27/23 19:51 O2 Del Method Room Air 04/27/23 19:51 BMI result Body Mass Index 28.8 Vital signs have been reviewed and appear to be correct. Blood pressure elevated. Heart rate normal. Respiratory rate normal. Temperature normal. Oxygen saturation normal. Appearance: Alert. Oriented X3. No acute distress. Head: Normal external exam. Normocephalic. Dry blood coming from small laceration 3 cm on right parietal area with no active bleeding, no step-off, no deformity. No Gottlieb signs noted. No raccoon eyes noted Eyes: PERRLA. EOMI. Conjunctiva and sclera normal. Eyelids normal. ENT: TM's Normal. Pharynx normal. Uvula midline. Moist mucous membranes. No trismus noted. No drooling noted. No muffled voice noted. Neck: Normal inspection. Neck supple. FROM. No adenopathy. Thyroid Normal. No meningeal signs. No neck mass noted. CVS: Normal heart rate and rhythm. Heart sound normal. No murmurs noted. Pulses normal throughout. Respiratory: No respiratory distress. Painless inspiration. Breath sounds normal. No wheezes/rales/rhonchi noted. Chest nontender. No accessory muscle usage noted or decreased air movement noted. Abdomen: Soft and nontender. Bowel sounds normal in all 4 quadrants. No distention noted. No organomegaly noted. No visible injury noted. Back: No CVA tenderness. Full range of motion noted. Skin: Skin warm and dry. Normal skin color. Normal skin turgor. No rashes/lesions/lacerations noted. Extremities: No lower extremity edema. Extremities exhibit normal range of motion. Extremities nontender. Neuro: Oriented X 3, GCS of 15 Cranial nerve exam: II-XII are grossly intact No motor deficit. No sensory deficit. Reflexes normal. NIH Stroke Scale Internal: Initial- Upon Arrival Level of Consciousness: Alert Level of Consciousness Questions: Answers both questions correctly Level of Consciousness Commands: Performs both tasks correctly Best Gaze: Normal Visual: No visual loss Facial Palsy: Normal Motor Arm (Right): No drift Motor Arm (Left): No drift Motor Leg (Right): No drift Motor Leg (Left): No drift Limb Ataxia: Absent Sensory: Normal Best Language: No aphasia Dysarthia: Normal Extinction and Inattention: No abnormality Score: 0 Course Reevaluation(s) Reevaluation #1: 87-year-old male who came in after sustained a mechanical fall. Normal neuro exam, patient is unsteady to ambulate in the emergency department. Scalp laceration please refer to procedure note. Head/C-spine/thoracic x-ray negative radiographic injuries. Will keep the patient under physician observation for PT eval in a.m. and possible placement. Time: 20:00 Medications Administered Discontinued Medications Generic Name Dose Route Start Last Admin Trade Name Freq PRN Reason Stop Dose Admin Acetaminophen 650 mg 04/27/23 16:36 04/27/23 17:01 Acetaminophen 325 Mg Tablet PO 04/27/23 16:37 650 mg ONCE ONE Administration Lidocaine HCl 5 ml 04/27/23 17:06 04/27/23 17:14 Lidocaine Hcl 1 % Mpf 5 Ml Vial SUBCUT 04/27/23 17:07 5 ml ONCE ONE Administration Procedures Laceration Laceration 1: Site: scalp Side (If applicable): right Size (cm): 3 Description: linear Depth: simple, single layer Local Anesthetic: lidocaine 1% Amount of anesthesia used (mL): 5 Pre-repair: wound explored Size (cm): other (Staple) Number of sutures: 8 Medical Decision Making Differential Diagnosis Differential Diagnoses: The differential diagnosis associated with the presentation includes (Traumatic intracranial bleed, scalp laceration, cervical spine injury, thoracic spine injury, electrolyte derangement, dehydration, severe anemia.) Admission/Observation Consideration of admission/observation: Escalation of care including admission/observation considered Lab Data MDM Lab Attestation statement: I reviewed the patient's lab results. 04/27/23 14:22 04/27/23 14:22 Labs: Lab Results 04/27/23 Range/Units 14:22 WBC 6.7 (4.8-10.8) X10*3/uL RBC 3.58 L D (4.60-5.80) X10*6/uL Hgb 12.1 L D (14.0-18.0) g/dl Hct 34.1 L D (42.0-52.0) % MCV 95.3 (80.0-98.0) fL MCH 33.8 H (27.0-33.0) pg MCHC 35.5 (31.0-36.0) g/dl RDW 13.7 (11.0-16.0) % Plt Count 123 L D (160-400) X10*3/uL MPV 9.3 L (9.4-12.4) fL Immature Gran % (Auto) 0.7 H (0.0-0.4) % Neut % (Auto) 73.1 H (45-73) % Lymph % (Auto) 20.1 (20-40) % [place] % (Auto) 4.2 (2-11) % Eos % (Auto) 1.3 (0-4) % Baso % (Auto) 0.6 (0-2) % Lymph # (Auto) 1.4 (1.2-4.9) X10*3/uL [place] # (Auto) 0.3 (0.1-1.2) X10*3/uL Eos # (Auto) 0.1 (0.0-0.4) X10*3/uL Baso # (Auto) 0.0 (0.0-0.2) X10*3/uL Abs Immat Gran (auto) 0.05 H (0.00-0.03) X10*3/uL Absolute Neuts (auto) 4.9 (2.0-8.3) x10*3/uL Absolute Nucleated RBC 0.000 (0.0-0.012) X10*3/uL Nucleated RBC % (auto) 0.0 (0.0-0.2) /100WBC PT 14.0 H (11.1-13.3) SEC INR 1.2 H (0.9-1.1) Sodium 139 (135-145) mmol/L Potassium 4.4 (3.3-5.1) mmol/L Chloride 109 H (96-108) mmol/L Carbon Dioxide 21 L (22-29) mmol/L Anion Gap 13 (12-20) BUN 26 H (9-16) mg/dL Creatinine 1.23 (0.5-1.4) mg/dL Estim Creat Clear Calc 47.9 Estimated GFR 56 Random Glucose 132 H (60-115) mg/dL Calcium 9.2 D (8.4-10.2) mg/dL Total Bilirubin 1.1 H (0.0-1.0) mg/dL Direct Bilirubin 0.4 (0.0-0.5) mg/dL AST 14 (5-37) U/L ALT 10 (0-40) U/L Alkaline Phosphatase 85 (39-117) U/L Troponin I High Sens < 2.7 (<3.5-35.0) ng/L B-Natriuretic Peptide 41 (<100) pg/mL Total Protein 6.7 (6.5-8.0) g/dL Albumin 4.1 (3.5-5.0) g/dL Lipase 11 (8-78) U/L Influenza Type A (PCR) NEGATIVE (Negative) Influenza Type B (PCR) NEGATIVE (Negative) RSV RNA Qual (PCR) NEGATIVE (Negative) SARS-CoV-2 RNA (RT-PCR) NEGATIVE (Negative) Independent Interpretation I performed an independent interpretation of an: Plain X-Ray (Thoracic spine: Degenerative disc changes throughout dorsal spine. No visible acute fracture, dislocation or subluxation seen. ) and CT Scan (Head/C-spine: No intracranial bleed, no C-spine injury.) Radiology Impression Discussion of test interpretation with radiology: I have reviewed the radiologist's reading. (1. No acute intracranial process seen. 2. Moderate cerebral volume loss. 3. Chronic bilateral maxillary sinus inflammatory changes. 4. Degenerative facet joint arthropathy. No visible acute fracture or dislocation seen. ) Discharge Plan Discharge Clinical Impression: Accident due to mechanical fall without injury, Laceration of scalp, Contusion of thoracic spine Patient Disposition: Still a Patient Instructions: Fall Prevention (ED) Additional Instructions: You have 8 black in your scalp that will need to be removed in 7-10 days you can return to the emergency department or contact your PCP. Prescriptions: No Action latanoprost 0.005 % drops 1 drp ophthalmic (eye) BID atorvastatin 20 mg tablet 20 mg PO DAILY tamsulosin 0.4 mg capsule 0.4 mg PO DAILY metformin 1,000 mg tablet 1,000 mg PO BID losartan 25 mg tablet 25 mg PO DAILY dorzolamide-timolol 22.3-6.8 mg/mL drops 1 drp ophthalmic (eye) BID bupropion HCl 300 mg tablet extended release 24 hr 300 mg PO DAILY ramelteon 8 mg tablet 8 mg PO BEDTIME Alphagan P 0.1 % drops 1 drp ophthalmic (eye) BEDTIME insulin degludec [Tresiba FlexTouch U-100] 100 unit/mL (3 mL) insulin pen 20 unit subcut DAILY Rhopressa 0.02 % drops 1 drp ophthalmic (eye) BEDTIME Trulicity 3 mg/0.5 mL pen injector 3 mg subcut QWEEK enoxaparin 40 mg/0.4 mL Syringe 40 mg subcut Q24H 42 Days Qty: 16.8 0RF polyethylene glycol 3350 17 gram Powder In Packet 17 g PO DAILY PRN (Reason: constipation ) Qty: 30 0RF docusate sodium 100 mg Capsule 100 mg PO BEDTIME Qty: 30 0RF oxycodone 5 mg Tablet 5 mg PO Q6H PRN (Reason: Pain, Severe (Pain Scale 7-10)) Qty: 12 0RF Rx Instructions: Partial Fill upon patient request.
[2023-04-27 14:18] VITALS: BP 169/64; PULSE 65; RESP 17; TEMP 36.9; O2SAT 99; BMI 28.8
[2023-04-27 14:27] LABS: MANUAL DIFF FLAG NO
[2023-04-27 14:32] LABS: Basophils Percent Auto 0.6 % (0-2); Eosinophils Absolute Auto 0.1 X10*3/uL (0.0-0.4); Eosinophils Percent Auto 1.3 % (0-4); Hematocrit 34.1 % (42.0-52.0); Hemoglobin 12.1 g/dl (14.0-18.0); Imm Gran Abs Auto 0.05 X10*3/uL (0.00-0.03); Imm Gran Pct Auto 0.7 % (0.0-0.4); Lymphocytes Absolute Auto 1.4 X10*3/uL (1.2-4.9); Lymphocytes Percent Auto 20.1 % (20-40); Mean Corpuscular HGB Conc 35.5 g/dl (31.0-36.0); Mean Corpuscular Hemoglobin 33.8 pg (27.0-33.0); Mean Corpuscular Volume 95.3 fL (80.0-98.0); Mean Platelet Volume 9.3 fL (9.4-12.4); Monocytes Absolute Auto 0.3 X10*3/uL (0.1-1.2); Monocytes Percent Auto 4.2 % (2-11); Neutrophils Absolute Auto 4.9 x10*3/uL (2.0-8.3); Neutrophils Percent Auto 73.1 % (45-73); Platelet Count 123 X10*3/uL (160-400); Red Blood Count 3.58 X10*6/uL (4.60-5.80); Red Cell Distribution Width 13.7 % (11.0-16.0); White Blood Count 6.7 X10*3/uL (4.8-10.8)
[2023-04-27 14:35] LABS: INTERNATIONAL NORM RATIO 1.2 (0.9-1.1)
[2023-04-27 14:49] LABS: Alanine Aminotransferase 10 U/L (0-40); Albumin Level 4.1 g/dL (3.5-5.0); Alkaline Phosphatase 85 U/L (39-117); Anion Gap 13 (12-20); Aspartate Amino Transferase 14 U/L (5-37); Bilirubin Direct 0.4 mg/dL (0.0-0.5); Bilirubin Total 1.1 mg/dL (0.0-1.0); Blood Urea Nitrogen 26 mg/dL (9-16); Calcium 9.2 mg/dL (8.4-10.2); Carbon Dioxide 21 mmol/L (22-29); Chloride 109 mmol/L (96-108); Creatinine Clr Calc Pharmacy 47.9; Estimated Glomerular Filt Rate 56; Glucose Random 132 mg/dL (60-115); Lipase 11 U/L (8-78); Potassium 4.4 mmol/L (3.3-5.1); Sodium 139 mmol/L (135-145); Total Protein 6.7 g/dL (6.5-8.0)
[2023-04-27 14:51] LABS: B Type Natriuretic Peptide 41 pg/mL (<100)
[2023-04-27 14:52] LABS: Troponin-I High Sensitivity < 2.7 ng/L (<3.5-35.0)
--- NOTE | 2023-04-27 14:58 | PC.NURSE ---
Assumed care of patient at 1445, patient appears to be in no apparent distress, awaiting imaging. Pt does not have C-collar present stating the doctor took it off . Pt endorses lower back pain and some neck pain. Pt is alert and oriented x4, skin pwd, respirations even and unlabored.
--- NOTE | 2023-04-27 15:06 | PC.NURSE ---
PT IS A/O X 4 NO SOB/ANKIT NOTED S/P FALL AT 12 NOON TODAY. PT STATES THAT HE WAS AT HIS DESK, GOT UP AND WAS TRYING TO SIT BACK DOWN WHEN THE CHAIR SLIDE FROM UNDER HIM. PT HAS A LAC TO POSTERIOR HEAD. PT C-COLLAR IS NOTED TO HE ON THE CHAIR AT THE BEDSIDE. PT AWARE OF PLAN OF CARE. WILL CONTINUE TO MONITOR.
[2023-04-27 15:30] LABS: Influenza A PCR NEGATIVE (Negative); Influenza B PCR NEGATIVE (Negative); Resp Syncy Virus RNA Qual PCR NEGATIVE (Negative); SARS COV2 PCR INHOUSE NEGATIVE (Negative)
[2023-04-27 16:00] VITALS: BP 173/63; PULSE 61; RESP 16; TEMP 36.8; O2SAT 100
[2023-04-27] MEDS: Acetaminophen 325 MG TABLET 650 MG PO (17:01)
--- NOTE | 2023-04-27 17:06 | MHC.EDTECH ---
Cleaned patients open wound upon Dr's request.
[2023-04-27] MEDS: Lidocaine HCl 1 % MPF 5 ML VIAL SUBCUT (17:14)
--- NOTE | 2023-04-27 17:30 | PC.NURSE ---
pt has a laceration on right side of the head measuring about 1.5 inches. Bleeding controlled at this time
[2023-04-27 18:00] VITALS: BP 163/62; PULSE 57; RESP 17; TEMP 36.8; O2SAT 100
--- NOTE | 2023-04-27 18:52 | PC.NURSE ---
This RN and Adamaris, home appliance technician attempted to ambulate patient was able to stand up with a one assist but was very shaky. Pt was unable to ambulate more than a foot from the bed.Pt repositioned back into bed. MD Sandro olivares
--- NOTE | 2023-04-27 19:22 | MHC.CM.ED ---
Received CM consult from Dr. Jo. Pt is sleeping. Chart review: pt lives at [facility]. Lives alone. Uses a walker. Pt has had multiple falls recently. Currently attends outpatient PT. HCP on file. Son/HCP Giovani Price ([phone]). 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 Has Medicare and [facility] Indemnity plan. PT consult is pending. PCP is unknown at this time. Will complete assessment when patient wakes.
--- NOTE | 2023-04-27 19:41 | MHC.EDTECH ---
Assist patient with a urinal and took pant and underwear off as they were wet with urine.
[2023-04-27 19:51] VITALS: BP 172/70; PULSE 57; RESP 20; TEMP 36.8; O2SAT 100
--- NOTE | 2023-04-27 21:29 | MHC.CM.ED ---
CM met with patient at the request of Dr. Jo. A&Ox4. 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 Man lives in independent living at [facility]. He lives alone. Has a horticulture worker twice a week. No longer drives due to glaucoma. Takes [facility] [employer] transportation/[facility] transportation and [employer]. Dinner is provided by [employer]. Pt is currently attending outpatient PT at [facility]. PT is pending. Pt is agreeable to [facility] if recommended. PCP is Uli Martinez. Referrals made to [facility] pending PT assessment. CM will follow for discharge planning.
--- NOTE | 2023-04-27 22:00 | PC.NURSE ---
pt was eating ice cream spilled on gown. new gown provided. pt changed over to hospital gown. resting comfortably. bed alarm on. call cardenas within reach.
[2023-04-27 22:40] VITALS: BP 183/69; PULSE 63; RESP 17; TEMP 36.4; O2SAT 100
[2023-04-28 03:15] VITALS: BP 173/63; PULSE 54; RESP 16; TEMP 36.5; O2SAT 99
[2023-04-28 03:23] LABS: Appearance Urine Clear; Color Urine Yellow; Glucose Urine UA 100 mg/dL (Negative); Leukocyte Esterase Urine Negative (Negative); Nitrite Urine Negative (Negative); PH 5.5 (5.0-9.0); Specific Gravity - Urine 1.015 (1.005-1.025); UMIC TRIGGER UACC YES; Urine Blood Negative (Negative); Urine Ketones Negative (Negative); Urine Protein 30 (1+) mg/dL (Neg-Trace)
[2023-04-28 03:34] LABS: Bacteria Urine None Seen (None Seen); Hyaline Casts Urine 0-2 /LPF (0-2); RBC Urine 0-2 /HPF (0-2); Squamous Epithelial Cell Urine 0-2 /HPF (0-2); WBC Urine 0-5 /HPF (0-5)
--- NOTE | 2023-04-28 03:37 | MHC.EDTECH ---
Assisted pt to sit at side of bed to use urinal. Pt unsuccessful of using urinal and urinated all over bed and floor. Complete bedding change done and pt gown changed. Repositioned in bed and vitals updated. RN aware
[2023-04-28 07:46] VITALS: BP 173/63; PULSE 54; O2SAT 99
[2023-04-28 07:49] VITALS: BP 130/72; PULSE 56; RESP 16; TEMP 36.8; O2SAT 100
--- NOTE | 2023-04-28 07:49 | PC.NURSE ---
patient sitting up in bed eating breakfast, patient is alert and oriented, skin dry and intact, VSS. respirations equal and unlabored
--- NOTE | 2023-04-28 09:09 | MHC.CM.ED ---
Patient remains in ER. Physical therapy eval completed. Home with services recommended. Met with patient in regards to discharge planning. Patient has not been active with any [facility]NA in the past. Referral made to [facility]. They are not able to see patient until Monday. Referral broadcasted at this time to see if someone is able to start care sooner. Lyft will be arranged for patient. Patient, Yani MARRERO and Richa TOUSSAINT aware. Continue to monitor for d/c needs.
== END 2023-04-28 10:21 | disposition home or self-care (01) ==
PROVIDERS: Emergency Provider Emergency Medicine; PCP Internal Medicine
DX: S20.229A Contusion of unspecified back wall of thorax, initial encounter (principal); S01.01XA Laceration without foreign body of scalp, initial encounter; R26.2 Difficulty in walking, not elsewhere classified; R51.9 Headache, unspecified; R94.31 Abnormal electrocardiogram [ECG] [EKG]; M54.2 Cervicalgia; R07.89 Other chest pain; R06.02 Shortness of breath; W01.10XA Fall on same level from slipping, tripping and stumbling with subsequent striking against unspecified object, initial encounter; Y93.9 Activity, unspecified; Y92.9 Unspecified place or not applicable; Y99.8 Other external cause status; Z11.52 Encounter for screening for COVID-19; Z20.822 Contact with and (suspected) exposure to COVID-19; Z79.899 Other long term (current) drug therapy
CPT/HCPCS: 0241U; 36415; 70450; 71045; 72070; 72125; 80048; 80076; 81001; 83690; 83880; 84484; 85025; 85610; 93005; 97162; 99285

== ENCOUNTER → 2023-04-27 13:52 | Outpatient (BNV) | payer MEDICARE, OTHER, SELFPAY | PROVIDERS: Emergency Provider Emergency Medicine; Visit Provider Internal Medicine | DX: R55 Syncope and collapse (principal) | CPT/HCPCS: 93010 ==

== ENCOUNTER 2023-05-11 14:00 | Outpatient (RCR) | payer MEDICARE, OTHER, SELFPAY | END 2023-06-26 07:42 | disposition home or self-care (01) | LOC: HO.PT 14:00 | PROVIDERS: PCP Internal Medicine; Visit Provider Physician Assistant | DX: S72.141A Displaced intertrochanteric fracture of right femur, initial encounter for closed fracture (principal) | CPT/HCPCS: 97110; 97116; 97162; 97530 ==

== ENCOUNTER 2023-05-16 20:13 | Emergency (ER) | payer MEDICARE, OTHER, SELFPAY ==
--- NOTE | ~2023-05-16 | XR_ITS ---
EXAMINATION: XR BILATERAL HIPS XR PELVIS CLINICAL INFORMATION: Fall. Pain. Prior right hip replacement. COMPARISON: Right femur radiographs from 02/28/2023. TECHNIQUE: 2 views of each hip (AP and lateral). AP view of the pelvis. FINDINGS: Pelvis: No demonstrated fracture or dislocation of the pelvis. The iliopectineal, ilioischial, and sacral arcuate lines remain intact. The sacroiliac joints remain in normal alignment on the limited view. Normal alignment of the pubic symphysis. No radiopaque foreign bodies. Prominent vascular calcifications. Right Hip: Femoral or an interlocking intertrochanteric nail remain in place without evidence of hardware fracture. Hypertrophic sclerotic change is again noted surrounding the previously demonstrated intertrochanteric fracture that appears to remain not fully united on this exam. No demonstrated new fracture or dislocation of the left hip. The femoral head remains well-seated in the acetabulum. Moderate loss of hip joint space. No lytic osseous lesions. No focal soft tissue swelling. No radiopaque foreign bodies. Left Hip: No demonstrated fracture or dislocation of the left hip. The femoral head remains well-seated in the acetabulum. The trabecular lines remain intact. Moderate loss of hip joint space. Moderate enthesophyte formation along the greater trochanter. No lytic or sclerotic osseous lesions. Similar appearance of moderate dystrophic calcifications surrounding the left hip. No focal soft tissue swelling. No radiopaque foreign bodies. XR/XR hip BI w PEL1V IMPRESSION: 1. No evidence of acute fracture or dislocation of the pelvis or left hip. 2. Similar appearance of a right femoral intertrochanteric nail without evidence of hardware fracture. Hypertrophic sclerotic change surrounding the previously demonstrated intertrochanteric fracture appears to remain not fully united on this exam.
--- NOTE | ~2023-05-16 | CT_ITS ---
EXAMINATION: CT HEAD WITHOUT CONTRAST CT CERVICAL SPINE WITHOUT CONTRAST CLINICAL INFORMATION: Fall. Head injury. COMPARISON: CT head and cervical spine from 04/27/2023. TECHNIQUE: Contiguous axial imaging was performed from the skull base to vertex without intravenous administration of contrast. Contiguous axial imaging was performed from the upper chest through the skull base without intravenous administration of contrast. Coronal and sagittal reformats were obtained at the acquisition workstation. This CT examination was performed using dose optimization techniques as appropriate, variously including the following: *Automated exposure control. *Adjustment of mA and/or kV according to patient size (this includes techniques or standardized protocols for targeted exams where dose is matched to indication/reason for exam; i.e. extremities or head). *Use of iterative reconstruction technique. DLP: 1193 mGy-cm FINDINGS: Head: There is no evidence of acute intracranial hemorrhage or edematous territorial infarction. Maldonado-white matter differentiation is preserved. Scattered and partially confluent hypoattenuation in the periventricular and deep white matter are consistent with moderate microangiopathy. Proportional prominence of the ventricles and sulcal spaces without evidence of obstructive hydrocephalus. No abnormal mass effect or midline shift. No extra-axial fluid collections. No acute soft tissue or osseous abnormalities. Near complete opacification of the bilateral maxillary sinuses with hyperattenuating material centrally. Mild mucosal thickening of the remaining paranasal sinuses. The mastoid air cells and middle ear cavities are clear. Bilateral lens extractions. Cervical Spine: The atlantooccipital and atlantoaxial articulations remain well aligned. Moderate degenerative arthropathy of the atlantodental articulation. Partial straightening of the normal cervical lordosis. Otherwise, there is anatomic alignment of the vertebral bodies and posterior elements. Ankylosis of the C3-C4 facets. No evidence of acute fracture or subluxation. The vertebral body heights are maintained. Moderate degenerative disc disease from C2 to C5. Mild degenerative disc disease at all additional levels. Facet and uncovertebral joint arthropathy leads to osseous encroachment on the neural foramina from C3-C6. Bridging anterior osteophytosis from C4-T3. There is no prevertebral soft tissue swelling. The thyroid gland and remaining cervical soft tissues are within normal limits. The lung apices demonstrate no abnormalities. CT/CT cervical spine wo IV con IMPRESSION: 1. No evidence of acute intracranial hemorrhage or edematous territorial infarction. 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 2. No evidence of acute fracture or traumatic subluxation of the cervical spine. Moderate multilevel degenerative spondyloarthropathy of the cervical spine.
[2023-05-16 20:21] VITALS: BP 135/59; PULSE 72; O2SAT 97
[2023-05-16 20:47] VITALS: BP 121/47; PULSE 70; RESP 20; TEMP 36.3; O2SAT 96; BMI 28.1
[2023-05-16 21:45] LABS: MANUAL DIFF FLAG NO
[2023-05-16 21:46] LABS: Basophils Percent Auto 0.3 % (0-2); Eosinophils Absolute Auto 0.2 X10*3/uL (0.0-0.4); Eosinophils Percent Auto 3.3 % (0-4); Hematocrit 30.7 % (42.0-52.0); Hemoglobin 10.9 g/dl (14.0-18.0); Imm Gran Abs Auto 0.02 X10*3/uL (0.00-0.03); Imm Gran Pct Auto 0.3 % (0.0-0.4); Lymphocytes Absolute Auto 1.4 X10*3/uL (1.2-4.9); Lymphocytes Percent Auto 20.3 % (20-40); Mean Corpuscular HGB Conc 35.5 g/dl (31.0-36.0); Mean Corpuscular Hemoglobin 33.2 pg (27.0-33.0); Mean Corpuscular Volume 93.6 fL (80.0-98.0); Mean Platelet Volume 9.1 fL (9.4-12.4); Monocytes Absolute Auto 0.4 X10*3/uL (0.1-1.2); Monocytes Percent Auto 6.2 % (2-11); Neutrophils Absolute Auto 4.6 x10*3/uL (2.0-8.3); Neutrophils Percent Auto 69.6 % (45-73); Platelet Count 134 X10*3/uL (160-400); Red Blood Count 3.28 X10*6/uL (4.60-5.80); Red Cell Distribution Width 13.9 % (11.0-16.0); White Blood Count 6.6 X10*3/uL (4.8-10.8)
[2023-05-16] MEDS: Acetaminophen 325 MG TABLET 975 MG PO (21:46)
--- NOTE | 2023-05-16 21:53 | ED_ITS ---
HPI - Fall General Chief Complaint: Fall Stated Complaint: tripped & lowered himself to ground,from SNF Time Seen by Provider: 05/16/23 20:23 Source: patient Mode of arrival: EMS Limitations: no limitations History of Present Illness HPI Narrative: Patient is an 87-year-old male who presents emergency department via EMS he is coming from [facility]. He reports that while walking his walker got caught in the rug, resulting in him falling backwards. By his account he lowered himself to the ground. He reported initially to nursing staff that there was no head strike or loss of consciousness. Upon my questioning he does admit that he did land entirely on his back including his head but states that he did not ?hit his head very hard?. He currently denies any headache, neck pain, dizziness, lightheadedness. He reports having pain to the right lower back/hip, and does admit to having surgery on the hip and August of 2022. He denies any numbness or tingling. He denies any bladder or bowel dysfunction at this time. He is requesting Tylenol for pain management. Related Data Home Medications ?Medication ?Instructions ?Recorded ?Confirmed atorvastatin 20 mg tablet 20 mg PO DAILY 08/22/22 08/22/22 brimonidine 0.1 % eye drops 1 drp ophthalmic (eye) BEDTIME 08/22/22 08/22/22 (Alphagan P) bupropion HCl 300 mg 24 hr tablet, 300 mg PO DAILY 08/22/22 08/22/22 extended release dorzolamide 22.3 mg-timolol 6.8 1 drp ophthalmic (eye) BID 08/22/22 08/22/22 mg/mL eye drops dulaglutide 3 mg/0.5 mL 3 mg subcut QWEEK 08/22/22 08/22/22 subcutaneous pen injector (Trulicity) insulin degludec 100 unit/mL (3 20 unit subcut DAILY 08/22/22 08/22/22 mL) subcutaneous pen (Tresiba FlexTouch U-100 insulin) latanoprost 0.005 % eye drops 1 drp ophthalmic (eye) BID 08/22/22 08/22/22 losartan 25 mg tablet 25 mg PO DAILY 08/22/22 08/22/22 metformin 1,000 mg tablet 1,000 mg PO BID 08/22/22 08/22/22 netarsudil 0.02 % eye drops 1 drp ophthalmic (eye) BEDTIME 08/22/22 08/22/22 (Rhopressa) ramelteon 8 mg tablet 8 mg PO BEDTIME 08/22/22 08/22/22 tamsulosin 0.4 mg capsule 0.4 mg PO DAILY 08/22/22 08/22/22 Previous Rx's ?Medication ?Instructions ?Recorded docusate sodium 100 mg capsule 100 mg PO BEDTIME #30 caps 08/25/22 enoxaparin 40 mg/0.4 mL 40 mg (0.4 mL) subcut Q24H 42 days 08/25/22 subcutaneous syringe #16.8 mL oxycodone 5 mg tablet 5 mg PO Q6H PRN Pain, Severe (Pain 08/25/22 Scale 7-10) #12 tabs polyethylene glycol 3350 17 gram 17 g PO DAILY PRN constipation 08/25/22 oral powder packet #30 ea Allergies Allergy/AdvReac Type Severity Reaction Status Date / Time No Known Allergies Allergy Verified 05/16/23 20:48 Review of Systems 2 Review of Systems: Yes all other systems are reviewed and are negative PMFSH Past Medical History Attestation statement: The following information was validated with the patient. Source: old records reviewed Medical History Diabetes Hyperlipidemia Glaucoma Hypertension Social History Social History Housing: Assisted Living Facility Do you presently have visiting nurse or other home services: No Alcohol intake: current Alcohol intake frequency: a few times a week Alcohol type: wine and hard liquor Patient Tobacco Use Status: Never used Tobacco Advance Directives: Yes Advance Directives on File: Yes Advance Directives Date on File: 08/26/22 service: No Physical Exam 2 Vital Signs: Vital Signs: Last Vital Signs Temp 98.7 F 05/16/23 23:38 Pulse 64 05/16/23 23:38 Resp 16 05/16/23 23:38 BP 148/54 H 05/16/23 23:38 Pulse Ox 97 05/16/23 23:38 O2 Del Method Room Air 05/16/23 23:38 BMI result Body Mass Index 28.1 Appearance: Alert.?Oriented to person, place and time. No acute distress.?Normal affect. Head: Normocephalic, atraumatic Eyes: Pupils equal, round and reactive to light.? ENT: Pharynx normal.??TM normal bilaterally Neck: Normal inspection.? Neck supple.??No midline cervical spine tenderness, step-offs, deformities CVS: Heart sounds normal. Normal heart rate and rhythm.? Pulses normal.?? Respiratory: No respiratory distress.? Lung sounds clear to auscultation bilaterally?? Abdomen: Soft and non-tender. Normoactive bowel sounds. Skin: Skin warm and dry.? Normal skin color.? Back: No midline lumbar spine tenderness, step-offs, deformities. Tenderness upon palpation over right paraspinal region/SI joint and into right hip Extremities: No lower extremity edema.? Neuro: Moves all extremities spontaneously. Sensation intact bilaterally. CN II- XII intact. No focal neuro deficits. Ambulates with normal steady gait. Course Reevaluation(s) Reevaluation #1: CMP indicates mild ORION, patient to receive 1L NS IVF Time: 23:18 Reevaluation #2: CT head is without acute intracranial abnormality, no acute fracture subluxation in the cervical spine, multilevel degenerative spondyloarthropathy is present. XR of the hip/pelvis is without acute pathology. Ambulatory trial successful, ambulatory with use of walker without complication. He does express concern about safely being able to get into his home at this hour at [place], placed in physician observation pending case management assistance in the morning for safe disposition. Orders placed for repeat BMP in the morning Time: 01:47 Medications Administered Discontinued Medications Generic Name Dose Route Start Last Admin Trade Name Ronnyq PRN Reason Stop Dose Admin Acetaminophen 975 mg 05/16/23 21:09 05/16/23 21:46 Acetaminophen 325 Mg Tablet PO 05/16/23 21:10 975 mg ONCE ONE Administration Sodium Chloride 1,000 mls @ 999 mls/hr 05/16/23 23:30 05/17/23 01:29 Ns IV 05/17/23 00:30 Infused .Q1H1M AISHA Infusion Medical Decision Making Medical Decision Making [facility] Narrative: Patient is an 87-year-old male with past medical history of diabetes, hyperlipidemia, hypertension, glaucoma who presents emergency department for evaluation of lower back/right hip pain after a reported mechanical fall. Endorsing a mild head strike but no loss of consciousness. Given age will obtain CT of the head/cervical spine to exclude ICH, SDH, fracture, subluxation in addition to XR of the right hip and pelvis to evaluate for fracture/dislocation. He is amenable to Tylenol for pain management at this time. Differential Diagnosis Differential Diagnoses: The differential diagnosis associated with the presentation includes (See narrative above) Lab Data MDM Lab Attestation statement: I reviewed the patient's lab results. CBC is without leukocytosis, normocytic anemia that does not meet transfusion criteria, thrombocytopenia which is increased from baseline. CMP revealing a mild ORION. 05/16/23 21:40 05/16/23 21:40 Labs: Lab Results 05/16/23 Range/Units 21:40 WBC 6.6 (4.8-10.8) X10*3/uL RBC 3.28 L (4.60-5.80) X10*6/uL Hgb 10.9 L (14.0-18.0) g/dl Hct 30.7 L (42.0-52.0) % MCV 93.6 (80.0-98.0) fL MCH 33.2 H (27.0-33.0) pg MCHC 35.5 (31.0-36.0) g/dl RDW 13.9 (11.0-16.0) % Plt Count 134 L (160-400) X10*3/uL MPV 9.1 L (9.4-12.4) fL Immature Gran % (Auto) 0.3 (0.0-0.4) % Neut % (Auto) 69.6 (45-73) % Lymph % (Auto) 20.3 (20-40) % Hoke % (Auto) 6.2 (2-11) % Eos % (Auto) 3.3 (0-4) % Baso % (Auto) 0.3 (0-2) % Lymph # (Auto) 1.4 (1.2-4.9) X10*3/uL Hoke # (Auto) 0.4 (0.1-1.2) X10*3/uL Eos # (Auto) 0.2 (0.0-0.4) X10*3/uL Baso # (Auto) 0.0 (0.0-0.2) X10*3/uL Abs Immat Gran (auto) 0.02 (0.00-0.03) X10*3/uL Absolute Neuts (auto) 4.6 (2.0-8.3) x10*3/uL Absolute Nucleated RBC 0.000 (0.0-0.012) X10*3/uL Nucleated RBC % (auto) 0.0 (0.0-0.2) /100WBC Sodium 139 (135-145) mmol/L Potassium 4.3 (3.3-5.1) mmol/L Chloride 107 (96-108) mmol/L Carbon Dioxide 24 (22-29) mmol/L Anion Gap 12 (12-20) BUN 26 H (9-16) mg/dL Creatinine 1.47 H (0.5-1.4) mg/dL Estim Creat Clear Calc 37.3 Estimated GFR 45 Random Glucose 174 H (60-115) mg/dL Calcium 8.6 D (8.4-10.2) mg/dL Total Bilirubin 0.8 (0.0-1.0) mg/dL AST 15 (5-37) U/L ALT 10 (0-40) U/L Alkaline Phosphatase 76 (39-117) U/L Total Protein 6.2 L (6.5-8.0) g/dL Albumin 3.7 (3.5-5.0) g/dL Independent Interpretation I performed an independent interpretation of an: CT Scan (No ICH, SDH, no fracture) Radiology Impression Discussion of test interpretation with radiology: I have reviewed the radiologist's reading. Radiologist Impression: XR/XR hip BI w PEL1V IMPRESSION: 1. No evidence of acute fracture or dislocation of the pelvis or left hip. 2. Similar appearance of a right femoral intertrochanteric nail without evidence of hardware fracture. Hypertrophic sclerotic change surrounding the previously demonstrated intertrochanteric fracture appears to remain not fully united on this exam.. CT/CT cervical spine wo IV con IMPRESSION: 1. No evidence of acute intracranial hemorrhage or edematous territorial infarction. 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 2. No evidence of acute fracture or traumatic subluxation of the cervical spine. Moderate multilevel degenerative spondyloarthropathy of the cervical spine. Independent Historian Clinical information obtained from an independent historian. History obtained from or confirmed by: EMS CT/CT head/brain wo IV con IMPRESSION: 1. No evidence of acute intracranial hemorrhage or edematous territorial infarction. 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 2. No evidence of acute fracture or traumatic subluxation of the cervical spine. Moderate multilevel degenerative spondyloarthropathy of the cervical spine. External Record Review External record reviewed: Outpatient record Discharge Plan Discharge Clinical Impression: Lumbar strain Patient Disposition: Still a Patient Additional Instructions: You can takeTylenol 500 mg, 2 tablets (1,000mg) every 4-6 hours as needed for pain, but not to exceed 3 doses daily (3,000mg).? Prescriptions: No Action latanoprost 0.005 % drops 1 drp ophthalmic (eye) BID atorvastatin 20 mg tablet 20 mg PO DAILY tamsulosin 0.4 mg capsule 0.4 mg PO DAILY metformin 1,000 mg tablet 1,000 mg PO BID losartan 25 mg tablet 25 mg PO DAILY dorzolamide-timolol 22.3-6.8 mg/mL drops 1 drp ophthalmic (eye) BID bupropion HCl 300 mg tablet extended release 24 hr 300 mg PO DAILY ramelteon 8 mg tablet 8 mg PO BEDTIME Alphagan P 0.1 % drops 1 drp ophthalmic (eye) BEDTIME insulin degludec [Tresiba FlexTouch U-100] 100 unit/mL (3 mL) insulin pen 20 unit subcut DAILY Rhopressa 0.02 % drops 1 drp ophthalmic (eye) BEDTIME Trulicity 3 mg/0.5 mL pen injector 3 mg subcut QWEEK enoxaparin 40 mg/0.4 mL Syringe 40 mg subcut Q24H 42 Days Qty: 16.8 0RF polyethylene glycol 3350 17 gram Powder In Packet 17 g PO DAILY PRN (Reason: constipation ) Qty: 30 0RF docusate sodium 100 mg Capsule 100 mg PO BEDTIME Qty: 30 0RF oxycodone 5 mg Tablet 5 mg PO Q6H PRN (Reason: Pain, Severe (Pain Scale 7-10)) Qty: 12 0RF Rx Instructions: Partial Fill upon patient request. Print Language: Latvian
[2023-05-16 22:01] LABS: Alanine Aminotransferase 10 U/L (0-40); Albumin Level 3.7 g/dL (3.5-5.0); Alkaline Phosphatase 76 U/L (39-117); Anion Gap 12 (12-20); Aspartate Amino Transferase 15 U/L (5-37); Bilirubin Total 0.8 mg/dL (0.0-1.0); Blood Urea Nitrogen 26 mg/dL (9-16); Calcium 8.6 mg/dL (8.4-10.2); Carbon Dioxide 24 mmol/L (22-29); Chloride 107 mmol/L (96-108); Creatinine Clr Calc Pharmacy 37.3; Estimated Glomerular Filt Rate 45; Glucose Random 174 mg/dL (60-115); Potassium 4.3 mmol/L (3.3-5.1); Sodium 139 mmol/L (135-145); Total Protein 6.2 g/dL (6.5-8.0)
[2023-05-16 23:38] VITALS: BP 148/54; PULSE 64; RESP 16; TEMP 37.1; O2SAT 97
[2023-05-17] MEDS: 0.9 % Sodium Chloride 1,000 ML 999 ML IV (00:07)
[2023-05-17 02:00] VITALS: BP 139/60; PULSE 62; RESP 12; TEMP 36.6; O2SAT 99
[2023-05-17 03:44] VITALS: BP 140/62; PULSE 57; RESP 16; TEMP 36.7; O2SAT 98
[2023-05-17 06:00] VITALS: BP 137/58; PULSE 69; RESP 12; TEMP 36.2; O2SAT 96
--- NOTE | 2023-05-17 07:37 | PC.NURSE ---
this RN resumed care of pt at this time. a&ox4. vss and up to date. pt repositioned/resting comfortably in no apparent distress. labs obtained/sent to lab. results pending. no sob/wob noted. respirations even and unlabored. plan of care ongoing.
[2023-05-17 07:52] LABS: Anion Gap 11 (12-20); Blood Urea Nitrogen 21 mg/dL (9-16); Calcium 8.7 mg/dL (8.4-10.2); Carbon Dioxide 25 mmol/L (22-29); Chloride 110 mmol/L (96-108); Creatinine Clr Calc Pharmacy 46.1; Estimated Glomerular Filt Rate 58; Glucose Random 71 mg/dL (60-115); Potassium 3.9 mmol/L (3.3-5.1); Sodium 142 mmol/L (135-145)
[2023-05-17 08:07] VITALS: BP 145/75; PULSE 56; RESP 16; TEMP 36.5; O2SAT 100
[2023-05-17 09:48] LABS: COVID-19 Test Negative (Negative); IDNOW Serial# 08D9AD1C
--- NOTE | 2023-05-17 09:55 | PC.NURSE ---
urine obtained/sent to lab. PT eval completed. pt ambulates steadily w/ a walker. no 1:1 assist needed. plan of care ongoing.
[2023-05-17 09:59] LABS: Appearance Urine Clear; Color Urine Yellow; Glucose Urine UA Negative (Negative); Leukocyte Esterase Urine Negative (Negative); Nitrite Urine Negative (Negative); PH 6.5 (5.0-9.0); Specific Gravity - Urine 1.015 (1.005-1.025); Urine Blood Negative (Negative); Urine Ketones Negative (Negative); Urine Protein Negative (Neg-Trace)
--- NOTE | 2023-05-17 11:44 | MHC.CM.ED ---
Received case management consult overnight. Patient came to the ER due to a mechanical fall. Work up essentially negative. Physical therapy eval completed. Home therapy is recommended. Met with patient in regards to discharge planning. Patient lives alone at [facility], ambulates with a walker and was recently active with [facility] and physical therapy. PCP is Uli Arevalo. Copy of HCP verified to be on file. Patient requesting referral back to [facility]. Referral made via [facility]. Lyft ordered to transport patient home. Patient, Shira MARRERO and Sissy TOUSSAINT aware. Continue to monitor for d/c needs.
--- NOTE | 2023-05-17 11:50 | PC.NURSE ---
Addendum entered by Sabrina Feliciano 05/17/23 13:23: [facility] is not able to accept patient. [facility] is able to accept. Original Note: CM arranged transportation back home via lyft at this time. IV removed. pt being d/c'd.
[2023-05-17 11:51] VITALS: BP 145/75; PULSE 56; RESP 16; TEMP 36.5; O2SAT 100
== END 2023-05-17 11:51 | disposition still patient (30) ==
PROVIDERS: Nurse Practitioner Family; Emergency Provider Internal Medicine; PCP Internal Medicine
DX: S39.012A Strain of muscle, fascia and tendon of lower back, initial encounter (principal); S09.90XA Unspecified injury of head, initial encounter; W17.89XA Other fall from one level to another, initial encounter; Y93.9 Activity, unspecified; Y92.9 Unspecified place or not applicable; Y99.9 Unspecified external cause status; I10 Essential (primary) hypertension; E11.9 Type 2 diabetes mellitus without complications; E78.5 Hyperlipidemia, unspecified; M25.551 Pain in right hip; Z79.4 Long term (current) use of insulin; Z79.899 Other long term (current) drug therapy; Z11.52 Encounter for screening for COVID-19
CPT/HCPCS: 36415; 70450; 72125; 73521; 80048; 80053; 81003; 85025; 87635; 96360; 97162; 99285

== ENCOUNTER 2024-03-04 15:45 | Emergency (ER) | payer MEDICARE, OTHER, SELFPAY ==
--- NOTE | ~2024-03-04 | CT_ITS ---
CLINICAL HISTORY: Fall CT cervical spine without contrast Comparison: CT/REG/SR - CT CERVICAL SPINE WO IV CON - 05/16/23 21:15 EDT Findings: Vertebral alignment is within normal limits. Multilevel disc space narrowing and endplate osteophyte formation, as well as facet hypertrophy. No acute fractures or dislocations. No acute findings on limited view of the intracranial contents. No cervical fluid collections or masses. No consolidation or effusion at the lung apices. IMPRESSION: No acute findings. This document has been electronically signed by: Harpreet Brewer MD on 03/04/2024 18:17:46
--- NOTE | ~2024-03-04 | XR_ITS ---
CLINICAL HISTORY: Fall 2 view chest x-ray Comparison: CR/SR - XR CHEST 1V - 04/27/23 14:25 EDT CR/SR - XR CHEST 1V - 08/22/22 04:17 EDT Findings: Median sternotomy. No consolidation or effusion. Heart size is normal. No acute fracture. IMPRESSION: 1. No acute findings. This document has been electronically signed by: Harpreet Brewer MD on 03/04/2024 17:35:15
--- NOTE | ~2024-03-04 | CT_ITS ---
CLINICAL HISTORY: Fall CT head without contrast Comparison: CT/REG/SR - CT HEAD/BRAIN WO IV CON - 05/16/23 21:15 EDT Findings: No intra-axial mass, midline shift, hydrocephalus, or acute hemorrhage. Mild diffuse cerebral volume loss. Mild degree of patchy low-density within the periventricular and subcortical white matter. Severe mucosal thickening within the anterior ethmoid air cells bilaterally. Severe opacification of the bilateral frontal and maxillary sinuses. Mastoids are clear. The orbits are within normal limits. No skull fracture. IMPRESSION: 1. No acute intracranial findings. 2. Sinus disease. This document has been electronically signed by: Harpreet Brewer MD on 03/04/2024 18:19:24
[2024-03-04 16:01] VITALS: BP 140/77; BP 168/78; PULSE 65; PULSE 79; RESP 18; TEMP 37; O2SAT 99; BMI 26.8
--- NOTE | 2024-03-04 16:30 | PC.NURSE ---
keyoana from home s/p unwitnessed fall. pt reports he just finished grocery shopping and was attempting to unlock the door while holding groceries and lost his balance. denies feeling dizzy/lightheaded prior to fall. +headstrike, -loc, -thinners. pt presents in c-collar. EMS reports pt denies neck/back pain. 1 inch lac noted to forehead as well as smaller lac to back of head. bleeding controlled. upon ED arrival - pt a&ox4. vss and up to date. pt currently c/o neck pain/headache s/p fall. neuros intact. PERRLA. affected area cleaned. lac well approximated. pt seen by ED provider. c-collar removed. 10 sutures applied to lac. pt tolerated well. pt on RA w/o difficulty. no sob/wob noted. respirations even/unlabored. plan of care ongoing.
--- NOTE | 2024-03-04 17:09 | PC.NURSE ---
pt to CT at this time.
--- NOTE | 2024-03-04 17:14 | ED.GENADULT ---
HPI - General Adult General Chief complaint: Fall Stated complaint: fall + headtrike, no loc /thinners, head lac Time Seen by Provider: 03/04/24 16:01 History of Present Illness ED Provider: Dr. Stokes HPI narrative: 88 y/o M patient; HTN, HLD, T2DM; presents from home via EMS with report of unwitnessed fall immediately prior to arrival. The patient states he had finished grocery shopping, was holding his groceries, and attempting to unlock his front door. He denies any prodrome. He fell forward striking his head but is uncertain on what. He did not lose consciousness and was able to stand at the scene. He has a large laceration to his right-sided forehead. He is not on anticoagulation. Related Data Home Medications ?Medication ?Instructions ?Recorded ?Confirmed atorvastatin 20 mg tablet 20 mg PO DAILY 08/22/22 08/22/22 brimonidine 0.1 % eye drops 1 drp ophthalmic (eye) BEDTIME 08/22/22 08/22/22 (Alphagan P) bupropion HCl 300 mg 24 hr tablet, 300 mg PO DAILY 08/22/22 08/22/22 extended release dorzolamide 22.3 mg-timolol 6.8 1 drp ophthalmic (eye) BID 08/22/22 08/22/22 mg/mL eye drops dulaglutide 3 mg/0.5 mL 3 mg subcut QWEEK 08/22/22 08/22/22 subcutaneous pen injector (Trulicity) insulin degludec 100 unit/mL (3 20 unit subcut DAILY 08/22/22 08/22/22 mL) subcutaneous pen (Tresiba FlexTouch U-100 insulin) latanoprost 0.005 % eye drops 1 drp ophthalmic (eye) BID 08/22/22 08/22/22 losartan 25 mg tablet 25 mg PO DAILY 08/22/22 08/22/22 metformin 1,000 mg tablet 1,000 mg PO BID 08/22/22 08/22/22 netarsudil 0.02 % eye drops 1 drp ophthalmic (eye) BEDTIME 08/22/22 08/22/22 (Rhopressa) ramelteon 8 mg tablet 8 mg PO BEDTIME 08/22/22 08/22/22 tamsulosin 0.4 mg capsule 0.4 mg PO DAILY 08/22/22 08/22/22 Previous Rx's ?Medication ?Instructions ?Recorded docusate sodium 100 mg capsule 100 mg PO BEDTIME #30 caps 08/25/22 enoxaparin 40 mg/0.4 mL 40 mg (0.4 mL) subcut Q24H 42 days 08/25/22 subcutaneous syringe #16.8 mL oxycodone 5 mg tablet 5 mg PO Q6H PRN Pain, Severe (Pain 08/25/22 Scale 7-10) #12 tabs polyethylene glycol 3350 17 gram 17 g PO DAILY PRN constipation 08/25/22 oral powder packet #30 ea Allergies Allergy/AdvReac Type Severity Reaction Status Date / Time No Known Allergies Allergy Verified 03/04/24 16:01 Review of Systems Review of Systems: Yes all other systems are reviewed and are negative PMFSH Past Medical History Attestation statement: The following information was validated with the patient. Source: old records reviewed Medical History Diabetes Hyperlipidemia Glaucoma Hypertension Social History Social History Housing: Assisted Living Facility Do you presently have visiting nurse or other home services: No Alcohol intake: current Alcohol intake frequency: a few times a week Alcohol type: wine and hard liquor Patient Tobacco Use Status: Never used Tobacco Smoked in Last 30 Days: No Use of substances other than those prescribed or required for medical reasons: No Advance Directives: Yes Advance Directives on File: Yes Advance Directives Date on File: 08/26/22 Do you have a plan to hurt others: No Plan service: No Physical Exam ED Vital Signs: Vital Signs - 24 hr 03/04/24 16:01 Temperature 98.6 F Pulse Rate 65 Respiratory Rate 18 Blood Pressure 140/77 H Pulse Oximetry 99 BMI result Body Mass Index 26.8 Patient is afebrile and hemodynamically stable. Const General: cooperative and no acute distress HENMT Other: Large 5 - 6cm laceration over right forehead into bridge of nose Eyes General: appearance normal, both eyes and all related structures Pupils: Equal, round and reactive pupils present EOM: EOMs intact bilaterally Neck Neck: Yes normal visual inspection, Yes full ROM, Yes supple and No tender Chest Chest palpation & inspection: normal inspection of the chest and normal palpation of entire chest wall Resp Effort & Inspection: normal respiratory effort, able to speak in complete sentences, no cough and no respiratory distress Auscultation: clear to auscultation bilaterally Cardio Rate: regular rate Rhythm: regular rhythm Peripheral pulses: Peripheral pulses 2+ throughout GI Inspection: Yes normal to inspection, No Abdominal wall edema and No distended Palpation (GI): Soft to palpation, not firm, nontender, no guarding and not rigid Auscultation: normal bowel sounds Back/Spine/Pelvis Back: No back tenderness Neuro Cranial nerves: Yes Equal, round and reactive pupils present Course Course Course Narrative: Patient is afebrile and hemodynamically stable. Will update tetanus. Please see procedure note for laceration repair. Contrary to triage note patient does not have any posterior laceration rather had a small area of dried blood. Ordered CT Head/Neck and CXR. Reevaluation(s) Reevaluation #1: CXR unremarkable. CT Cervical Spine unremarkable. CT Head unremarkable. Patient is ambulatory without difficulty. Plan: Discharge to home with PCP followup for suture removal in 5 days Condition: Stable Medications Administered Discontinued Medications Generic Name Dose Route Start Last Admin Trade Name Freq PRN Reason Stop Dose Admin Diphtheria/Tetanus/Acell Pertussis 0.5 ml 03/04/24 17:03 03/04/24 17:22 Diphth,Pertus(Acell),Tet Adult 0.5 Ml Syringe IM 03/04/24 17:04 0.5 ml .ONCE ONE Administration Procedures Laceration Laceration 1: Site: face Side (If applicable): right Size (cm): 6 Description: irregular Depth: simple, single layer Local Anesthetic: lidocaine 1% and with epi Amount of anesthesia used (mL): 4 Pre-repair: wound explored and irrigated extensively Skin layer closed with: nylon Size (cm): 5-0 Number of sutures: 10 Technique: simple, interrupted Medical Decision Making Radiology Impression Discussion of test interpretation with radiology: I have reviewed the radiologist's reading. Radiologist Impression: CLINICAL HISTORY: Fall 2 view chest x-ray Comparison: CR/SR - XR CHEST 1V - 04/27/23 14:25 EDT CR/SR - XR CHEST 1V - 08/22/22 04:17 EDT Findings: Median sternotomy. No consolidation or effusion. Heart size is normal. No acute fracture. IMPRESSION: 1. No acute findings. This document has been electronically signed by: Harpreet Brewer MD on 03/04/2024 17:35:15 CT cervical spine without contrast Comparison: CT/REG/SR - CT CERVICAL SPINE WO IV CON - 05/16/23 21:15 EDT Findings: Vertebral alignment is within normal limits. Multilevel disc space narrowing and endplate osteophyte formation, as well as facet hypertrophy. No acute fractures or dislocations. No acute findings on limited view of the intracranial contents. No cervical fluid collections or masses. No consolidation or effusion at the lung apices. IMPRESSION: No acute findings. This document has been electronically signed by: Harpreet Brewer MD on 03/04/2024 18:17:46 CLINICAL HISTORY: Fall CT head without contrast Comparison: CT/REG/SR - CT HEAD/BRAIN WO IV CON - 05/16/23 21:15 EDT Findings: No intra-axial mass, midline shift, hydrocephalus, or acute hemorrhage. Mild diffuse cerebral volume loss. Mild degree of patchy low-density within the periventricular and subcortical white matter. Severe mucosal thickening within the anterior ethmoid air cells bilaterally. Severe opacification of the bilateral frontal and maxillary sinuses. Mastoids are clear. The orbits are within normal limits. No skull fracture. IMPRESSION: 1. No acute intracranial findings. 2. Sinus disease. This document has been electronically signed by: Harpreet Brewer MD on 03/04/2024 18:19:24 Discharge Plan Discharge Clinical Impression: Laceration of head, Fall Patient Disposition: Home, Self-Care Instructions: Head Laceration (ED) Additional Instructions: You were seen today after a fall in which you hit your head. You had 10 stitches placed in your forehead. These will need to be removed in the next 5 days. Please have these removed with your primary doctor, at urgent care, or you can return to this emergency department. Prescriptions: No Action latanoprost 0.005 % drops 1 drp ophthalmic (eye) BID atorvastatin 20 mg tablet 20 mg PO DAILY tamsulosin 0.4 mg capsule 0.4 mg PO DAILY metformin 1,000 mg tablet 1,000 mg PO BID losartan 25 mg tablet 25 mg PO DAILY dorzolamide-timolol 22.3-6.8 mg/mL drops 1 drp ophthalmic (eye) BID bupropion HCl 300 mg tablet extended release 24 hr 300 mg PO DAILY ramelteon 8 mg tablet 8 mg PO BEDTIME Alphagan P 0.1 % drops 1 drp ophthalmic (eye) BEDTIME insulin degludec [Tresiba FlexTouch U-100] 100 unit/mL (3 mL) insulin pen 20 unit subcut DAILY Rhopressa 0.02 % drops 1 drp ophthalmic (eye) BEDTIME Trulicity 3 mg/0.5 mL pen injector 3 mg subcut QWEEK enoxaparin 40 mg/0.4 mL Syringe 40 mg subcut Q24H 42 Days Qty: 16.8 0RF polyethylene glycol 3350 17 gram Powder In Packet 17 g PO DAILY PRN (Reason: constipation ) Qty: 30 0RF docusate sodium 100 mg Capsule 100 mg PO BEDTIME Qty: 30 0RF oxycodone 5 mg Tablet 5 mg PO Q6H PRN (Reason: Pain, Severe (Pain Scale 7-10)) Qty: 12 0RF Rx Instructions: Partial Fill upon patient request. Print Language: Venezuelan
[2024-03-04] MEDS: Diphth,Pertus(ACell),Tet Adult 0.5 ML SYRINGE IM (17:22)
--- NOTE | 2024-03-04 17:22 | PC.NURSE ---
tetanus shot administered per provider order.
--- NOTE | 2024-03-04 19:25 | PC.NURSE ---
This RN assumed pt care @ 1900. Pt resting in bed quietly, a&ox4, no signs of distress. Plan of care ongoing.
--- OUTSIDE RECORDS SUMMARY | 2024-03-04 20:08 | XMS_ITS | Encounter Summary ---
Author Organization [facility] Address [address] [place] [address] Care Team Providers Care Certified Pest Control Technician Name Role Phone Uli Arevalo MD Primary Care Provider Encounter Details Date Type Department Care Team (Latest Contact Info) Description 12/26/2023 Lab Requisition [facility] - Main Lab [address] [facility] [place] [phone] Uli Arevalo MD 299 [facility] [address] [place] [address] Vitamin B12 deficiency anemia due to intrinsic factor deficiency; Type 2 diabetes mellitus without complications (CMS/HCC) Social History Tobacco Use Types Packs/Day Years Used Date Smoking Tobacco: Never Alcohol Use Standard Drinks/Week Comments Yes 0 (1 standard drink = 0.6 oz pur e alcohol) Sex and Gender Information Value Date Recorded Sex Assigned at Not on file Gender Identity Not on file Sexual Orientation Not on file documented as of this encounter Plan of Treatment Not on file documented as of this encounter Procedures Procedure Name Priority Date/Time Associated Diagnosis Comments FRUCTOSAMINE Routine 12/26/2023 5:59 PM EST Vitamin B12 deficiency anemia due to intrinsic factor deficiency Type 2 diabetes mellitus without complications (CMS/HCC) HEMOGLOBIN A1C Routine 12/26/2023 5:59 PM EST Vitamin B12 deficiency anemia due to intrinsic factor deficiency Type 2 diabetes mellitus without complications (CMS/HCC) VITAMIN B12 Routine 12/26/2023 5:59 PM EST Vitamin B12 deficiency anemia due to intrinsic factor deficiency Type 2 diabetes mellitus without complications (CMS/HCC) documented in this encounter Results * Hemoglobin A1c (12/26/2023 5:59 PM EST) Hemoglobin A1C 5.6 <6.5 % LAB CHEMISTRY METHOD 12/27/2023 1:00 PM EST [facility] Mean Bld Glu Estim. 114 mg/dL LAB CHEMISTRY METHOD 12/27/2023 1:00 PM EST [facility] Blood Venous blood specimen / Unknown 12/26/2023 5:59 PM EST 12/26/2023 6:00 PM EST Uli Arevalo MD LAB BLOOD ORDERABLE S [facility] [address] [place] [address], [place] [phone] * (ABNORMAL) Vitamin B12 (12/26/2023 5:59 PM EST) Vitamin B-12 121(L) 250 - 900 pcg/mL LAB CHEMISTRY METHOD 12/26/2023 7:23 PM EST [facility] Blood Venous blood specimen / Unknown 12/26/2023 5:59 PM EST 12/26/2023 6:00 PM EST Uli Arevalo MD LAB BLOOD ORDERABLE S [facility] [address] [place] [address], [place] [phone] * Fructosamine (12/26/2023 5:59 PM EST) Fructosamine 337 SeeBelow umol /L 12/31/2023 4:19 PM EST [facility] Comment: There is no established reference range for patients aged less than 19 years or greater than 65 years. Test performed at [facility], [address], [place] ??[address] ? [phone] Alexandra Nava MD, PhD - Talent Acquisition Assistant Blood Venous blood specimen / Unknown 12/26/2023 5:59 PM EST 12/26/2023 6:00 PM EST Uli Arevalo MD LAB BLOOD ORDERABLE S [facility] [address] [place] [address] documented in this encounter Visit Diagnoses Diagnosis Vitamin B12 deficiency anemia due to intrinsic factor deficiency Pernicious anemia Type 2 diabetes mellitus without complications (CMS/HCC) documented in this encounter Care Teams Certified Pest Control Technician Relationship Specialty Start Date End Date Uli Arevalo MD [address] [place] [address] PCP - General Internal Medicine 04/13/21 documented as of this encounter
--- OUTSIDE RECORDS SUMMARY | 2024-03-04 20:08 | XMS_ITS | Clinical Summary ---
Author Organization 299 [facility] Address [address] [place] [address] Phone Care Team Providers Care House Coordinator Name Role Phone Uli Arevalo MD Primary Care Provider Encounters Date Type Department Care Team Description 02/01/2024 Lab Requisition [facility] [address] [place] [phone] Uli Arevalo MD Type 2 diabetes mellitus without complications ([facility]/HCC) 01/10/2024 Lab Requisition [facility] [address] [place] [phone] Uli Arevalo MD Type 2 diabetes mellitus without complications ([facility]/HCC) 12/26/2023 Lab Requisition [facility] [address] [place] [phone] Uli Arevalo MD Vitamin B12 deficiency anemia due to intrinsic factor deficiency; Type 2 diabetes mellitus without complications ([facility]/HCC) from Last 3 Months Surgical History Surgery Date Site/Laterality Comments 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 Medical History Medical History Date Comments Hypertension DX:Hypertension Type II diabetes mellitus (CMS/HCC) DX:Type II diabetes mellitus ([facility]) Hyperlipidemia DX:Hyperlipidemi a Coronary artery disease DX:Coron mary artery disease Social History Tobacco Use Types Packs/Day Years Used Date Smoking Tobacco: Never Alcohol Use Standard Drinks/Week Comments Yes 0 (1 standard drink = 0.6 oz pur e alcohol) Sex and Gender Information Value Date Recorded Sex Assigned at Not on file Gender Identity Not on file Sexual Orientation Not on file Obstetrics History Last Filed Vital Signs Vital Sign Reading Time Taken Comments Blood Pressure 130/71 09/06/2023 1:47 PM EDT Pulse 85 09/06/2023 1:47 PM EDT Temperature - - Respiratory Rate - - Oxygen Saturation - - Inhaled Oxygen Concentration - - Weight 91.2 kg (201 lb) 09/06/2023 1:47 PM EDT Height 177.8 cm (5' 10 ) 09/06/2023 1:47 PM EDT Body Mass Index 28.84 09/06/2023 1:47 PM EDT Plan of Treatment Health Maintenance Due Date Last Done Comments Pneumococcal Vaccine: 65+ Years (1 of 2 - PCV) 06/18/1941 Diabetes: Annual Foot Exam 06/18/1945 Diabetes: Annual Retina Eye Exam 06/18/1945 DTaP,Tdap,and Td Vaccines (1 - Tdap) 06/18/1954 Zoster Vaccines (1 of 2) 06/18/1985 RSV Immunization Patients 60+ Years Old (1 - 1-dose 75+ series) 06/18/2010 Cholesterol Screening (Lipid Panel) 01/09/2022 Depression Screening 01/09/2022 Falls Risk Assessment 01/09/2022 Social Influencers of Health Screening 01/09/2022 Medicare Annual Wellness Visit 02/23/2023 02/23/2022 COVID-19 Vaccine ( season) 2023 Influenza Vaccine (#1) 2023 , 10/18/2019, 12/20/2018, Additional history exists Diabetes: Blood Sugar Control Test (HGBA1C) 08/01/2024 02/01/2024, 01/10/2024, 12/26/2023 HIB Vaccines Aged Out No longer eligi ble based on patient's age to complete this topic HPV Vaccines Aged Out No longer eligi ble based on patient's age to complete this topic Hepatitis A Vaccines Aged Out No long er eligible based on patient's age to complete this topic Hepatitis B Vaccines Aged Out No long er eligible based on patient's age to complete this topic IPV Vaccines Aged Out No longer eligi ble based on patient's age to complete this topic MMR Vaccines Aged Out No longer eligi ble based on patient's age to complete this topic Meningococcal ACWY Vaccine Aged Out N o longer eligible based on patient's age to complete this topic RSV Immunization Patients Under 20 months Aged Out No longer eligible based on patient's age to complete this topic Varicella Vaccines Aged Out No longer eligible based on patient's age to complete this topic Procedures Procedure Name Priority Date/Time Associated Diagnosis Comments HEMOGLOBIN A1C Routine 02/01/2024 12:00 AM EST Type 2 diabetes mellitus without complications (CMS/HCC) FRUCTOSAMINE Routine 02/01/2024 12:00 AM EST Type 2 diabetes mellitus without complications (CMS/HCC) HEMOGLOBIN A1C Routine 01/10/2024 12:00 AM EST Type 2 diabetes mellitus without complications (CMS/HCC) FRUCTOSAMINE Routine 01/10/2024 12:00 AM EST Type 2 diabetes mellitus without complications (CMS/HCC) HEMOGLOBIN A1C Routine 12/26/2023 5:59 PM EST Vitamin B12 deficiency anemia due to intrinsic factor deficiency Type 2 diabetes mellitus without complications (CMS/HCC) VITAMIN B12 Routine 12/26/2023 5:59 PM EST Vitamin B12 deficiency anemia due to intrinsic factor deficiency Type 2 diabetes mellitus without complications (CMS/HCC) FRUCTOSAMINE Routine 12/26/2023 5:59 PM EST Vitamin B12 deficiency anemia due to intrinsic factor deficiency Type 2 diabetes mellitus without complications (CMS/HCC) from Last 3 Months Results * Fructosamine (02/01/2024 12:00 AM EST) Only the most recent of3 resultswithin the time period is included. Fructosamine 283 SeeBelow umol /L 02/05/2024 9:50 AM EST [facility] Comment: There is no established reference range for patients aged less than 19 years or greater than 65 years. Test performed at [facility], [address], [place], [place] ??[address] ? [phone] Alexandra Nava MD, PhD - Learning Strategist Blood Venous blood specimen / Unknown 02/01/2024 02/01/2024 5:57 PM EST Uli Arevalo MD LAB BLOOD ORDERABLE [place] [address] * Hemoglobin A1c (02/01/2024 12:00 AM EST) Only the most recent of3 resultswithin the time period is included. Hemoglobin A1C 6.2 <6.5 % LAB CHEMISTRY METHOD 02/01/2024 8:38 PM EST [facility] Mean Bld Glu Estim. 131 mg/dL LAB CHEMISTRY METHOD 02/01/2024 8:38 PM EST [facility] Blood Venous blood specimen / Unknown 02/01/2024 02/01/2024 5:57 PM EST Uli Arevalo MD LAB BLOOD ORDERABLE S Performing Organization Address City/[facility]/ZIP Co de Phone Number [facility] [address] [place] [address], [place] [phone] * (ABNORMAL) Vitamin B12 (12/26/2023 5:59 PM EST) Pathologist [facility] Vitamin B-12 121(L) 250 - 900 pcg/mL LAB CHEMISTRY METHOD 12/26/2023 7:23 PM EST [facility] Blood Venous blood specimen / Unknown 12/26/2023 5:59 PM EST 12/26/2023 6:00 PM EST Uli Arevalo MD LAB BLOOD ORDERABLE S [facility] [address] [place] [address], [place] [phone] from Last 3 Months Care Teams House Coordinator Relationship Specialty Start Date End Date Uli Arevalo MD [address] PCP - General Internal Medicine 04/13/21
--- OUTSIDE RECORDS SUMMARY | 2024-03-04 20:08 | XMS_ITS | Encounter Summary ---
Author Organization [facility] Address [address] [place] [address] Care Team Providers Care Patrol Police Lieutenant Name Role Phone Uli Arevalo MD Primary Care Provider Encounter Details Date Type Department Care Team (Latest Contact Info) Description 01/10/2024 Lab Requisition [facility] - Main Lab 299 [facility] [place] [phone] Uli Arevalo MD 299 [facility] [address] [place] [address] Type 2 diabetes mellitus without complications (CMS/HCC) [...] Priority Date/Time Associated Diagnosis Comments FRUCTOSAMINE Routine 01/10/2024 12:00 AM EST Type 2 diabetes mellitus without complications (CMS/HCC) HEMOGLOBIN A1C Routine 01/10/2024 12:00 AM EST Type 2 diabetes mellitus without complications (CMS/HCC) documented in this encounter Results * Hemoglobin A1c (01/10/2024 12:00 AM EST) Hemoglobin A1C 5.4 <6.5 % LAB CHEMISTRY METHOD 01/10/2024 9:31 PM EST [facility] Mean Bld Glu Estim. 108 mg/dL LAB CHEMISTRY METHOD 01/10/2024 9:31 PM EST [facility] Blood Venous blood specimen / Unknown 01/10/2024 01/10/2024 6:13 PM EST Uli Arevalo MD LAB BLOOD ORDERABLE S Performing Organization Address City/[facility]/ZIP Co de Phone Number [facility] [address] [place] [address], * Fructosamine (01/10/2024 12:00 AM EST) Fructosamine 322 SeeBelow umol /L 01/15/2024 12:23 PM EST [facility] Comment: There is no established reference range for patients aged less than 19 years or greater than 65 years. Test performed at [facility], [address] , [place], [place] ??[address] ? [phone] Alexandra Nava MD, PhD - Bank Secrecy Act Officer Blood Venous blood specimen / Unknown 01/10/2024 01/10/2024 6:13 PM EST Uli Arevalo MD LAB BLOOD ORDERABLE S Performing Organization Address City/[facility]/ZIP Co de Phone Number [facility] [address] [place] [address] documented in this encounter Visit Diagnoses Diagnosis Type 2 diabetes mellitus without complications (CMS/HCC) documented in this encounter Care Teams Patrol Police Lieutenant Relationship Specialty Start Date End Date Uli Arevalo MD [address] PCP - General Internal Medicine 04/13/21 documented as of this encounter
--- OUTSIDE RECORDS SUMMARY | 2024-03-04 20:08 | XMS_ITS | Encounter Summary ---
Author Organization [facility] Address [address] [place] [address] Care Team Providers Care Floor Service Worker Spring Name Role Phone Uli Arevalo MD Primary Care Provider Encounter Details Date Type Department Care Team (Latest Contact Info) Description 02/01/2024 Lab Requisition [facility] - Main Lab 299 [facility] [place] [phone] Uli Arevalo MD 299 [facility] [address] [place] [address] Type 2 diabetes mellitus without complications (CMS/HCC) [...] Priority Date/Time Associated Diagnosis Comments FRUCTOSAMINE Routine 02/01/2024 12:00 AM EST Type 2 diabetes mellitus without complications (CMS/HCC) HEMOGLOBIN A1C Routine 02/01/2024 12:00 AM EST Type 2 diabetes mellitus without complications (CMS/HCC) documented in this encounter Results * Hemoglobin A1c (02/01/2024 12:00 AM EST) Hemoglobin A1C 6.2 <6.5 % LAB CHEMISTRY METHOD 02/01/2024 8:38 PM EST [facility] ([facility] Mean Bld Glu Estim. 131 mg/dL LAB CHEMISTRY METHOD 02/01/2024 8:38 PM EST [facility] Blood Venous blood specimen / Unknown 02/01/2024 02/01/2024 5:57 PM EST Uli Arevalo MD LAB BLOOD ORDERABLE S Performing Organization Address City/[facility]/ZIP Co de Phone Number [facility] ([facility]) [facility] [address] [place] [address], * Fructosamine (02/01/2024 12:00 AM EST) Fructosamine 283 SeeBelow umol /L 02/05/2024 9:50 AM EST [facility] Comment: There is no established reference range for patients aged less than 19 years or greater than 65 years. Test performed at [facility], [address] , [place], [place] ??[address] ? [phone] Alexandra Nava MD, PhD - Color Repairer Blood Venous blood specimen / Unknown 02/01/2024 02/01/2024 5:57 PM EST Uli Arevalo MD LAB BLOOD ORDERABLE S Performing Organization Address City/[facility]/ZIP Co de Phone Number [facility] [address] [address] documented in this encounter Visit Diagnoses Diagnosis Type 2 diabetes mellitus without complications (CMS/HCC) documented in this encounter Care Teams Floor Service Worker Spring Relationship Specialty Start Date End Date Uli Arevalo MD [address] PCP - General Internal Medicine 04/13/21 documented as of this encounter
[2024-03-04 20:13] VITALS: BP 151/56; PULSE 68; RESP 16; TEMP 36.4; O2SAT 100
== END 2024-03-04 20:40 | disposition home or self-care (01) ==
PROVIDERS: Emergency Provider Emergency Medicine; PCP Internal Medicine
DX: S01.81XA Laceration without foreign body of other part of head, initial encounter (principal); W18.39XA Other fall on same level, initial encounter; Y93.89 Activity, other specified; Y92.038 Other place in apartment as the place of occurrence of the external cause; Y99.9 Unspecified external cause status; E11.9 Type 2 diabetes mellitus without complications; I10 Essential (primary) hypertension; E78.5 Hyperlipidemia, unspecified; Z79.02 Long term (current) use of antithrombotics/antiplatelets; Z79.84 Long term (current) use of oral hypoglycemic drugs; Z79.899 Other long term (current) drug therapy; Z23 Encounter for immunization
CPT/HCPCS: 12032; 70450; 71046; 72125; 90471; 90715; 99284

== ENCOUNTER → 2024-03-04 16:11 | Outpatient (BNV) | payer MEDICARE, OTHER, SELFPAY | PROVIDERS: Emergency Provider Emergency Medicine; PCP Internal Medicine; Visit Provider Radiology Diagnostic Radiology | DX: M54.2 Cervicalgia (principal); J34.89 Other specified disorders of nose and nasal sinuses; R07.9 Chest pain, unspecified; W19.XXXA Unspecified fall, initial encounter | CPT/HCPCS: 70450; 71046; 72125 ==

== ENCOUNTER 2024-03-29 11:25 | Emergency (ER) | payer MEDICARE, OTHER, SELFPAY ==
--- NOTE | ~2024-03-29 | CT_ITS ---
EXAMINATION: CT CERVICAL SPINE WITHOUT CONTRAST CLINICAL INFORMATION: Fall, head injury. COMPARISON: 03/04/2024. TECHNIQUE: Spiral CT imaging of the cervical spine performed in axial plane without contrast. Multiplanar reformatted images were constructed from the axial data set. This CT examination was performed using dose optimization techniques as appropriate, variously including the following: *Automated exposure control *Adjustment of mA and/or kV according to patient size (this includes techniques or standardized protocols for targeted exams where dose is matched to indication/reason for exam; i.e. extremities or head) *Use of iterative reconstruction technique FINDINGS: CORONAL ALIGNMENT: -Minimal right convex scoliosis, possibly positional. SAGITTAL ALIGNMENT: -Normal lordosis. -No subluxations. C1-C2 AND CRANIOCERVICAL JUNCTION: -Intact and aligned. -Degenerative changes with mild calcified pannus formation at the atlantoaxial joint. VERTEBRAL BODIES AND FACETS: -No fracture, deformity, traumatic subluxation, or suspicious bone lesion. -Facets are normally aligned with multilevel bilateral facet hypertrophy and degeneration. The left C3-4 facets are fused. -Bulky ventral disc osteophytes are present beginning at C4-5, and extending throughout the upper thoracic level. Findings are in keeping with DISH. DISCS: -Mild diffuse disc degeneration most significant at C4-5. PREVERTEBRAL AND PARAVERTEBRAL SOFT TISSUES: -Normal. No prevertebral or paravertebral soft tissue abnormality. -Moderate carotid bulb calcifications bilaterally. -Thyroid gland with mild lobulation. No dominant nodule seen. LUNG APICES: -Clear bilaterally. No pneumothorax. CT/CT cervical spine wo IV con IMPRESSION: 1. No CT evidence of acute cervical spine fracture or injury. 2. 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 Electronically signed by: Young Young MD 03/29/2024 12:53 PM [facility]
--- NOTE | ~2024-03-29 | CT_ITS ---
EXAMINATION: CT HEAD WITHOUT CONTRAST CLINICAL INFORMATION: fall, +HS COMPARISON: CT dated March 04, 2024. TECHNIQUE: Contiguous axial imaging was performed from the skull base to vertex without intravenous administration of contrast. This CT examination was performed using dose optimization techniques as appropriate, variously including the following: *Automated exposure control *Adjustment of mA and/or kV according to patient size (this includes techniques or standardized protocols for targeted exams where dose is matched to indication/reason for exam; i.e. extremities or head) *Use of iterative reconstruction technique DLP: 688 mGy-cm FINDINGS: There is a soft tissue contusion in the right forehead with the saline skin breakdown. The bony calvarium is intact. There is endosteal bone reaction involving the frontal sinuses and maxillary sinuses and to a lesser extent the ethmoid air cells secondary to increased density fluid secretions and mucosal thickening occupying the entirety. The sphenoid sinus is well pneumatized and aerated. The skull base is intact. No acute intracranial hemorrhage, mass effect, midline shift, hydrocephalus or herniation. There is prominence of the extra-axial CSF spaces along the hemicranial convexities likely related to volume loss. 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 Bilateral multifocal patchy and confluent deep periventricular white matter hypodensity involving centrum semiovale and damon radiata. 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 Posterior cranial fossa contents demonstrated no acute intracranial hemorrhage. Sellar/suprasellar region demonstrated no gross masses or hemorrhage. Craniocervical junction is intact with a partially calcified pannus formation in the periodontal C1 region. Calcified plaques in the cavernous and supraclinoid segments both ICAs and the V4 segments of the vertebral arteries. CT/CT head/brain wo IV con IMPRESSION: No acute fracture, bony calvarium. No acute intracranial hemorrhage. 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 Recommend direct inspection. Small vessel occlusive disease. Superimposed acute stroke/nonhemorrhagic ischemia cannot be excluded. Global cerebral atrophy with questionable bilateral hygroma/chronic subdural hematomas. If clinical concern recommend non-IV contrast MRI brain. Discussed with the emergency ordering physician Dr. Ysabel Blackwood 12:53 PM Electronically signed by: Young Lal MD 03/29/2024 01:07 PM [facility]
[2024-03-29 11:38] VITALS: BP 152/70; PULSE 70; O2SAT 100
--- NOTE | 2024-03-29 11:39 | ED.HEATRA ---
HPI - Head Injury General Chief complaint: Fall Stated complaint: FALL, -THIN, LOC, COLLAR, +HS, LAC PER EMS Time Seen by Provider: 03/29/24 11:29 Source: patient and EMS Mode of arrival: EMS Limitations: no limitations History of Present Illness HPI Narrative: Patient is an 88-year-old male who presents emergency department via EMS for evaluation after an unwitnessed fall heavy occurred at approximately 02:00 this morning. He reports that he was walking back from the restroom to bed, he went to sit down on his bed he thought he was right at the edge but was just before he ultimately fell striking the right side of his head onto the nightstand. He denies any loss of consciousness. He was able to get himself up and get into bed. Reports that he has a FRUIT SPRAYER who comes into the home to help clean up, he thought perhaps she might be able to help clean the laceration on his head but she ultimately called EMS for transport to the hospital. He denies the use of anticoagulants or known coagulation disorders. He does admit that he had a mechanical fall 1 week ago for which he sustained a large laceration to the right forehead which is well healed, his tetanus vaccine was updated at that time. Denies headache, dizziness, lightheadedness, vision changes, neck pain, neck stiffness, numbness or tingling of the extremities, bladder bowel dysfunction. Related Data Home Medications ?Medication ?Instructions ?Recorded ?Confirmed atorvastatin 20 mg tablet 20 mg PO DAILY 08/22/22 08/22/22 brimonidine 0.1 % eye drops 1 drp ophthalmic (eye) BEDTIME 08/22/22 08/22/22 (Alphagan P) bupropion HCl 300 mg 24 hr tablet, 300 mg PO DAILY 08/22/22 08/22/22 extended release dorzolamide 22.3 mg-timolol 6.8 1 drp ophthalmic (eye) BID 08/22/22 08/22/22 mg/mL eye drops dulaglutide 3 mg/0.5 mL 3 mg subcut QWEEK 08/22/22 08/22/22 subcutaneous pen injector (Trulicity) insulin degludec 100 unit/mL (3 20 unit subcut DAILY 08/22/22 08/22/22 mL) subcutaneous pen (Tresiba FlexTouch U-100 insulin) latanoprost 0.005 % eye drops 1 drp ophthalmic (eye) BID 08/22/22 08/22/22 losartan 25 mg tablet 25 mg PO DAILY 08/22/22 08/22/22 metformin 1,000 mg tablet 1,000 mg PO BID 08/22/22 08/22/22 netarsudil 0.02 % eye drops 1 drp ophthalmic (eye) BEDTIME 08/22/22 08/22/22 (Rhopressa) ramelteon 8 mg tablet 8 mg PO BEDTIME 08/22/22 08/22/22 tamsulosin 0.4 mg capsule 0.4 mg PO DAILY 08/22/22 08/22/22 Previous Rx's ?Medication ?Instructions ?Recorded docusate sodium 100 mg capsule 100 mg PO BEDTIME #30 caps 08/25/22 enoxaparin 40 mg/0.4 mL 40 mg (0.4 mL) subcut Q24H 42 days 08/25/22 subcutaneous syringe #16.8 mL oxycodone 5 mg tablet 5 mg PO Q6H PRN Pain, Severe (Pain 08/25/22 Scale 7-10) #12 tabs polyethylene glycol 3350 17 gram 17 g PO DAILY PRN constipation 08/25/22 oral powder packet #30 ea Allergies Allergy/AdvReac Type Severity Reaction Status Date / Time No Known Allergies Allergy Verified 03/29/24 11:46 Review of Systems Review of Systems: Yes all other systems are reviewed and are negative [facility] Past Medical History Attestation statement: The following information was validated with the patient. Source: old records reviewed Medical History Diabetes Hyperlipidemia Glaucoma Hypertension Social History Social History Housing: Assisted Living Facility Do you presently have visiting nurse or other home services: No Alcohol intake: current Alcohol intake frequency: a few times a week Alcohol type: wine and hard liquor Patient Tobacco Use Status: Never used Tobacco Advance Directives: Yes Advance Directives on File: Yes Advance Directives Date on File: 08/26/22 service: No Physical Exam Vital Signs: Vital Signs: Last Vital Signs Temp 97.8 F 03/29/24 11:44 Pulse 67 03/29/24 11:44 Resp 18 03/29/24 11:44 BP 148/53 H 03/29/24 11:44 Pulse Ox 100 03/29/24 11:44 O2 Del Method Room Air 03/29/24 11:44 BMI result Body Mass Index 26.5 Appearance: Alert.?Oriented to person, place and time. No acute distress.?Normal affect. Head: Right temporoparietal scalp with linear laceration, middle of the laceration is superficial, wound edges not , ends of laceration be amenable to repair. No active bleeding. Eyes: Pupils equal, round and reactive to light. EOMI. Conjunctiva and sclera normal? No Gottlieb sign noted. No raccoon eyes noted ENT: No septal hematoma, nares patent bilaterally. External auditory canal normal tympanic membrane pearly ramirez and intact bilaterally. Dentition normal, no fractured teeth. No lesions or lacerations of oropharynx. Uvula midline. Moist mucous membranes. Neck: Normal inspection.? Neck supple.??No palpable tenderness, step-off, deformities. CVS: Heart sounds normal. Normal heart rate and rhythm.? Pulses normal.?? Respiratory: No respiratory distress.? Lung sounds clear to auscultation bilaterally?? Abdomen: Soft and non-tender. Normoactive bowel sounds. ?? Skin: Skin warm and dry.? Normal skin color.? Normal skin turgor.?? Extremities: No lower extremity edema.? Neuro: Moves all extremities spontaneously. Sensation intact bilaterally. CN II-XII intact. No focal neuro deficits. Course Reevaluation(s) Reevaluation #1: I received a call from Radiology regarding concerning finding on head CT, notable opacification of the sinuses concerning for potential fungal etiology. On speaking with patient, he does admit that over the past year has been suffering from rhinorrhea. However he is well-appearing, nontoxic, afebrile, without tachycardia. He has no significant sinus tenderness upon palpation. I did review this with my attending Dr. Kwon who felt that with significant acute fungal infection he would you presenting much more ill-appearing then current, advises outpatient follow-up with ENT regarding the sinusitis. No ICH, evidence of small vessel occlusive disease radiologist impression superimposed acute stroke/nonhemorrhagic ischemia can not be excluded, history and physical examination is not consistent with acute stroke. He is alert and oriented x3. Clear speech, no focal neurological deficits. No indication for emergent MRI at this time. 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 Time: 13:03 Medical Decision Making Medical Decision Making MDM Narrative: Patient is an 88-year-old male past medical history of hypertension, hyperlipidemia, diabetes who presents emergency department for evaluation after mechanical trip and fall. Scalp laceration was cleansed with normal saline, repaired with 3 black as per procedural portion of this note, tetanus vaccination has been updated on 03/04/2024. On evaluation has no focal neurological deficits. No use of anticoagulants or known coagulation disorders. Based on mechanism of injury and physical examination, and age obtaining CT of the head and cervical spine, he has no focal neurological deficits, however will rule out ICH, SDH, skull fracture, cervical spine fracture subluxation. Differential Diagnosis Differential Diagnoses: The differential diagnosis associated with the presentation includes (See narrative above) Admission/Observation Consideration of admission/observation: Escalation of care including admission/observation considered (See narrative above) Independent Interpretation I performed an independent interpretation of an: CT Scan (No ICS, intracranial volume loss) Radiology Impression Discussion of test interpretation with radiology: I have reviewed the radiologist's reading. Radiologist Impression: CT/CT head/brain wo IV con IMPRESSION: No acute fracture, bony calvarium. No acute intracranial hemorrhage. 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 Recommend direct inspection. Small vessel occlusive disease. Superimposed acute stroke/nonhemorrhagic ischemia cannot be excluded. Global cerebral atrophy with questionable bilateral hygroma/chronic subdural hematomas. If clinical concern recommend non-IV contrast MRI brain. CT/CT cervical spine wo IV con IMPRESSION: 1. No CT evidence of acute cervical spine fracture or injury. 2. 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 Independent Historian Clinical information obtained from an independent historian. History obtained from or confirmed by: EMS External Record Review External record reviewed: Outpatient record Prescription Management I considered prescription management with: Pain Medication Procedures Laceration Laceration 1: Site: scalp Size (cm): 3 Description: linear Depth: simple, single layer Pre-repair: irrigated extensively and deep structures intact Size (cm): other (3 black) Discharge Plan Discharge Clinical Impression: Head injury, Sinusitis Laceration of scalp Qualifiers: Encounter type: initial encounter Qualified Code(s): S01.01XA - Laceration without foreign body of scalp, initial encounter Patient Disposition: Home, Self-Care Instructions: Laceration (ED), Head Injury (ED) Additional Instructions: You may clean the area gently slowly with warm water and mild non scented soap over the next 2 days, dry the area afterwards, otherwise should remain dry until removed. Avoid prolonged soaking in water such as swimming, soaking in the bath. Sutures will need to be removed in 7-10 days, you may return back to emergency department or follow-up with your primary care doctor for removal Tetanus vaccine is updated recently on 03/04/2024, does not require a 2nd update today Return with any new or worsening symptoms or concerns such as increasing pain, redness, swelling, pus-like discharge, fevers or chills. There was an incidental finding on your CT scan of significant congestion/blockage of the sinuses, or radiologist expresses concern that there may be a fungal component to this. You did admit that you have been having a runny nose for at least 1 year. It is recommended that you contact an ear nose throat specialist to arrange for further follow-up. I have provided contact information for the Ear Nose Throat specialist associated with our hospitalist; Dr. Lackey, as well as information for an ear nose throat specialist in [facility], [place] [address] Prescriptions: No Action latanoprost 0.005 % drops 1 drp ophthalmic (eye) BID atorvastatin 20 mg tablet 20 mg PO DAILY tamsulosin 0.4 mg capsule 0.4 mg PO DAILY metformin 1,000 mg tablet 1,000 mg PO BID losartan 25 mg tablet 25 mg PO DAILY dorzolamide-timolol 22.3-6.8 mg/mL drops 1 drp ophthalmic (eye) BID bupropion HCl 300 mg tablet extended release 24 hr 300 mg PO DAILY ramelteon 8 mg tablet 8 mg PO BEDTIME Alphagan P 0.1 % drops 1 drp ophthalmic (eye) BEDTIME insulin degludec [Tresiba FlexTouch U-100] 100 unit/mL (3 mL) insulin pen 20 unit subcut DAILY Rhopressa 0.02 % drops 1 drp ophthalmic (eye) BEDTIME Trulicity 3 mg/0.5 mL pen injector 3 mg subcut QWEEK enoxaparin 40 mg/0.4 mL Syringe 40 mg subcut Q24H 42 Days Qty: 16.8 0RF polyethylene glycol 3350 17 gram Powder In Packet 17 g PO DAILY PRN (Reason: constipation ) Qty: 30 0RF docusate sodium 100 mg Capsule 100 mg PO BEDTIME Qty: 30 0RF oxycodone 5 mg Tablet 5 mg PO Q6H PRN (Reason: Pain, Severe (Pain Scale 7-10)) Qty: 12 0RF Rx Instructions: Partial Fill upon patient request. Referrals: Jayjay Lackey [Physician] - Physician,Unknown J [Primary Care Provider] - Print Language: Luxembourgish
[2024-03-29 11:44] VITALS: BP 148/53; PULSE 67; RESP 18; TEMP 36.6; O2SAT 100; BMI 26.5
--- OUTSIDE RECORDS SUMMARY | 2024-03-29 12:53 | XMS_ITS | Clinical Summary ---
Author Organization [address] Address [address] [place] [address] Phone Care Team Providers Care Boiler Service Technician Name Role Phone Uli Arevalo MD Primary Care Provider Encounters Date Type Department Care Team Description 02/01/2024 Lab Requisition [facility] [address] [place] [phone] Uli Arevalo MD Type 2 diabetes mellitus without complications (CMS/HCC) 01/10/2024 Lab Requisition [facility] [address] [place] [phone] Uli Arevalo MD Type 2 diabetes mellitus without complications (CMS/HCC) from Last 3 Months Surgical History Surgery Date Site/Laterality Comments 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 Medical History Medical History Date Comments Hypertension DX:Hypertension Type II diabetes mellitus (CMS/HCC) DX:Type II diabetes mellitus (HCC) Hyperlipidemia DX:Hyperlipidemi a Coronary artery disease DX:Coron mary artery disease Social History Tobacco Use Types Packs/Day Years Used Date Smoking Tobacco: Never Alcohol Use Standard Drinks/Week Comments Yes 0 (1 standard drink = 0.6 oz pur e alcohol) Sex and Gender Information Value Date Recorded Sex Assigned at Not on file Legal Sex Male 11:52 PM EST Gender Identity Not on file Sexual Orientation [...] Health Maintenance Due Date Last Done Comments Diabetes: Annual Foot Exam 06/18/1945 Diabetes: Annual Retina Eye Exam 06/18/1945 DTaP,Tdap,and Td Vaccines (1 - Tdap) 06/18/1954 Pneumococcal Vaccine: 50+ Years (1 of 2 - PCV) 06/18/1954 Zoster Vaccines (1 of 2) 06/18/1985 [...] patient's age to complete this topic Meningococcal B Vacine Aged Out No lo nger eligible based on patient's age to complete [...] 12:00 AM EST) Only the most recent of2 resultswithin the time period is included. Fructosamine 283 SeeBelow umol /L 02/05/2024 9:50 AM EST [facility] Comment: There is no established reference range for patients aged less than 19 years or greater than 65 years. Test performed at [facility], [address] [facility] [place] [place], [place] ??[address] ? [phone] Alexandra Nava MD, PhD - Exterminator Helper Termite Blood Venous blood specimen / Unknown 02/01/2024 02/01/2024 5:57 PM EST Uli Arevalo MD LAB BLOOD ORDERABLES Final Result [facility] [address] [place] [address] * Hemoglobin A1c (02/01/2024 12:00 AM EST) Only the most recent of2 resultswithin the time period is included. Hemoglobin A1C 6.2 <6.5 % LAB CHEMISTRY METHOD 02/01/2024 8:38 PM EST [facility] Mean Bld Glu Estim. 131 mg/dL LAB CHEMISTRY METHOD 02/01/2024 8:38 PM EST [facility] Blood Venous blood specimen / Unknown 02/01/2024 02/01/2024 5:57 PM EST Uli Arevalo MD LAB BLOOD ORDERABLES Final Result [facility] [address] [place] [address], from Last 3 Months Insurance MEDICARE Care Teams Boiler Service Technician Relationship Specialty Start Date End Date Uli Arevalo MD [address] PCP - General Internal Medicine 04/13/21
--- OUTSIDE RECORDS SUMMARY | 2024-03-29 12:53 | XMS_ITS | Encounter Summary ---
Author Organization [facility] Address [address] [place] [address] Care Team Providers Care Continuous Process Machine Operator Name Role Phone Uli Arevalo MD Primary Care Provider Encounter Details Date Type Department Care Team (Latest Contact Info) Description 01/10/2024 Lab Requisition [facility] - Main Lab 299 [facility] [place] [address] Uli Arevalo MD 299 [facility] [address] [place] [address] Type 2 diabetes mellitus without complications (CMS/HCC) [...] LAB CHEMISTRY METHOD 01/10/2024 9:31 PM EST [facility] Mean Bld Glu Estim. 108 mg/dL LAB CHEMISTRY METHOD 01/10/2024 9:31 PM EST [facility] Blood Venous blood specimen / Unknown 01/10/2024 01/10/2024 6:13 PM EST Uli Arevalo MD LAB BLOOD ORDERABLES Final Result Performing Organization Address City/[facility]/ZIP Co de Phone Number [facility] [address] [place] [address], [place] [phone] * Fructosamine (01/10/2024 12:00 AM EST) Fructosamine 322 SeeBelow umol /L 01/15/2024 12:[address] [facility] Comment: There is no established reference range for patients aged less than 19 years or greater than 65 years. Test performed at [facility], [address] , [place], [place] ??[address] ? [phone] Alexandra Nava MD, PhD - Leather Cleaner Blood Venous blood specimen / Unknown 01/10/2024 01/10/2024 6:13 PM EST Uli Arevalo MD LAB BLOOD ORDERABLES Final Result Performing Organization Address City/[facility]/ZIP Co de Phone Number [facility] [address] [place] [address] documented in this encounter Visit Diagnoses Diagnosis Type 2 diabetes mellitus without complications (CMS/HCC) documented in this encounter Care Teams Continuous Process Machine Operator Relationship Specialty Start Date End Date Uli Arevalo MD [address] [facility] [address] [place] [address] PCP - General Internal Medicine 04/13/21 documented as of this encounter
--- OUTSIDE RECORDS SUMMARY | 2024-03-29 12:53 | XMS_ITS | Encounter Summary ---
Author Organization [facility] Address [address] [place] [address] Care Team Providers Care Cosmetic Sales Consultant Name Role Phone Uli Arevalo MD Primary Care Provider Encounter Details Date Type Department Care Team (Latest Contact Info) Description 12/26/2023 Lab Requisition [facility] - Main Lab 299 [facility] [place] [address] Uli Arevalo MD 299 [facility] [address] [place], [place] [id number] Vitamin B12 deficiency anemia due to intrinsic [...] * Hemoglobin A1c (12/26/2023 5:59 PM EST) Pathologist [facility] Hemoglobin A1C 5.6 <6.5 % LAB CHEMISTRY METHOD 12/27/2023 1:00 PM EST [facility] Mean Bld Glu Estim. 114 mg/dL LAB CHEMISTRY METHOD 12/27/2023 1:00 PM EST [facility] Blood Venous blood specimen / Unknown 12/26/2023 5:59 PM EST 12/26/2023 6:00 PM EST Uli Arevalo MD LAB BLOOD ORDERABLES Final Result Performing Organization Address [facility]/ZIP Co de Phone Number [facility] [address] [place] [address], [place] [phone] * (ABNORMAL) Vitamin B12 (12/26/2023 5:59 PM EST) [facility] Vitamin B-12 121(L) 250 - 900 pcg/mL LAB CHEMISTRY METHOD 12/26/2023 7:23 PM EST [facility] Blood Venous blood specimen / Unknown 12/26/2023 5:59 PM EST 12/26/2023 6:00 PM EST us Uli Arevalo MD LAB BLOOD ORDERABLES Final Result [facility] [address] [place] [address], [place] [phone] * Fructosamine (12/26/2023 5:59 PM EST) Pathologist [facility] Fructosamine 337 SeeBelow umol /L 12/31/2023 4:19 PM EST [facility] Comment: There is no established reference range for patients aged less than 19 years or greater than 65 years. Test performed at [facility], [address] , [place], [place] ??[address] ? [phone] Alexandra Nava MD, PhD - Human Resources Director Blood Venous blood specimen / Unknown 12/26/2023 5:59 PM EST 12/26/2023 6:00 PM EST us Uli Arevalo MD LAB BLOOD ORDERABLES Edited Result - Final [facility] [address] [place] [id number] documented in this encounter Visit Diagnoses Diagnosis Vitamin B12 deficiency anemia due to intrinsic factor deficiency Pernicious anemia Type 2 diabetes mellitus without complications (CMS/HCC) documented in this encounter Care Teams Cosmetic Sales Consultant Relationship Specialty Start Date End Date Uli Arevalo MD [address] [place] [address] PCP - General Internal Medicine 04/13/21 documented as of this encounter
--- OUTSIDE RECORDS SUMMARY | 2024-03-29 12:53 | XMS_ITS | Encounter Summary ---
Author Organization [facility] Address [address] [place] [address] Care Team Providers Care Cooker Pie Filling Name Role Phone Uli Arevalo MD Primary Care Provider Encounter Details Date Type Department Care Team (Latest Contact Info) Description 02/01/[address] [facility] - Main Lab [address] [facility] [address] Uli Arevalo MD [address] [facility] [address] [place] [address] Type 2 diabetes mellitus without complications (CMS/HCC) [...] LAB CHEMISTRY METHOD 02/01/2024 8:38 PM EST [facility] Mean Bld Glu Estim. 131 mg/dL LAB CHEMISTRY METHOD 02/01/2024 8:38 PM EST [facility] Blood Venous blood specimen / Unknown 02/01/2024 02/01/2024 5:57 PM EST Uli Arevalo MD LAB BLOOD ORDERABLES Final Result Performing Organization Address City/[facility]/ZIP Co de Phone Number [facility] [address] [place] [address], [place] [phone] * Fructosamine (02/01/2024 12:00 AM EST) Fructosamine 283 SeeBelow umol /L 02/05/2024 9:50 AM EST [facility] Comment: There is no established reference range for patients aged less than 19 years or greater than 65 years. Test performed at [facility], [address] , [place], [place] ??[address] ? [phone] Alexandra Nava MD, PhD - Barbecue Cook Blood Venous blood specimen / Unknown 02/01/2024 02/01/2024 5:57 PM EST Uli Arevalo MD LAB BLOOD ORDERABLES Final Result Performing Organization Address City/[facility]/ZIP Co de Phone Number [facility] [address] [place] [address] documented in this encounter Visit Diagnoses Diagnosis Type 2 diabetes mellitus without complications (CMS/HCC) documented in this encounter Care Teams Cooker Pie Filling Relationship Specialty Start Date End Date Uli Arevalo MD [address] PCP - General Internal Medicine 04/13/21 documented as of this encounter
[2024-03-29 14:00] VITALS: BP 153/60; PULSE 67; RESP 18; TEMP 36.8; O2SAT 100
== END 2024-03-29 17:13 | disposition home or self-care (01) ==
PROVIDERS: Emergency Provider Emergency Medicine
DX: S01.01XA Laceration without foreign body of scalp, initial encounter (principal); M54.2 Cervicalgia; J32.9 Chronic sinusitis, unspecified; R51.9 Headache, unspecified; W01.190A Fall on same level from slipping, tripping and stumbling with subsequent striking against furniture, initial encounter; Y93.9 Activity, unspecified; Y92.9 Unspecified place or not applicable; Y99.8 Other external cause status
CPT/HCPCS: 12002; 70450; 72125; 99283; 99284

== ENCOUNTER → 2024-03-29 11:50 | Outpatient (BNV) | payer MEDICARE, OTHER, SELFPAY | PROVIDERS: Emergency Provider Emergency Medicine; Visit Provider Radiology Diagnostic Radiology | DX: M47.892 Other spondylosis, cervical region (principal); W19.XXXA Unspecified fall, initial encounter | CPT/HCPCS: 70450; 72125 ==

== ENCOUNTER 2024-07-19 10:00 | Emergency (ER) | payer MEDICARE, OTHER, SELFPAY ==
[2024-07-19] VITALS (9 sets, daily range): BP systolic 115–180; BP diastolic 53–93; PULSE 62–118; RESP 12–28; TEMP 36.4–36.6; O2SAT 96–100; BMI 29.5
--- NOTE | ~2024-07-19 | CT_ITS ---
EXAMINATION: CT HEAD WITHOUT CONTRAST CLINICAL INFORMATION: Fall, head trauma COMPARISON: March 29, 2024 TECHNIQUE: Contiguous axial imaging was performed from the skull base to vertex without intravenous administration of contrast. This CT examination was performed using dose optimization techniques as appropriate, variously including the following: *Automated exposure control *Adjustment of mA and/or kV according to patient size (this includes techniques or standardized protocols for targeted exams where dose is matched to indication/reason for exam; i.e. extremities or head) *Use of iterative reconstruction technique DLP: 718 mGY*cm FINDINGS: Again noted are periventricular, deep white matter, and right pontine low density. Right pontine hypoattenuation appears slightly more pronounced. There is no focal hypoattenuation along the anterior midline of the consuelo in the suprasellar cistern that appears to be outside of the basilar artery calcifications concerning for trace intracranial hemorrhage (for example axial series 4 111/166). There is also possible trace intraventricular hemorrhage in the right lateral ventricle (series 4 axial image 79/166) There is no mass-effect or midline shift. Ventricles appear subjectively enlarged for the degree of atrophy. Orbits are symmetrical and unremarkable. There is chronic opacification of the frontal sinuses and anterior ethmoid ulcers and bilateral maxillary sinuses. There are no bony abnormalities. CT/CT head/brain wo IV con IMPRESSION: Suspected trace intracranial hemorrhage in the right lateral ventricle and suprasellar cistern. Right pontine low attenuation is slightly more pronounced than on the prior examination raising question of acute ischemic change versus evolution of prior infarct. Chronic sinusitis somewhat sparing the sphenoid sinuses and posterior ethmoid air cells. There is moderate frontotemporal atrophy with enlargement of ventricles that appears subjectively greater then the degree of atrophy raising question of hydrocephalus. Dr. Lopez notified. Electronically signed by: Juma Lao MD 07/19/2024 02:32 PM EDT
--- NOTE | ~2024-07-19 | CT_ITS ---
CLINICAL HISTORY: CT fro TBI --- Additional Notes or Special Instructions: CT at 6PM CT head without contrast Comparison: CT/SR - CT HEAD/BRAIN WO IV CON - 07/19/24 12:49 EDT Findings: New anterior right cerebral convexity subdural fluid collection measuring 7 mm in maximum thickness consistent with subdural hematoma. Stable appearance of trace subarachnoid hemorrhage in the suprasellar cistern. Previously questioned right lateral ventricular hemorrhage is unchanged. No findings of significant mass effect or midline shift. The ventricles and basilar cisterns are patent. Mild global cerebral volume loss and moderate chronic microvascular ischemic changes are similar. Previously seen hypoattenuation in the consuelo appears more pronounced, again raising concern for developing ischemia although this could represent combination of artifact and chronic microvascular ischemic changes. IMPRESSION: 1. New small anterior right cerebral convexity subdural hematoma with no significant associated mass effect. 2. Stable foci of hemorrhage in the right lateral ventricle and suprasellar cistern. 3. Pontine hypoattenuation may reflect a combination of artifact and chronic microvascular ischemic changes, however a component of ischemia is not excluded. This document has been electronically signed by: Jae Antonio MD on 07/19/2024 19:27:23
--- NOTE | ~2024-07-19 | CT_ITS ---
EXAMINATION: CT ABDOMEN PELVIS WITH IV CONTRAST HISTORY: abdominal pain COMPARISON: Comparison is made with the prior examination dated 12/16/2021. TECHNIQUE: CT scan of the abdomen and pelvis was performed following administration of 85 mL Omnipaque 350 using standard departmental protocol. Coronal and sagittal reformatted images were generated and reviewed. Oral contrast material was not administered at the request of the referring physician. This CT exam was performed with one or more of the following dose reduction techniques: automated exposure control, adjustment of the mA and/or kV according to patient size, use of iterative reconstruction technique. DLP: 963 mGy-cm FINDINGS: LOWER CHEST: There is scarring at the lung bases. There is no pleural effusion. CARDIOVASCULATURE: The heart is normal in size. There is no pericardial effusion. LIVER: The liver is normal in size and contour. No liver mass is identified. The hepatic and portal veins are patent. GALLBLADDER / BILE DUCTS: There is probable cholelithiasis. There is no intra or extrahepatic biliary ductal dilatation. SPLEEN: The spleen is normal in size. No focal splenic lesion is identified. PANCREAS: The pancreas is unremarkable in appearance. ADRENAL GLANDS: Within normal limits. KIDNEYS/RETROPERITONEUM: There is a 2.6 cm cyst at the upper pole of the right kidney. No right renal calculi are identified. There are multiple nonobstructing left renal calculi, the largest of which is in the interpolar region measuring 5 mm in diameter. There is mild prominence of the left renal pelvis and ureter to the level of a 5 mm calculus at the level of the L4-5 intervertebral disc space. LYMPH NODES: No abdominal or pelvic lymphadenopathy. VASCULATURE: The abdominal aorta demonstrates atherosclerotic calcification, but is normal in caliber. There is marked atherosclerotic calcification of the major branch vessels of the abdominal aorta. MESENTERY/PERITONEUM: No free fluid. No masses. There is no free intraperitoneal gas. STOMACH: The stomach is collapsed, limiting evaluation. SMALL BOWEL: The small bowel is normal in caliber. COLON: There is a moderate amount stool throughout the colon. APPENDIX: Normal. URINARY BLADDER/PELVIC ORGANS: There is a 1.7 cm right posterolateral bladder diverticulum containing a 5 mm calculus. The prostate is enlarged and demonstrates calcifications. BONES / SOFT TISSUES: There is degenerative disc disease of the spine. CT/CT abdomen pelvis w IV con IMPRESSION: 1. Mild left hydronephrosis secondary to a 5 mm mid ureteral calculus. 2. Additional left renal calculi as described. 3. Right posterolateral bladder diverticulum containing a 5 mm calculus. 4. Moderate amount of stool throughout the colon. Electronically signed by: Ronnie Mcdermott MD 07/19/2024 02:06 PM EDT
--- NOTE | ~2024-07-19 | CT_ITS ---
EXAMINATION: CT CERVICAL SPINE WITHOUT CONTRAST CLINICAL INFORMATION: Status post fall. COMPARISON: March 29, 2024. TECHNIQUE: Contiguous axial images through the cervical spine using 3 mm collimation with bone and soft tissue algorithm. Sagittal and coronal reformatted images acquired on bone algorithm. DLP: 420.[address] examination was performed using dose optimization techniques as appropriate, variously including the following: *Automated exposure control *Adjustment of mA and/or kV according to patient size (this includes techniques or standardized protocols for targeted exams where dose is matched to indication/reason for exam; i.e. extremities or head) *Use of iterative reconstruction technique FINDINGS: Craniocervical junction is intact with normal alignment between the occipital condyles and lateral masses of C1. Degenerative changes in the periodontal C1 region with a partially calcified pannus formation. Multilevel syndesmophyte formation and marginal osteophyte formation from C4-T2 and preservation of the intervertebral disc height. Chondrocalcinosis at the intervertebral disc C4-5. Facet joint hypertrophy bilaterally more pronounced at C3-4 and C4-5 levels. No gross malalignment between the vertebral bodies or the facet joints. Calcifications of the nuchal ligament at C4-5. C1 is intact. C2 is intact. C3 is intact. C4 is intact. C5 is intact. C6 is intact. C7 is intact. No prevertebral compartment hematoma. Calcified plaques in the carotic arteries. Tympanic cavities and mastoid air cells are aerated. Calcified plaques in the cavernous supraclinoid segments both ICAs and V4 segments of the left vertebral artery. 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 Fleischner guidelines were followed. Electronically signed by: Young Lal MD 07/19/2024 02:16 PM EDT
--- NOTE | 2024-07-19 10:15 | ECG_ITS ---
Test Reason : FALLS Blood Pressure : */* mmHG Vent. Rate : 73 BPM Atrial Rate : 73 BPM P-R Int : 156 ms QRS Dur : 88 ms QT Int : 430 ms P-R-T Axes : 65 -1 65 degrees QTcB Int : 473 ms Sinus rhythm with sinus arrhythmia with occasional Premature ventricular complexes Otherwise normal ECG When compared with ECG of 27-Apr-2023 14:08, Premature ventricular complexes are now Present Criteria for Septal infarct are no longer Present Referred By: Ammon Lopez Electronically Signed By: LUIS FLANAGAN MD
--- NOTE | 2024-07-19 10:17 | ED_ITS ---
HPI - Fall General Chief Complaint: Fall Stated Complaint: FALL X 2, HEMATOMA LT EYE,+COLLAR PER EMS Time Seen by Provider: 07/19/24 10:03 Source: patient and EMS Mode of arrival: EMS Limitations: no limitations History of Present Illness ED Provider: HPI Narrative: 89-year-old male presenting from independent living facility, with some staff available to assist as well, presented after falling down around 03:00 in the morning and then had no ability to get up, staff gained access to his apartment and called EMS, reportedly he fell yesterday as well striking his head and did not go to emergency department at that point. I took EMS report, patient presented covered in vomit in feces, he states vomited something that happens to him sometimes, he denied ongoing chest pain, he did endorse feeling called, no abdominal pain, he did have lower back pain and reported neck pain as well, cervical collar was kept in place. He has no family in the area reportedly and when asked him whether he wishes me to contact any family members at this time did not elaborate but he may have a friend available to assist with the care. Related Data Home Medications ?Medication ?Instructions ?Recorded ?Confirmed atorvastatin 20 mg tablet 20 mg PO DAILY 08/22/22 08/22/22 brimonidine 0.1 % eye drops 1 drp ophthalmic (eye) BEDTIME 08/22/22 08/22/22 (Alphagan P) bupropion HCl 300 mg 24 hr tablet, 300 mg PO DAILY 08/22/22 08/22/22 extended release dorzolamide 22.3 mg-timolol 6.8 1 drp ophthalmic (eye) BID 08/22/22 08/22/22 mg/mL eye drops dulaglutide 3 mg/0.5 mL 3 mg subcut QWEEK 08/22/22 08/22/22 subcutaneous pen injector (Trulicity) insulin degludec 100 unit/mL (3 20 unit subcut DAILY 08/22/22 08/22/22 mL) subcutaneous pen (Tresiba FlexTouch U-100 insulin) latanoprost 0.005 % eye drops 1 drp ophthalmic (eye) BID 08/22/22 08/22/22 losartan 25 mg tablet 25 mg PO DAILY 08/22/22 08/22/22 metformin 1,000 mg tablet 1,000 mg PO BID 08/22/22 08/22/22 netarsudil 0.02 % eye drops 1 drp ophthalmic (eye) BEDTIME 08/22/22 08/22/22 (Rhopressa) ramelteon 8 mg tablet 8 mg PO BEDTIME 08/22/22 08/22/22 tamsulosin 0.4 mg capsule 0.4 mg PO DAILY 08/22/22 08/22/22 Previous Rx's ?Medication ?Instructions ?Recorded docusate sodium 100 mg capsule 100 mg PO BEDTIME #30 caps 08/25/22 enoxaparin 40 mg/0.4 mL 40 mg (0.4 mL) subcut Q24H 42 days 08/25/22 subcutaneous syringe #16.8 mL oxycodone 5 mg tablet 5 mg PO Q6H PRN Pain, Severe (Pain 08/25/22 Scale 7-10) #12 tabs polyethylene glycol 3350 17 gram 17 g PO DAILY PRN constipation 08/25/22 oral powder packet #30 ea Allergies Allergy/AdvReac Type Severity Reaction Status Date / Time No Known Allergies Allergy Verified 07/19/24 10:27 Review of Systems 2 Constitutional: Constitutional: Reports as per [facility] Past Medical History Medical History Diabetes Hyperlipidemia Glaucoma Hypertension Social History Social History Housing: Assisted Living Facility Do you presently have visiting nurse or other home services: No Alcohol intake: current Alcohol intake frequency: a few times a week Alcohol type: wine and hard liquor Patient Tobacco Use Status: Never used Tobacco Smoked in Last 30 Days: No Use of substances other than those prescribed or required for medical reasons: No Advance Directives: Yes Advance Directives on File: Yes Advance Directives Date on File: 08/26/22 Do you have a plan to hurt others: No Plan service: No Physical Exam 2 Vital Signs: Vital Signs: Last Vital Signs Temp 97.6 F 07/19/24 14:14 Pulse 67 07/19/24 18:02 Resp 12 07/19/24 18:02 BP 131/58 L 07/19/24 18:02 Pulse Ox 99 07/19/24 18:02 O2 Del Method Room Air 07/19/24 18:02 O2 Flow Rate 2 07/19/24 14:14 BMI result Body Mass Index 29.5 Const: Other: * Gen: ?Elderly male, disheveled, some bruising over the face * HEENT nonicteric, dry oral mucosa, no blood in the airway * Neck: Tender mid cervical area * CV: RRR, * Resp: ?No wheezing rales rhonchi no stridor moving air well * Abd: ?Bowel sounds are present, no tenderness no rebound no rigidity * MSK: Decreased power bilateral lower extremities, able to lift his arms and assisted, no decreased range of motion and pain in both hips on movement, pelvis is stable * Skin: Left posterior scalp hematoma there was some dried blood, bruising over the right temporal area as well * Neuro: ?Alert and oriented x3, when asked was able to move upper and lower extremities symmetrically Course Reevaluation(s) Reevaluation #1: Patient signed out to me 17:00 pending a repeat head CT. Patient had low mechanism fall there was suspicion of tiny subarachnoid traumatic hemorrhage. Case discussed with the [facility] a trauma attending. Plan prior to my arrival established was repeat head CT here if indeed there is once again seen subarachnoid hemorrhage patient will be transferred accepted by Dr. Wolf. If not and this is artifact the patient can then be placed. Dhruv Schreiber MD Reevaluation #2: 1911: I reviewed the repeat head CT myself there is now a right subdural hematoma present. Patient is awake alert oriented no acute complaints of notified him about this and this on Giovani. I discussed these new findings with Dr. Wolf at [facility] trauma attending. She accepts the patient for ED to ED transfer as a trauma consult. No platelets or other reversals indicated at this time patient is awake neuro intact ALS transfer Dhruv Schreiber MD Medications Administered Discontinued Medications Generic Name Dose Route Start Last Admin Trade Name Freq PRN Reason Stop Dose Admin Sodium Chloride 1,000 mls @ 999 mls/hr 07/19/24 10:15 07/19/24 11:56 Ns IV 07/19/24 11:15 Infused .Q1H1M AISHA Infusion Magnesium Sulfate 2 gm in 50 mls @ 25 mls/hr 07/19/24 11:52 07/19/24 14:00 Magnesium Sulfate/H2o IV 07/19/24 13:51 Infused ONCE ONE Infusion Iohexol 100 ml 07/19/24 13:54 07/19/24 13:55 Iohexol 350 Mg/Ml 100 Ml Infus..Btl IV 07/19/24 13:55 85 ml ONCE ONE Administration Magnesium Oxide 400 mg 07/19/24 14:30 07/19/24 15:37 Magnesium Oxide 400 Mg Tablet PO 07/19/24 14:31 400 mg ONCE ONE Administration Medical Decision Making Medical Decision Making [facility] Narrative: 10:20 my considerations for further workup as below, if workup is negative I do not feel that he will be safe returning to his facility he does not have enough support and has presented with frequent falls. At this time I did not find any evidence for elder neglect, obtain his code status, no evidence for hip fractures or knee fractures or ankle fractures, there was no extensive bruising to his back Cervical collar kept in place as he was having pain He has got some other bruising to the face that are older past few days but he likely has had some frequent falls 14:14 patient has mild hydronephrosis with a 5 mm mid ureteral calculus he does have mild hematuria, has not really been complaining of any flank pain, still awaiting CT of the head and neck 230: , I do not feel that with frequent falls he is able to return to his current living situation, he also has 5 mm ureteral stone without UTI, and no renal dysfunction, this is not what is causing his issue, magnesium 1.4 we will be replaced and rechecked CT has : concern for trace intracranial hemorrhage and possible increased ischemic change in right consuelo, hard to be certain in this area, this appeared to of similar read as prior CT, this did not appear to be acute but there is suspect trace intracranial hemorrhage new since 03/29/2024. I will contact [facility] to discuss CT findings. 320: Awaiting call from [facility] Trauma Service, regarding below findings 434: Discussed care with Dr. Wolf she is a trauma surgeon at [facility], we decided that I will repeat a CT in 6 hours and if the findings still there paste he will be transferred to [facility]. She reviewed the images wondering if this is an artifact. CT with repeat at 18:00, care will be signed out to incoming provider. Suspected trace intracranial hemorrhage in the right lateral ventricle and suprasellar cistern. Right pontine low attenuation is slightly more pronounced than on the prior examination raising question of acute ischemic change versus evolution of prior infarct. Chronic sinusitis somewhat sparing the sphenoid sinuses and posterior ethmoid air cells. There is moderate frontotemporal atrophy with enlargement of ventricles that appears subjectively greater then the degree of atrophy raising question of hydrocephalus. Differential Diagnosis Differential Diagnoses: The differential diagnosis associated with the presentation includes Head injury, neck injury, dehydration, rhabdomyolysis, SBO, UTI, ACS, failure to thrive Admission/Observation Consideration of admission/observation: Escalation of care including admission/observation considered Lab Data MDM Lab Attestation statement: I reviewed the patient's lab results. 07/19/24 11:10 07/19/24 11:10 Labs: Lab Results 07/19/24 07/19/24 Range/Units 11:10 11:53 WBC 7.7 (4.8-10.8) X10*3/uL RBC 3.34 L (4.60-5.80) X10*6/uL Hgb 11.2 L (14.0-18.0) g/dl Hct 30.9 L (42.0-52.0) % MCV 92.5 (80.0-98.0) fL MCH 33.5 H (27.0-33.0) pg MCHC 36.2 H (31.0-36.0) g/dl RDW 13.4 (11.0-16.0) % Plt Count 106 L (160-400) X10*3/uL MPV 9.8 (9.4-12.4) fL Immature Gran % (Auto) 0.5 H (0.0-0.4) % Neut % (Auto) 75.7 H (45-73) % Lymph % (Auto) 16.8 L (20-40) % Woodward % (Auto) 6.2 (2-11) % Eos % (Auto) 0.5 (0-4) % Baso % (Auto) 0.3 (0-2) % Lymph # (Auto) 1.3 (1.2-4.9) X10*3/uL Woodward # (Auto) 0.5 (0.1-1.2) X10*3/uL Eos # (Auto) 0.0 (0.0-0.4) X10*3/uL Baso # (Auto) 0.0 (0.0-0.2) X10*3/uL Abs Immat Gran (auto) 0.04 H (0.00-0.03) X10*3/uL Absolute Neuts (auto) 5.8 (2.0-8.3) x10*3/uL Absolute Nucleated RBC 0.000 (0.0-0.012) X10*3/uL Nucleated RBC % (auto) 0.0 (0.0-0.2) /100WBC Sodium 141 (135-145) mmol/L Potassium 3.2 L (3.3-5.1) mmol/L Chloride 116 H (96-108) mmol/L Carbon Dioxide 21 L (22-29) mmol/L Anion Gap 7 L (12-20) BUN 14 (9-16) mg/dL Creatinine 0.78 (0.5-1.4) mg/dL Estim Creat Clear Calc 71.3 Estimated GFR > 60 Random Glucose 138 H (60-115) mg/dL Lactic Acid 0.5 (0.5-2.0) mmol/L Calcium 6.9 L D (8.4-10.2) mg/dL Magnesium 1.4 L* (1.6-2.6) mg/dL Total Bilirubin 0.9 (0.0-1.0) mg/dL AST 17 (5-37) U/L ALT 6 (0-40) U/L Alkaline Phosphatase 61 (39-117) U/L Total Creatine Kinase 98 (38-174) U/L Troponin I High Sens 5.0 D (<3.5-35.0) ng/L Total Protein 5.1 L (6.5-8.0) g/dL Albumin 3.1 L (3.5-5.0) g/dL Lipase 10 (8-78) U/L Urine Color Yellow Urine Appearance Clear Urine pH 7.5 (5.0-9.0) Ur Specific Dent 1.015 (1.005-1.025) Urine Protein 100 (2+) H (Neg-Trace) mg/dL Urine Glucose (UA) 250 H (Negative) mg/dL Urine Ketones Trace (Negative) mg/dL Urine Blood Large (3+) H (Negative) Urine Nitrite Negative (Negative) Ur Leukocyte Esterase Negative (Negative) Urine RBC >20 H (0-2) /HPF Urine WBC 0-5 (0-5) /HPF Ur Squamous Epith Cells 0-2 (0-2) /HPF Urine Bacteria None Seen (None Seen) Hyaline Casts 0-2 (0-2) /LPF Influenza Type A (PCR) NEGATIVE (Negative) Influenza Type B (PCR) NEGATIVE (Negative) RSV RNA Qual (PCR) NEGATIVE (Negative) SARS-CoV-2 RNA (RT-PCR) NEGATIVE (Negative) Independent Interpretation I performed an independent interpretation of an: EKG (73 beats per minute, otherwise normal ECG without dysrhythmia, AV daniella blocks or ST-T changes to suspect underlying ACS, my independent interpretation, there is an occasional PVC 1 of them was captured) Radiology Impression Discussion of test interpretation with radiology: I have reviewed the radiologist's reading. Radiologist Impression: MPRESSION: 1. Mild left hydronephrosis secondary to a 5 mm mid ureteral calculus. 2. Additional left renal calculi as described. 3. Right posterolateral bladder diverticulum containing a 5 mm calculus. 4. Moderate amount of stool throughout the colon. 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 Chronic Conditions Patient?s care impacted by: Diabetes Critical Care Time Critical Care Time Critical Care Time: Yes Total Critical Care Time: 60 Attestation: Time is exclusive of separately billable procedures. Time includes: direct patient care, patient reassessment, coordination of patient care, interpretation of data (laboratory data, pulse oximetry, arterial blood gases and chest xrays), review of patient's medical records, medical consultation and documentation of patient care. Procedures excluded from critical care time: central intravenous line placement and electrocardiography. Discharge Plan Discharge Clinical Impression: Frequent falls, Contusion of face, Right ureteral calculus, Hypomagnesemia Patient Disposition: [facility] Transfer Details: [facility] accepted for ED to ED Dr. Wolf. Subdural hematoma Prescriptions: No Action latanoprost 0.005 % drops 1 drp ophthalmic (eye) BID atorvastatin 20 mg tablet 20 mg PO DAILY tamsulosin 0.4 mg capsule 0.4 mg PO DAILY metformin 1,000 mg tablet 1,000 mg PO BID losartan 25 mg tablet 25 mg PO DAILY dorzolamide-timolol 22.3-6.8 mg/mL drops 1 drp ophthalmic (eye) BID bupropion HCl 300 mg tablet extended release 24 hr 300 mg PO DAILY ramelteon 8 mg tablet 8 mg PO BEDTIME Alphagan P 0.1 % drops 1 drp ophthalmic (eye) BEDTIME insulin degludec [Tresiba FlexTouch U-100] 100 unit/mL (3 mL) insulin pen 20 unit subcut DAILY Rhopressa 0.02 % drops 1 drp ophthalmic (eye) BEDTIME Trulicity 3 mg/0.5 mL pen injector 3 mg subcut QWEEK enoxaparin 40 mg/0.4 mL Syringe 40 mg subcut Q24H 42 Days Qty: 16.8 0RF polyethylene glycol 3350 17 gram Powder In Packet 17 g PO DAILY PRN (Reason: constipation ) Qty: 30 0RF docusate sodium 100 mg Capsule 100 mg PO BEDTIME Qty: 30 0RF oxycodone 5 mg Tablet 5 mg PO Q6H PRN (Reason: Pain, Severe (Pain Scale 7-10)) Qty: 12 0RF Rx Instructions: Partial Fill upon patient request. Print Language: Guatemalan
[2024-07-19] MEDS: 0.9 % Sodium Chloride 1,000 ML 999 ML IV (10:55)
[2024-07-19 11:18] LABS: MANUAL DIFF FLAG NO
[2024-07-19 11:19] LABS: Basophils Percent Auto 0.3 % (0-2); Eosinophils Percent Auto 0.5 % (0-4); Hematocrit 30.9 % (42.0-52.0); Hemoglobin 11.2 g/dl (14.0-18.0); Imm Gran Abs Auto 0.04 X10*3/uL (0.00-0.03); Imm Gran Pct Auto 0.5 % (0.0-0.4); Lymphocytes Absolute Auto 1.3 X10*3/uL (1.2-4.9); Lymphocytes Percent Auto 16.8 % (20-40); Mean Corpuscular HGB Conc 36.2 g/dl (31.0-36.0); Mean Corpuscular Hemoglobin 33.5 pg (27.0-33.0); Mean Corpuscular Volume 92.5 fL (80.0-98.0); Mean Platelet Volume 9.8 fL (9.4-12.4); Monocytes Absolute Auto 0.5 X10*3/uL (0.1-1.2); Monocytes Percent Auto 6.2 % (2-11); Neutrophils Absolute Auto 5.8 x10*3/uL (2.0-8.3); Neutrophils Percent Auto 75.7 % (45-73); Platelet Count 106 X10*3/uL (160-400); Red Blood Count 3.34 X10*6/uL (4.60-5.80); Red Cell Distribution Width 13.4 % (11.0-16.0); White Blood Count 7.7 X10*3/uL (4.8-10.8)
[2024-07-19 11:36] LABS: Lactic Acid 0.5 mmol/L (0.5-2.0)
[2024-07-19 11:40] LABS: Alanine Aminotransferase 6 U/L (0-40); Albumin Level 3.1 g/dL (3.5-5.0); Alkaline Phosphatase 61 U/L (39-117); Anion Gap 7 (12-20); Aspartate Amino Transferase 17 U/L (5-37); Bilirubin Total 0.9 mg/dL (0.0-1.0); Blood Urea Nitrogen 14 mg/dL (9-16); Calcium 6.9 mg/dL (8.4-10.2); Carbon Dioxide 21 mmol/L (22-29); Chloride 116 mmol/L (96-108); Creatinine Clr Calc Pharmacy 71.3; Estimated Glomerular Filt Rate > 60; Glucose Random 138 mg/dL (60-115); Lipase 10 U/L (8-78); Potassium 3.2 mmol/L (3.3-5.1); Sodium 141 mmol/L (135-145); Total Protein 5.1 g/dL (6.5-8.0)
[2024-07-19 11:43] LABS: Magnesium 1.4 mg/dL (1.6-2.6)
[2024-07-19] MEDS: Magnesium Sulfate/H2O 2 GM/50 ML PIGGYBACK IV (12:01)
--- OUTSIDE RECORDS SUMMARY | 2024-07-19 12:04 | XMS_ITS | Clinical Summary ---
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; Benign prostatic hyperplasia with lower urinary tract symptoms from Last 3 Months Surgical History Surgery Date Site/Laterality Comments 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 Medical History Medical History Date Comments Hypertension DX:Hypertension Type II diabetes mellitus (C MS/HCC V24, CMS/HCC V28) DX:Type II diabetes mellitus (HCC) Hyperlipidemia DX:Hyperlipidemi [...] Vaccines (1 of 2) 06/18/1985 RSV Immunization Adult Patients (1 - 1-dose 75+ series) 06/18/2010 Depression Screening 01/09/2022 Falls Risk Assessment 01/09/2022 Social Influencers of Health Screening 01/09/2022 Medicare Annual Wellness Visit 02/23/2023 02/23/2022 COVID-19 Vaccine ( - season) 2023 Influenza Vaccine (Season Ended) 2024 02/17/2021, 10/18/2019, 12/20/2018, Additional history exists Diabetes: Blood Sugar Control Test (HGBA1C) 12/05/2024 06/05/2024, 02/01/2024, 01/10/2024, Additional history exists Cholesterol Screening (Lipid Panel) 06/05/2029 06/05/2024 HIB Vaccines Aged Out No longer eligi [...] age to complete this topic Meningococcal B Vaccine Aged Out No l onger eligible based on patient's age to complete this topic RSV Immunization Patients Under 20 months Aged Out No longer eligible based on patient's age to complete this topic Varicella Vaccines Aged Out No longer eligible based on patient's age to complete this topic Procedures Procedure Name Priority Date/Time Associated Diagnosis Comments SST - GOLD Routine 06/05/2024 12:00 AM EDT Type 2 diabetes mellitus without complications (CMS/HCC V24, CMS/HCC V28) Other detention (current) drug therapy Benign prostatic hyperplasia with lower urinary tract symptoms URINALYSIS WITH REFLEX MICROSCOPIC Routine 06/05/2024 12:00 AM EDT Type 2 diabetes mellitus without complications (CMS/HCC V24, CMS/HCC V28) 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 Benign prostatic hyperplasia with lower urinary tract symptoms CBC WITH AUTO DIFFERENTIAL Routine 06/05/2024 12:00 AM EDT Type 2 diabetes mellitus without complications (CMS/HCC V24, CMS/HCC V28) Other detention (current) drug therapy Benign prostatic hyperplasia with lower urinary tract symptoms VITAMIN D 25 HYDROXY Routine 06/05/2024 12:00 AM EDT Type 2 diabetes mellitus without complications (CMS/HCC V24, CMS/HCC V28) Other detention (current) drug therapy Benign prostatic hyperplasia with lower urinary tract symptoms URINALYSIS WITH REFLEX MICROSCOPIC Routine 06/05/2024 12:00 AM EDT Type 2 diabetes mellitus without complications (CMS/HCC V24, CMS/HCC V28) 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 Benign prostatic hyperplasia with lower urinary tract symptoms THYROID STIMULATING HORMONE Routine 06/05/2024 12:00 AM EDT Type 2 diabetes mellitus without complications (CMS/HCC V24, CMS/HCC V28) 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 Benign prostatic hyperplasia with lower urinary tract symptoms PROSTATE SPECIFIC ANTIGEN SCREEN Routine 06/05/2024 12:00 AM EDT Type 2 diabetes mellitus without complications (CMS/HCC V24, CMS/HCC V28) 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 Benign prostatic hyperplasia with lower urinary tract symptoms MAGNESIUM Routine 06/05/2024 12:00 AM EDT Type 2 diabetes mellitus without complications (CMS/HCC V24, CMS/HCC V28) Other detention (current) drug therapy Benign prostatic hyperplasia with lower urinary tract symptoms HEMOGLOBIN A1C Routine 06/05/2024 12:00 AM EDT Type 2 diabetes mellitus without complications (CMS/HCC V24, CMS/HCC V28) 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 Benign prostatic hyperplasia with lower urinary tract symptoms THYROXINE FREE Routine 06/05/2024 12:00 AM EDT Type 2 diabetes mellitus without complications (CMS/HCC V24, CMS/HCC V28) 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 Benign prostatic hyperplasia with lower urinary tract symptoms C-REACTIVE PROTEIN Routine 06/05/2024 12 :00 AM EDT Type 2 diabetes mellitus without complications (CMS/HCC V24, CMS/HCC V28) Other detention (current) drug therapy Benign prostatic hyperplasia with lower urinary tract symptoms CBC AND DIFFERENTIAL Routine 06/05/2024 12:00 AM EDT Type 2 diabetes mellitus without complications (CMS/HCC V24, CMS/HCC V28) 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 Benign prostatic hyperplasia with lower urinary tract symptoms VITAMIN B12 Routine 06/05/2024 12:00 AM EDT Type 2 diabetes mellitus without complications (CMS/HCC V24, CMS/HCC V28) 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 Benign prostatic hyperplasia with lower urinary tract symptoms LIPID PANEL WITH REFLEX TO DIRECT LDL Routine 06/05/2024 12:00 AM EDT Type 2 diabetes mellitus without complications (CMS/HCC V24, CMS/HCC V28) Other detention (current) drug therapy Benign prostatic hyperplasia with lower urinary tract symptoms COMPREHENSIVE METABOLIC PANEL Routine 06/05/2024 12:00 AM EDT Type 2 diabetes mellitus without complications (CMS/HCC V24, CMS/HCC V28) 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 Results obtained with different assay methods or kits cannot be used interchangeably. Results cannot be interpreted as absolute evidence of the presence or absence of malignant disease. us Tyree TOUSSAINT LAB BLOOD ORDERABLES Final Res ult [facility] [address] [place] [address], [place] [phone] * (ABNORMAL) Urinalysis with reflex microscopic (06/05/2024 12:00 AM EDT) Specific [place] Urine 1.025 1.003 - 1.030 LAB URINALYSIS - AUTOMATED METHOD 06/05/2024 8:12 PM EDT [facility] pH, Urine 5.5 5.0 - 8.0 pH LAB URINALYSIS - AUTOMATED METHOD 06/05/2024 8:12 PM [facility] Leukocytes, Urine Trace(A) Negative LAB URINALYSIS - AUTOMATED METHOD 06/05/2024 8:12 PM [facility] Nitrite, Urine Negative Negative LAB URINALYSIS - AUTOMATED METHOD 06/05/2024 8:12 PM T [facility] Protein, Urine 30(A) <=Trace mg/dL LAB URINALYSIS - AUTOMATED METHOD 06/05/2024 8:12 PM [facility] Glucose, Urine >=1000(A) Negative mg/dL LAB URINALYSIS - AUTOMATED METHOD 06/05/2024 8:12 PM [facility] Ketones, Urine Negative Negative mg/dL LAB URINALYSIS - AUTOMATED METHOD 06/05/2024 8:12 PM EDT [facility] Urobilinogen , Urine 0.2 0.2 - 1.0 mg/dL LAB URINALYSIS - AUTOMATED METHOD 06/05/2024 8:12 PM [facility] Bilirubin, Urine Negative Negative LAB URINALYSIS - AUTOMATED METHOD 06/05/2024 8:12 PM [facility] Blood, Urine Negative Negative LAB URINALYSIS - AUTOMATED METHOD 06/05/2024 8:12 PM [facility] RBC, Urine 0.5 0 - 4 /HPF LAB URINALYSIS - AUTOMATED METHOD 06/05/2024 8:12 PM [facility] WBC, Urine 7.5(H) 0 - 4 /HPF LAB URINALYSIS - AUTOMATED METHOD 06/05/2024 8:12 PM [facility] Squamous Epithelial, Urine 91(H) 0 - 60 /LPF LAB URINALYSIS - AUTOMATED METHOD 06/05/2024 8:12 PM [facility] Bacteria, Urine Few(A) Negative /HPF LAB URINALYSIS - AUTOMATED METHOD 06/05/2024 8:12 PM [facility] Hyaline Casts, Urine 1.2 0 - 3 /LPF LAB URINALYSIS - AUTOMATED METHOD 06/05/2024 8:12 PM [facility] Yeast, Urine Present(A) None /HPF LAB URINALYSIS - AUTOMATED METHOD 06/05/2024 8:12 PM [facility] Urine Urine specimen obtained by clean catch procedure / Unknown 06/05/2024 06/05/2024 6:16 PM EDT us Tyree TOUSSAINT LAB URINE ORDERABLES Final Res ult [facility] [address] [place] [address], [place] [phone] * SST tube (06/05/2024 12:00 AM EDT) Extra Tube Hold for add-ons. 06/06/2024 7:01 PM EDT [facility] Comment:Auto resulted. Blood Venous blood specimen / Unknown 06/05/2024 06/05/2024 6:16 PM EDT Tyree TOUSSAINT LAB BLOOD ORDERABLES Final Res ult [facility] [address] [place] [address], [place] [phone] * Lipid panel with reflex to direct LDL (06/05/2024 12:00 AM EDT) Cholesterol 98 0 - 200 mg/dL LAB CHEMISTRY METHOD 06/06/2024 6:30 AM EDT [facility] Triglycerides 148 0 - 150 mg/dL LAB CHEMISTRY METHOD 06/06/2024 6:30 AM EDT [facility] HDL 47 >=40 mg/dL LAB CHEMISTRY METHOD 06/06/2024 6:30 AM EDT [facility] LDL Calculated 21 0 - 100 mg/dL LAB CHEMISTRY METHOD 06/06/2024 6:30 AM [facility] VLDL Cholesterol Alvaro 29.6 mg/dL LAB CHEMISTRY METHOD 06/06/2024 6:30 AM EDT [facility] Non HDL Chol. (LDL+VLDL) 51 <145 mg/dL LAB CHEMISTRY METHOD 06/06/2024 6:30 AM EDT [facility] Chol/HDL Ratio 2.1 0.0 - 4.4 LAB CHEMISTRY METHOD 06/06/2024 6:30 AM EDT [facility] Blood Venous blood specimen / Unknown 06/05/2024 06/05/2024 6:16 PM EDT us Tyree TOUSSAINT LAB BLOOD ORDERABLES Final Res ult [facility] [address] [place] [address], * (ABNORMAL) CBC auto differential (06/05/2024 12:00 AM EDT) WBC 6.5 4.8 - 10.8 K/mcL LAB HEMETOLOGY METHOD 06/05/2024 8:01 PM EDT [facility] RBC 4.00(L) 4.50 - 5.50 M/mcL LAB HEMETOLOGY METHOD 06/05/2024 8:01 PM [facility] Hemoglobin 13.0(L) 13.5 - 17.5 g/dL LAB HEMETOLOGY METHOD 06/05/2024 8:01 PM [facility] Hematocrit 39.7(L) 42.0 - 54.0 % LAB HEMETOLOGY METHOD 06/05/2024 8:01 PM [facility] MCV 99.7(H) 79.0 - 98.0 FL LAB HEMETOLOGY METHOD 06/05/2024 8:01 PM [facility] MCH 32.7(H) 27.0 - 32.0 pcg LAB HEMETOLOGY METHOD 06/05/2024 8:01 PM [facility] MCHC 32.7 32.0 - 37.0 g/dL LAB HEMETOLOGY METHOD 06/05/2024 8:01 PM [facility] RDW 15.1(H) 11.0 - 15.0 % LAB HEMETOLOGY METHOD 06/05/2024 8:01 PM [facility] Platelets 188 130 - 400 K/mcL LAB HEMETOLOGY METHOD 06/05/2024 8:01 PM [facility] MPV 10.5 7.0 - 11.0 FL LAB HEMETOLOGY METHOD 06/05/2024 8:01 PM [facility] NRBC 0.0 <1.0 % LAB HEMETOLOGY METHOD 06/05/2024 8:01 PM [facility] NRBC Absolute 0.00 <0.10 K/mcL LAB HEMETOLOGY METHOD 06/05/2024 8:01 PM [facility] Neutrophils Relative 53.2 % LAB HEMETOLOGY METHOD 06/05/2024 8:01 PM [facility] Lymphocytes Relative 30.7 % LAB HEMETOLOGY METHOD 06/05/2024 8:01 PM [facility] Monocytes Relative 6.2 % LAB HEMETOLOGY METHOD 06/05/2024 8:01 PM [facility] Eosinophils Relative 8.9 % LAB HEMETOLOGY METHOD 06/05/2024 8:01 PM [facility] Basophils Relative 0.8 % LAB HEMETOLOGY METHOD 06/05/2024 8:01 PM [facility] Immature Granulocytes Relative 0.2 % LAB HEMETOLOGY METHOD 06/05/2024 8:01 PM [facility] Neutrophils Absolute 3.46 1.50 - 7.00 K/mcL LAB HEMETOLOGY METHOD 06/05/2024 8:01 PM [facility] Lymphocytes Absolute 1.99 1.00 - 5.00 K/mcL LAB HEMETOLOGY METHOD 06/05/2024 8:01 PM [facility] Monocytes Absolute 0.40 0.20 - 1.00 K/mcL LAB HEMETOLOGY METHOD 06/05/2024 8:01 PM [facility] Eosinophils Absolute 0.58(H) 0.00 - 0.50 K/mcL LAB HEMETOLOGY METHOD 06/05/2024 8:01 PM [facility] Basophils Absolute 0.05 0.00 - 0.20 K/[facility] LAB HEMETOLOGY METHOD 06/05/2024 8:01 PM EDT [facility] Immature Granulocytes Absolute 0.01 0.00 - 0.03 K/[facility] LAB HEMETOLOGY METHOD 06/05/2024 8:01 PM EDT [facility] Blood Venous blood specimen / Unknown 06/05/2024 06/05/2024 6:16 PM EDT Tyree TOUSSAINT LAB BLOOD ORDERABLES Final Res ult [facility] [address] [place] [address], [place] [phone] * (ABNORMAL) Vitamin D 25 hydroxy (06/05/2024 12:00 AM EDT) Vit D, 25-Hydroxy 19.1(L) 30.0 - 80.0 ng/mL LAB CHEMISTRY METHOD 06/06/2024 6:30 AM EDT [facility] Blood Venous blood specimen / Unknown 06/05/2024 06/05/2024 6:16 PM EDT us Tyree TOUSSAINT LAB BLOOD ORDERABLES Final Res ult [facility] [address] [place] [address], [place] [phone] * C-reactive protein (06/05/2024 12:00 AM EDT) C-Reactive Protein <0.29 <=0.50 mg/dL LAB CHEMISTRY METHOD 06/05/2024 10:19 PM EDT [facility] Blood Venous blood specimen / Unknown 06/05/2024 06/05/2024 6:16 PM EDT Tyree TOUSSAINT LAB BLOOD ORDERABLES Final Res ult Performing Organization Address [facility]/ZIP Co de Phone Number [facility] [address] [place] [address], [place] [phone] * Thyroid stimulating hormone (06/05/2024 12:00 AM EDT) TSH 3.56 0.40 - 4.00 mcIU/mL LAB CHEMISTRY METHOD 06/05/2024 10:50 PM EDT [facility] Blood Venous blood specimen / Unknown 06/05/2024 06/05/2024 6:16 PM EDT Tyree TOUSSAINT LAB BLOOD ORDERABLES Final Res ult Performing Organization Address [facility] Co de Phone Number [facility] [address] [place] [address], [place] [phone] * Thyroxine free (06/05/2024 12:00 AM EDT) Free T4 1.10 0.70 - 1.80 ng/dL LAB CHEMISTRY METHOD 06/05/2024 10:50 PM EDT [facility] Blood Venous blood specimen / Unknown 06/05/2024 06/05/2024 6:16 PM EDT Tyree TOUSSAINT LAB BLOOD ORDERABLES Final Res ult Performing Organization Address City/[facility]/ZIP Co de Phone Number [facility] [address] [place] [address], [place] [phone] * Magnesium (06/05/2024 12:00 AM EDT) Magnesium 2.2 1.9 - 2.6 mg/dL LAB CHEMISTRY METHOD 06/05/2024 10:51 PM EDT [facility] Blood Venous blood specimen / Unknown 06/05/2024 06/05/2024 6:16 PM EDT us Tyree TOUSSAINT LAB BLOOD ORDERABLES Final Res ult Performing Organization Address City/[facility]/ZIP Co de Phone Number [facility] [address] [place] [address], [place] [phone] * Hemoglobin A1c (06/05/2024 12:00 AM EDT) [facility] Hemoglobin A1C 6.4 <6.5 % LAB CHEMISTRY METHOD 06/06/2024 9:52 AM EDT [facility] Mean Bld Glu Estim. 137 mg/dL LAB CHEMISTRY METHOD 06/06/2024 9:52 AM EDT [facility] Blood Venous blood specimen / Unknown 06/05/2024 06/05/2024 6:16 PM EDT us Tyree TOUSSAINT LAB BLOOD ORDERABLES Final Res ult Performing Organization Address [facility] Co de Phone Number [facility] [address] [place] [address], [place] [phone] * Vitamin B12 (06/05/2024 12:00 AM EDT) [facility] Vitamin B-12 449 250 - 900 pcg/mL LAB CHEMISTRY METHOD 06/05/2024 10:50 PM EDT [facility] Blood Venous blood specimen / Unknown 06/05/2024 06/05/2024 6:16 PM EDT us Tyree TOUSSAINT LAB BLOOD ORDERABLES Final Res ult Performing Organization Address City/[facility]/ZIP Co de Phone Number [facility] [address] [place] [address], [place] [phone] * (ABNORMAL) Comprehensive metabolic panel (06/05/2024 12:00 AM EDT) Sodium 139 133 - 145 mmol/L LAB CHEMISTRY METHOD 06/06/2024 6:30 AM [facility] Potassium 4.4 3.5 - 5.5 mmol/L LAB CHEMISTRY METHOD 06/06/2024 6:30 AM [facility] Chloride 108 96 - 110 mmol/L LAB CHEMISTRY METHOD 06/06/2024 6:30 AM [facility] CO2 27 21 - 32 mmol/L LAB CHEMISTRY METHOD 06/06/2024 6:30 AM [facility] Anion Gap 4 3 - 11 LAB CHEMISTRY METHOD 06/06/2024 6:30 AM [facility] Glucose 104(H) 70 - 100 mg/dL LAB CHEMISTRY METHOD 06/06/2024 6:30 AM [facility] BUN 19 5 - 25 mg/dL LAB CHEMISTRY METHOD 06/06/2024 6:30 AM [facility] Creatinine 1.77(H) 0.70 - 1.30 mg/dL LAB CHEMISTRY METHOD 06/06/2024 6:30 AM [facility] eGFR 36(L) >=60 mL/min/1. 73m2 LAB CHEMISTRY METHOD 06/06/2024 6:30 AM [facility] Comment:Calculation based on the??Chronic Kidney Disease Epidemiology Collaboration (CKD-EPI) equation refit??without adjustment for race. BUN/Creatinine Ratio 10.7 LAB CHEMISTRY METHOD 06/06/2024 6:30 AM [facility] Calcium 8.8 8.5 - 10.5 mg/dL LAB CHEMISTRY METHOD 06/06/2024 6:30 AM [facility] AST (SGOT) 23 10 - 42 unit/L LAB CHEMISTRY METHOD 06/06/2024 6:30 AM [facility] ALT (SGPT) 48 10 - 60 unit/L LAB CHEMISTRY METHOD 06/06/2024 6:30 AM EDT [facility] Alkaline Phosphatase 97 42 - 121 unit/L LAB CHEMISTRY METHOD 06/06/2024 6:30 AM EDT [facility] Total Protein 7.3 6.0 - 8.0 g/dL LAB CHEMISTRY METHOD 06/06/2024 6:30 AM EDT [facility] Albumin 3.7 3.2 - 5.0 g/dL LAB CHEMISTRY METHOD 06/06/2024 6:30 AM EDT [facility] Total Bilirubin 0.6 0.0 - 1.4 mg/dL LAB CHEMISTRY METHOD 06/06/2024 6:30 AM EDT [facility] Blood Venous blood specimen / Unknown 06/05/2024 06/05/2024 6:16 PM EDT us Tyree TOUSSAINT LAB BLOOD ORDERABLES Final Res ult [facility] [address] [place] [address], from Last 3 Months Insurance MEDICARE Care Teams Hospital Nursing Assistant Relationship Specialty Start Date End Date Uli Arevalo MD [address] PCP - General Internal Medicine 04/13/21
[2024-07-19 12:13] LABS: Appearance Urine Clear; Color Urine Yellow; Glucose Urine UA 250 mg/dL (Negative); Leukocyte Esterase Urine Negative (Negative); Nitrite Urine Negative (Negative); PH 7.5 (5.0-9.0); Specific Gravity - Urine 1.015 (1.005-1.025); UMIC TRIGGER UA YES; Urine Blood Large (3+) (Negative); Urine Ketones Trace mg/dL (Negative); Urine Protein 100 (2+) mg/dL (Neg-Trace)
[2024-07-19 12:15] LABS: Bacteria Urine None Seen (None Seen); Hyaline Casts Urine 0-2 /LPF (0-2); RBC Urine >20 /HPF (0-2); Squamous Epithelial Cell Urine 0-2 /HPF (0-2); WBC Urine 0-5 /HPF (0-5)
[2024-07-19 12:19] LABS: Influenza A PCR NEGATIVE (Negative); Influenza B PCR NEGATIVE (Negative); Resp Syncy Virus RNA Qual PCR NEGATIVE (Negative); SARS COV2 PCR INHOUSE NEGATIVE (Negative)
[2024-07-19] MEDS: iohexoL 350 MG/ML 100 ML INFUS..BTL IV (13:55)
[2024-07-19] MEDS: Magnesium Oxide 400 MG TABLET PO (15:37)
--- NOTE | 2024-07-19 15:48 | PC.NURSE ---
Per provider, pt can eat.
== END 2024-07-19 20:22 | disposition short-term general hospital (02) ==
PROVIDERS: Emergency Medicine; Emergency Provider Emergency Medicine
DX: S00.83XA Contusion of other part of head, initial encounter (principal); W19.XXXA Unspecified fall, initial encounter; N13.2 Hydronephrosis with renal and ureteral calculous obstruction; E83.42 Hypomagnesemia; R29.6 Repeated falls; Z91.81 History of falling; I49.3 Ventricular premature depolarization; M54.50 Low back pain, unspecified; E11.9 Type 2 diabetes mellitus without complications; I10 Essential (primary) hypertension; E78.5 Hyperlipidemia, unspecified; Z03.818 Encounter for observation for suspected exposure to other biological agents ruled out; Z79.02 Long term (current) use of antithrombotics/antiplatelets; Z79.899 Other long term (current) drug therapy; Z79.4 Long term (current) use of insulin; Z79.85 Long-term (current) use of injectable non-insulin antidiabetic drugs; Z79.84 Long term (current) use of oral hypoglycemic drugs; Y93.9 Activity, unspecified; Y92.099 Unspecified place in other non-institutional residence as the place of occurrence of the external cause; Y99.9 Unspecified external cause status
CPT/HCPCS: 0241U; 36415; 70450; 72125; 74177; 80053; 81001; 82550; 83605; 83690; 83735; 84484; 85025; 93005; 96361; 96365; 96366; 97162; 99285; J3475; Q9967

== ENCOUNTER → 2024-07-19 10:15 | Outpatient (BNV) | payer MEDICARE, OTHER, SELFPAY | PROVIDERS: Emergency Provider Emergency Medicine; Visit Provider Internal Medicine Cardiovascular Disease | DX: I49.3 Ventricular premature depolarization (principal); I49.9 Cardiac arrhythmia, unspecified | CPT/HCPCS: 93010 ==

== ENCOUNTER → 2024-07-19 10:15 | Outpatient (BNV) | payer MEDICARE, OTHER, SELFPAY | PROVIDERS: Emergency Provider Emergency Medicine; Visit Provider Radiology Diagnostic Radiology | DX: N20.2 Calculus of kidney with calculus of ureter (principal); K56.41 Fecal impaction; I62.00 Nontraumatic subdural hemorrhage, unspecified; M54.2 Cervicalgia | CPT/HCPCS: 74177 ==